=== PATIENT | male | born 1960 | race Caucasian/White ===

== ENCOUNTER 2019-11-11 10:57 | Emergency (ER) | payer SELFPAY ==
--- NOTE | 2019-11-11 10:59 | ED_ITS ---
Entered by Horacio James, acting as scribe for Tess Chavez MD HPI - General Adult General: Chief complaint: General Medical Stated complaint: High BP Time Seen by Provider: 11/11/19 11:05 History of Present Illness: HPI narrative: 58 yo male presents with hypertension. Pt states that he has ringing in his ears. Pt states that he hasn't had issues with his blood pressure before. Pt states that he went in for a physical on Tuesday, noticed his blood pressure was elevated. Pt states that he has felt sluggish for a few days. MD complaint: hypertension Associated symptoms: Reports chest pain (pressure more than pain); Deny dyspnea, headache(s), nausea, rash or vomiting Review of Systems Const: Denies: fever, chills, body aches or change in appetite Eyes: Denies: blurry vision or eye discomfort ENMT: Denies: throat pain or dental pain Card: Reports: chest pain (pressure more than pain) Resp: Denies: shortness of breath GI: Denies: abdominal pain, nausea, vomiting or diarrhea : Denies: painful urination Musc: Denies: neck pain or back pain Skin/Breast: Denies: rash Neuro: Denies: headache Psych: Denies: depression Sean/Lymph: Denies: easy bruising All/Imm: Denies: hives PFSH ED PFSH: Social History Smoking and tobacco status: current every day smoker Current gender identity: Male Physical Exam Const: COMMON NORMALS: no apparent distress, oriented x3 and healthy appearing HENMT: COMMON NORMALS: normocephalic and head/scalp atraumatic HEAD & SCALP: normocephalic and atraumatic GENERAL EAR: other (ringing in his ears) Eye: COMMON NORMALS: PERRL and EOMs intact bilaterally PUPIL: Yes PERRL Neck/C-Spine: COMMON NORMALS: full ROM and supple Chest: COMMONS NORMALS: inspection of chest normal and palpation of chest normal Resp: COMMON NORMALS: normal respiratory effort, no retractions, no use of accessory muscles and clear to auscultation bilaterally AUSCULTATION: clear to auscultation bilaterally Cardio: COMMON NORMALS: regular rate, regular rhythm and no murmurs RATE: regular rate RHYTHM: regular rhythm GI: COMMON NORMALS: normal to inspection, nondistended, normoactive bowel sounds, soft to palpation, non-tender and no masses PALPATION: Yes soft Extremity: COMMON NORMALS: normal to inspection and full ROM Neuro: COMMON NORMALS: oriented x3, moves all extremities and no focal motor deficits Psych: COMMON NORMALS: mental status grossly normal, thought process normal and cooperative THOUGHT PROCESS: normal thought process Skin: COMMON NORMALS: no rashes or lesions noted and no wounds GENERAL SKIN EXAM: no rashes or lesions noted Course Vital Signs: Vital signs: Vital Signs Temperature 97.9 F 11/11/19 11:00 Pulse Rate 86 11/11/19 12:25 Respiratory Rate 18 11/11/19 12:25 Blood Pressure 166/106 11/11/19 12:25 Pulse Oximetry 98 11/11/19 12:25 MDM - General Adult MDM Narrative: Medical decision making narrative: Patient presents here with hypertension is likely been chronic in nature. His lab work is all normal blood pressures improved here. We will start him on HCTZ. Patient also has neutropenia and he states he has ProFe area. Informed him he needs to get a PCP and will set him up with 1 here to follow his white cell count and his blood pressure. Patient's had no fever or signs of any illness. He is to return if worsening. Lab Data: Labs: Lab Results 11/11/19 11/11/19 11/11/19 Range/Units 11:11 11:11 11:11 WBC 2.6 L (4.0-10.0) 10^3/ uL RBC 4.33 (4.1-5.3) 10^6/u L Hgb 14.6 (11.7-16.6) g/dL Hct 42.3 (42.0-52.0) % MCV 97.7 H (80-94) fL MCH 33.7 (28.0-34.0) pg MCHC 34.5 (30.0-36.0) g/dL RDW 13.3 (12.1-15.1) % Plt Count 118 L (130-400) 10^3/c mm MPV 9.8 (7.4-10.4) fL Neut % (Auto) 28.8 % Lymph % (Auto) 55.8 % [place] % (Auto) 10.0 % Eos % (Auto) 4.6 % Baso % (Auto) 0.8 % Neut # (Auto) 0.8 L* (1.8-7.7) 10^3/u L Lymph # (Auto) 1.5 (0.8-4.8) 10^3/u L [place] # (Auto) 0.3 (0.2-0.9) 10^3/u L Eos # (Auto) 0.1 (0.0-0.8) 10^3/u L Baso # (Auto) 0.0 (0.0-0.1) 10^3/u L Nucleated RBC % (a uto) 0 % Nucleated RBCs # 0.0 /100WBC Sodium 139 (136-145) mmol/L Potassium 3.7 (3.5-5.1) mmol/L Chloride 101 (98-107) mmol/L Carbon Dioxide 28 (22-29) mmol/L Anion Gap 13.7 (5-19) BUN 8 (8-23) mg/dL Creatinine 1.0 (0.7-1.2) mg/dL GFR Calculation 76.2 L (90-130) mL/min Glucose 153 H (65-115) mg/dL Calcium 9.7 (8.5-10.5) mg/dL Total Bilirubin 0.5 (0.15-1.2) mg/dL AST 48 H (0-40) U/L ALT 57 H (0-41) U/L Alkaline Phosphata se 87 (40-130) IU/L Troponin T Baselin e 15 (0-15) ng/mL Total Protein 7.0 (6.6-8.7) g/dL Albumin 3.9 (3.5-5.2) g/dL Globulin 3.1 (1.3-4.6) g/dL EKG Data^: EKG 1: Attestation: I personally reviewed and interpreted this EKG as follows: EKG interpretation date: 11/11/19 EKG interpretation time: 11:11 Computer generated interpretation: Normal sinus rhythm heart rate [address] or T wave abnormalities QRS 98 QTC 405 Discharge Plan Discharge Patient Disposition: Home, Self-Care Clinical Impression: Neutropenia Hypertension Qualifiers: Hypertension type: essential hypertension Qualified Code(s): I10 - Essential (primary) hypertension Condition: Stable Prescriptions: New hydrochlorothiazide 25 mg tablet 25 mg PO DAILY Qty: 30 RF: 0 Discharge Orders: Discharge Order (Routine); Ordered 11/11/19 Ordered By: Tess Chavez Discharge Diet: Advance as tolerated Discharge Activity: Resume usual activity Patient Instructions: Hypertension (ED) Discharge Date/Time: 11/11/19 12:28 Coding Level of Care Code ED Agricultural Lender for Chg Fwd Exam Comprehensive The documentation recorded by the Jacob shine Kialy, accurately reflects the service I personally performed and the decisions made by Kathy nowak Korby, MD
[2019-11-11 11:00] VITALS: BP 204/137; PULSE 89; RESP 18; TEMP 36.6; O2SAT 98; BMI 22.8
--- NOTE | 2019-11-11 11:09 | ECG_ITS ---
Measurements Intervals [place] Rate: 86 P: 65 CA: 177 QRS: 6 QRSD: 98 T: 48 QT: 362 QTc: 433 SINUS RHYTHM No previous ECG available for comparison Electronically Signed On 11-11-2019 20:00:07 COMPUTED TOMOGRAPHY TECHNICIAN by Allan Munguia M.D. [email or web address]
[2019-11-11] MEDS: labetalol 5 mg/mL SDV 20mL 20 MG IVP (11:22)
[2019-11-11 11:41] LABS: Basophils % 0.8 %; Eosinophils # 0.1 10^3/uL (0.0-0.8); Eosinophils % 4.6 %; Hematocrit 42.3 % (42.0-52.0); Hemoglobin 14.6 g/dL (11.7-16.6); Lymphocytes # 1.5 10^3/uL (0.8-4.8); Lymphocytes % 55.8 %; Mean Corpuscular HGB Conc 34.5 g/dL (30.0-36.0); Mean Corpuscular Hemoglobin 33.7 pg (28.0-34.0); Mean Corpuscular Volume 97.7 fL (80-94); Mean Platelet Volume 9.8 fL (7.4-10.4); Monocytes # 0.3 10^3/uL (0.2-0.9); Neutrophils % 28.8 %; Nucleated Red Blood Cells % 0 %; Platelet Count 118 10^3/cmm (130-400); Red Blood Count 4.33 10^6/uL (4.1-5.3); Red Cell Distribution Width 13.3 % (12.1-15.1); White Blood Count 2.6 10^3/uL (4.0-10.0)
[2019-11-11 11:42] LABS: Alanine Aminotransferase 57 U/L (0-41); Albumin Level 3.9 g/dL (3.5-5.2); Alkaline Phosphatase 87 IU/L (40-130); Anion Gap 13.7 (5-19); Aspartate Amino Transferase 48 U/L (0-40); Blood Urea Nitrogen 8 mg/dL (8-23); Calcium 9.7 mg/dL (8.5-10.5); Carbon Dioxide 28 mmol/L (22-29); Chloride 101 mmol/L (98-107); Globulin 3.1 g/dL (1.3-4.6); Glomerular Filtration Rate 76.2 mL/min (90-130); Glucose 153 mg/dL (65-115); Neutrophils # 0.8 10^3/uL (1.8-7.7); Potassium 3.7 mmol/L (3.5-5.1); Sodium 139 mmol/L (136-145); Total Bilirubin 0.5 mg/dL (0.15-1.2)
[2019-11-11 11:44] LABS: Troponin(5th) Baseline 15 ng/mL (0-15)
--- NOTE | 2019-11-11 11:46 | XRR_ITS ---
PROCEDURE INFORMATION: Exam: XR Chest, 1 View Exam date and time: 11/11/2019 11:47 AM Age: 58 years old Clinical indication: Pain; Chest pressure; Additional info: HTN TECHNIQUE: Imaging protocol: XR of the chest Views: 1 view. COMPARISON: No relevant prior studies available. FINDINGS: Lungs: Unremarkable. No consolidation. Pleural space: Unremarkable. No pleural effusion. No pneumothorax. Heart/Mediastinum: Unremarkable. No cardiomegaly. Bones/joints: Unremarkable. XR/XR chest 1V portable [id number] IMPRESSION: No acute findings.
[2019-11-11 11:59] VITALS: BP 150/92; PULSE 89; RESP 18; O2SAT 98
[2019-11-11 12:25] VITALS: BP 166/106; PULSE 86; RESP 18; O2SAT 98
--- NOTE | 2019-11-12 14:28 | DCPLANNER ---
regional business manager had message to speak with patient about getting established with a primary care physician. regional business manager called patient, unable to speak with patient or leave a voicemail for patient. A recording stated that patients phone is no longer in service.
== END 2019-11-11 12:28 | disposition home or self-care (01) ==
PROVIDERS: Emergency Provider Emergency Medicine
DX: D70.9 Neutropenia, unspecified (principal); I10 Essential (primary) hypertension; F17.200 Nicotine dependence, unspecified, uncomplicated
CPT/HCPCS: 36415; 71045; 80053; 84484; 85025; 93005; 96374; 99281; 99283; J3490

== ENCOUNTER → 2020-05-15 16:12 | Outpatient (BNVA) | payer OTHER, SELFPAY | PROVIDERS: Visit Provider Internal Medicine | DX: B18.2 Chronic viral hepatitis C (principal); Z12.11 Encounter for screening for malignant neoplasm of colon | CPT/HCPCS: 80053; 82105; 84443; 85025 ==

== ENCOUNTER 2020-05-19 07:32 | Inpatient (IN) | payer SELFPAY ==
[2020-05-19] VITALS (15 sets, daily range): BP systolic 100–155; BP diastolic 71–104; PULSE 57–113; RESP 13–221; TEMP 36.3–37.5; O2SAT 95–100; BMI 23.6
--- NOTE | 2020-05-19 07:48 | XRR_ITS ---
PROCEDURE INFORMATION: Exam: XR Chest, 1 View Exam date and time: 05/19/2020 7:53 AM Age: 59 years old Clinical indication: Patient HX: Hematemesis starting last night; Additional info: Syncope TECHNIQUE: Imaging protocol: XR of the chest Views: Frontal portable upright view of the chest. COMPARISON: CR XR chest 1V portable [id number] 11/11/2019 11:58 AM FINDINGS: Lungs: The lungs are clear bilaterally. The pulmonary vasculature is normal. Pleural space: No pleural effusion. No pneumothorax. Heart/Mediastinum: The heart is normal in size and contour. Mediastinum: Stable. Bones/joints: Stable. XR/XR chest 1V portable [id number] IMPRESSION: No acute cardiopulmonary abnormality identified.
--- NOTE | 2020-05-19 07:51 | CTR_ITS ---
PROCEDURE INFORMATION: Exam: CT Abdomen And Pelvis With Contrast Exam date and time: 05/19/2020 7:53 AM Age: 59 years old Clinical indication: Nausea and vomiting; Abdominal pain; Patient HX: Epigastric pain with nausea and coffee ground emesis; Additional info: Gib TECHNIQUE: Imaging protocol: Computed tomography of the abdomen and pelvis with intravenous contrast. Radiation optimization: All CT scans at this facility use at least one of these dose optimization techniques: automated exposure control; mA and/or kV adjustment per patient size (includes targeted exams where dose is matched to clinical indication); or iterative reconstruction. Contrast material: OMNI 300; Contrast volume: 95 ml; Contrast route: INTRAVENOUS (IV); COMPARISON: No relevant prior studies available. RADIATION DOSE METRICS: Total DLP (mGy-cm): 449.79 FINDINGS: Mediastinal space: A small sliding hiatal hernia is present above the level of the diaphragm. Small enhancing paraesophageal varices. Liver: Normal. No mass. Gallbladder and bile ducts: Normal. No calcified stones. No ductal dilation. Pancreas: Normal. No ductal dilation. Spleen: ToThe spleen demonstrates a few small granulomatous calcifications. Adrenals: 10.6 mm and 10.1 mm left adrenal nodules. Kidneys and ureters: Normal. No hydronephrosis. Stomach and bowel: Upper gastric body mucosal hypertrophy. Sigmoid and descending colonic diverticula are present without evidence of diverticulitis. No active gastrointestinal bleeding site identified. Appendix: The vermiform appendix is normal. Intraperitoneal space: Unremarkable. No free air. No significant fluid collection. Vasculature: Mild aortic atherosclerotic calcification without aneurysm. The iliac arteries show mild bilateral atherosclerotic calcifications without evidence of aneurysm. Lymph nodes: No enlarged lymph nodes. Bladder: Unremarkable as visualized. Reproductive: The prostate gland demonstrates nonspecific parenchymal calcifications. Bones/joints: Small L4 vertebral body hemangioma. L2-L3 degenerative disc disease with mild retrolisthesis and spondylosis. Diffuse osteopenia. Soft tissues: Right pelvic phlebolith. CT/CT abdomen pelvis w con* [id number] IMPRESSION: 1. Nonspecific gastritis. 2. Small left adrenal nodules. Comparison with prior studies recommended, if available. Otherwise followup may be helpful. 3. Diverticulosis. 4. Small hiatal hernia. 5. Small enhancing paraesophageal varices. 6. Chronic calcific prostatitis. Radiation Dose CTDIVOL = (mGy): DLP = 449.79 (mGy-cm)
[2020-05-19 07:56] LABS: Basophils % 0.2 %; Eosinophils # 0.1 10^3/uL (0.0-0.8); Eosinophils % 1.6 %; Hematocrit 35.6 % (42.0-52.0); Hemoglobin 12.6 g/dL (11.7-16.6); Lymphocytes # 3.1 10^3/uL (0.8-4.8); Lymphocytes % 34.2 %; Mean Corpuscular HGB Conc 35.4 g/dL (30.0-36.0); Mean Corpuscular Hemoglobin 34.1 pg (28.0-34.0); Mean Corpuscular Volume 96.2 fL (80-94); Mean Platelet Volume 10.2 fL (7.4-10.4); Monocytes % 11.1 %; Neutrophils # 4.69 10^3/uL (1.8-7.7); Neutrophils % 52.6 %; Nucleated Red Blood Cells % 0 %; Platelet Count 193 10^3/cmm (130-400); Red Cell Distribution Width 13.1 % (12.1-15.1); White Blood Count 8.9 10^3/uL (4.0-10.0)
[2020-05-19] MEDS: sodium chloride 0.9% 500 ML 999 ML IV (08:00)
--- NOTE | 2020-05-19 08:00 | PC.NURSE ---
Patient was educated at this time urine sample is needed.
[2020-05-19] MEDS: ondansetron 2 mg/ML SDV 2 mL 4 MG IVP ×3 (08:02→16:43)
[2020-05-19] MEDS: pantoprazole 40 mg SDV 80 MG IVP (08:02)
--- NOTE | 2020-05-19 08:02 | ED_ITS ---
HPI - Abdominal Pain General: Chief Complaint: Abdominal Pain Stated Complaint: abd pain Time Seen by Provider: 05/19/20 07:40 History of Present Illness: HPI narrative: 59-year-old male comes in complaining of coffee-ground emesis and wilver hematemesis that began last night he states he has had multiple episodes of vomiting unable to keep anything down. He is a regular drinker usually drinks hard liquor multiple times a day recently has been trying to stop he has had previous EGDs but is been multiple years since he has had's had them is been long this 50 years ago. He also has a history of hepatitis C he was recently started on some blood pressure m edications. Patient has a basin at the bedside with frankly bloody emesis and some slight coffee-ground emesis. MD elicited complaint: abdominal pain Pertinent past history: gastrointestinal bleeding Onset (ago): hour(s) Pain Consistency: constant Location: Epigastric Severity: mild Quality: cramping Radiation: none Migration to: no migration Exacerbating factors: eating and vomiting Relieving factors: nothing Associated Symptoms: Reports anorexia, bloating, coffee ground emesis, GI cramping, dyspepsia, heartburn, hematemesis, nausea, poor appetite and vomiting; Denies diarrhea, dysuria, fever(s), hematochezia, hematuria, fecal incontinence, loose stools, melena and syncope Review of Systems Const: Denies: fever(s) ENMT: Denies: throat pain, ear or mastoid pain, nasal discharge or nasal congestion Card: Denies: syncope Resp: Denies: dyspnea, productive cough or non-productive cough GI: Reports: nausea, vomiting, hematemesis, coffee ground emesis, heartburn, bloating and GI cramping; Denies: diarrhea, fecal incontinence, hematochezia or melena : Denies: dysuria or hematuria Skin/Breast: Denies: rash or pruritus [facility] ED PFSH: Medical History (Updated 05/19/20 @ 10:19 by Ronny Gay DO) Alcohol use disorder, moderate, dependence Cannabis use disorder, severe, dependence Generalized anxiety disorder Hep C w/o coma, chronic Hypertension Social History Smoking and tobacco status: current every day smoker cigarettes Packs smoked per day: 0.5 Years cigarettes smoked: 45 Quit status (tobacco): has tried quititng Number of times tried to quit tobacco: 10 Second hand smoke exposure: No Smoking risk assessment/counseling performed?: No Current gender identity: Male Physical Exam Const: COMMON NORMALS: no acute distress GENERAL APPEARANCE: cooperative and comfortable ORIENTATION/CONSCIOUSNESS: Yes awake, Yes oriented to person, Yes oriented to place and Yes oriented to time HENMT: COMMON NORMALS: normocephalic, atraumatic, hearing grossly normal bilaterally, external ears normal, EAC's normal, TM's normal bilaterally, Normal nasal mucous membranes and turbinates present, moist oral mucous membranes and oropharynx normal HEAD & SCALP: normocephalic and atraumatic NOSE: Normal nasal mucous membranes and turbinates present EXTERNAL EAR: Yes external ears normal EXTERNAL AUDITORY CANAL: EAC's normal TYMPANIC MEMBRANE: TM's normal bilaterally Eye: COMMON NORMALS: Equal, round and reactive pupils present, EOMs intact bilaterally, conjunctivae normal and no scleral icterus CONJUNCTIVA: Yes conjunctivae normal PUPIL: Yes Equal, round and reactive pupils present Neck/C-Spine: COMMON NORMALS: full ROM, no lymphadenopathy, supple and no JVD Lymph: LYMPHATIC: no lymphadenopathy noted and no lymphedema noted Resp: COMMON NORMALS: normal respiratory effort, No retractions, No use of accessory muscles and clear to auscultation bilaterally AUSCULTATION: clear to auscultation bilaterally Cardio: COMMON NORMALS: no JVD, regular rate, regular rhythm and No murmurs present (Cardio) RATE: regular rate RHYTHM: regular rhythm GI: COMMON NORMALS: Soft to palpation and No hepatosplenomegaly present AUSCULTATION: Yes normoactive bowel sounds PALPATION: Yes Soft to palpation, Yes Tenderness to palpation present (GI) (Epigastric), No Guarding due to palpation present (GI) and Yes No hepatosplenomegaly present Extremity: COMMON NORMALS: normal to inspection, capillary refill normal, no clubbing, cyanosis or edema, no calf tenderness and no pedal edema Neuro: SENSORIUM/ORIENTATION: Yes oriented to person, Yes oriented to place and Yes oriented to time Skin: COMMON NORMALS: no rashes or lesions noted GENERAL SKIN EXAM: no rashes or lesions noted Course Vital Signs: Vital signs: Vital Signs Temperature 97.3 F L 05/19/20 07:34 Pulse Rate 103 H 05/19/20 10:04 Respiratory Rate 13 05/19/20 10:04 Blood Pressure 143/85 05/19/20 10:04 Pulse Oximetry 100 05/19/20 10:04 MDM - Abdominal Pain MDM Narrative: Medical decision making narrative: Patient has acute hypokalemia secondary to repeated vomiting. Also has evidence of upper GI bleed with elevated BUN creatinine is slightly elevated as well I believe that is partially due to dehydration. We will go ahead and admit she is already started on a IV's potassium supplement. Keep the patient n.p.o. we have given him fluids his hemoglobin is stable at this point recheck hemoglobin in the morning discussed Dr. Jerome he will be attending Lab Data: Labs: Lab Results 05/19/20 05/19/20 05/19/20 Range/Units 07:42 07:42 07:42 WBC 8.9 (4.0-10.0) 10^3/ uL RBC 3.70 L (4.1-5.3) 10^6/u L Hgb 12.6 (11.7-16.6) g/dL Hct 35.6 L (42.0-52.0) % MCV 96.2 H (80-94) fL MCH 34.1 H (28.0-34.0) pg MCHC 35.4 (30.0-36.0) g/dL RDW 13.1 (12.1-15.1) % Plt Count 193 (130-400) 10^3/c mm MPV 10.2 (7.4-10.4) fL Neut % (Auto) 52.6 % Lymph % (Auto) 34.2 % [place] % (Auto) 11.1 % Eos % (Auto) 1.6 % Baso % (Auto) 0.2 % Neut # (Auto) 4.69 (1.8-7.7) 10^3/u L Lymph # (Auto) 3.1 (0.8-4.8) 10^3/u L [place] # (Auto) 1.0 H (0.2-0.9) 10^3/u L Eos # (Auto) 0.1 (0.0-0.8) 10^3/u L Baso # (Auto) 0.0 (0.0-0.1) 10^3/u L Nucleated RBC % (a uto) 0 % Nucleated RBCs # 0.0 /100WBC PT 12.90 (12.1-14.9) SECO NDS INR 0.94 (0.8-1.2) APTT 27.7 (23.9-36.7) SECO NDS Sodium (136-145) mmol/L Potassium (3.5-5.1) mmol/L Chloride (98-107) mmol/L Carbon Dioxide (22-29) mmol/L Anion Gap (5-19) BUN (8-23) mg/dL Creatinine (0.7-1.2) mg/dL GFR Calculation (90-130) mL/min Glucose (65-115) mg/dL Calculated Osmolal ity (285-295) mOsm/k g Lactate (0.5-2.2) mmol/L Calcium (8.5-10.5) mg/dL Total Bilirubin (0.15-1.2) mg/dL AST (0-40) U/L ALT (0-41) U/L Alkaline Phosphata se (40-130) IU/L Total Protein (6.6-8.7) g/dL Albumin (3.5-5.2) g/dL Globulin (1.3-4.6) g/dL Lipase (13-60) U/L Urine Color (Yellow) Urine Appearance (CLEAR) Urine pH (5-7) Ur Specific Gravit y (1.005-1.030) Urine Protein (Negative) Urine Glucose (UA) (Normal) Urine Ketones (Negative) Urine Blood (Negative) Urine Nitrate (Negative) Urine Bilirubin (NEGATIVE) Urine Urobilinogen (Negative) mg/dL Ur Leukocyte Felisha ase (Negative) Blood Type A Positive Rho(D) Type Positive 05/19/20 05/19/20 05/19/20 Range/Units 07:42 07:42 08:34 WBC (4.0-10.0) 10^3/ uL RBC (4.1-5.3) 10^6/u L Hgb (11.7-16.6) g/dL Hct (42.0-52.0) % MCV (80-94) fL MCH (28.0-34.0) pg MCHC (30.0-36.0) g/dL RDW (12.1-15.1) % Plt Count (130-400) 10^3/c mm MPV (7.4-10.4) fL Neut % (Auto) % Lymph % (Auto) % [place] % (Auto) % Eos % (Auto) % Baso % (Auto) % Neut # (Auto) (1.8-7.7) 10^3/u L Lymph # (Auto) (0.8-4.8) 10^3/u L [place] # (Auto) (0.2-0.9) 10^3/u L Eos # (Auto) (0.0-0.8) 10^3/u L Baso # (Auto) (0.0-0.1) 10^3/u L Nucleated RBC % (a uto) % Nucleated RBCs # /100WBC PT (12.1-14.9) SECO NDS INR (0.8-1.2) APTT (23.9-36.7) SECO NDS Sodium 133 L (136-145) mmol/L Potassium 2.9 L (3.5-5.1) mmol/L Chloride 95 L (98-107) mmol/L Carbon Dioxide 23 (22-29) mmol/L Anion Gap 17.9 (5-19) BUN 69 H (8-23) mg/dL Creatinine 1.7 H (0.7-1.2) mg/dL GFR Calculation 41.2 L (90-130) mL/min Glucose 190 H (65-115) mg/dL Calculated Osmolal ity 280 L (285-295) mOsm/k g Lactate 2.2 (0.5-2.2) mmol/L Calcium 9.5 (8.5-10.5) mg/dL Total Bilirubin 0.9 (0.15-1.2) mg/dL AST 41 H (0-40) U/L ALT 72 H (0-41) U/L Alkaline Phosphata se 51 (40-130) IU/L Total Protein 8.1 (6.6-8.7) g/dL Albumin 4.4 (3.5-5.2) g/dL Globulin 3.7 (1.3-4.6) g/dL Lipase 28 (13-60) U/L Urine Color Yellow (Yellow) Urine Appearance Clear (CLEAR) Urine pH 5 (5-7) Ur Specific Gravit y 1.020 (1.005-1.030) Urine Protein Neg (Negative) Urine Glucose (UA) Norm (Normal) Urine Ketones Negative (Negative) Urine Blood Neg (Negative) Urine Nitrate Negative (Negative) Urine Bilirubin Neg (NEGATIVE) Urine Urobilinogen Norm (Negative) mg/dL Ur Leukocyte Felisha ase Negative (Negative) Blood Type Rho(D) Type Discharge Plan Discharge Patient Disposition: Admitted As Inpatient Admit Provider: Israel Jerome Clinical Impression: Acute upper GI bleed, Hypokalemia, Alcohol abuse Condition: Stable Coding Level of Care Code ED [employer] Shop Supervisor for Skylar Fwd Exam Comprehensive
--- NOTE | 2020-05-19 08:05 | PC.NURSE ---
Patient to CT at this time. Urine sample will be obtained and patient will be placed on automatic serging machine operator upon patients arrival back to the room.
[2020-05-19 08:13] LABS: INR 0.94 (0.8-1.2)
[2020-05-19 08:14] LABS: Partial Thromboplastin Time 27.7 SECONDS (23.9-36.7)
[2020-05-19] MEDS: iohexol 300 mg/mL 100 mL Btl IV (08:15)
[2020-05-19 08:17] LABS: Alanine Aminotransferase 72 U/L (0-41); Albumin Level 4.4 g/dL (3.5-5.2); Alkaline Phosphatase 51 IU/L (40-130); Anion Gap 17.9 (5-19); Aspartate Amino Transferase 41 U/L (0-40); Blood Urea Nitrogen 69 mg/dL (8-23); Calcium 9.5 mg/dL (8.5-10.5); Carbon Dioxide 23 mmol/L (22-29); Chloride 95 mmol/L (98-107); Globulin 3.7 g/dL (1.3-4.6); Glomerular Filtration Rate 41.2 mL/min (90-130); Glucose 190 mg/dL (65-115); Lipase 28 U/L (13-60); Osmolality Calculated 280 mOsm/kg (285-295); Sodium 133 mmol/L (136-145); Total Bilirubin 0.9 mg/dL (0.15-1.2); Total Protein 8.1 g/dL (6.6-8.7)
[2020-05-19 08:18] LABS: Lactate (Lactic Acid level) 2.2 mmol/L (0.5-2.2)
--- NOTE | 2020-05-19 08:21 | PC.NURSE ---
Patient returned to room from CT. This RN asked patient if he was able to void. Patient states you're not gonna get that right now. Educated patient that we need urine sample as soon as possible. Call light given to patient to use if patient is able to void or needs something.
[2020-05-19 08:22] LABS: Potassium 2.9 mmol/L (3.5-5.1)
--- NOTE | 2020-05-19 08:34 | PC.NURSE ---
Patients urine sample collected and sent to lab at this time.
[2020-05-19 08:46] LABS: Add Urine Microscopic? NO
[2020-05-19] MEDS: potassium chloride premix 40 MEQ/100 ML PREMIX 25 MEQ IV (08:46)
--- NOTE | 2020-05-19 08:47 | PC.NURSE ---
At patients bedside to administer potassium. Patients sister reports that he is still vomiting and sick to his stomach. Educated patient and family that I would let the physician know. Patient also reported that he would like some ice chips. Educated the patient I would ask the physician. Will continue to monitor patient.
[2020-05-19 08:55] LABS: Bilirubin Urine Neg (NEGATIVE); Blood Urine Neg (Negative); Glucose Urine UA Norm (Normal); Ketones Urine Negative (Negative); Leukocyte Esterase Urine Negative (Negative); Nitrate Urine Negative (Negative); Protein Urine Neg (Negative); Urine Appearance Clear (CLEAR); Urine Color Yellow (Yellow); Urobilinogen Urine Norm (Negative); pH Urine 5 (5-7)
[2020-05-19] MEDS: metoclopramide 5 mg/mL SDV 2 mL 10 MG IVP (08:57)
[2020-05-19] MEDS: sodium chloride 0.9% 1,000 ML 999 ML IV (08:57)
--- NOTE | 2020-05-19 09:31 | PC.NURSE ---
ROunded on patient. Patient resting in bed no distress noted at this time. Patient reports that he is able to relax now. Patient has no needs will continue to monitor patient.
--- NOTE | 2020-05-19 11:02 | P.HP_ITS ---
Providers/Chief Complaint Admitting Physician: Israel Jerome MD Chief Complaint: abd pain History of Present Illness 59-year-old male with PMH of ,hep c, HTN, alcohol abuse disorder came in with c/o coffee-ground emesis and wilver hematemesis that began last night he states he has had multiple episodes of vomiting unable to keep anything down. Apart from vomiting he deny any cough, sob, chest pain,fever, dark stool,hematuria, constipation, diarrhea. He is a regular drinker usually drinks hard liquor multiple times a day. EGD and colonscopy was done 15 years back.He is not aware of findings.His H/H and Vitals are stable. Review of Systems General: Reports: 10 or more systems reviewed and unremarkable except in HPI and below Narrative: 66-year-old currently not in acute distress being admitted for chest pain evaluation Const: Denies: fever(s), chills, body aches, change in appetite or diaphoresis Card: Denies: palpitations, edema, swelling of feet/ankles, dyspnea on exertion, orthopnea or leg pain with exertion Resp: Denies: dyspnea, productive cough, wheezing or pain on inspiration : Denies: flank pain or difficulty urinating Musc: Denies: back pain, extremity pain or extremity swelling Neuro: Denies: headache(s), difficulty walking or confusion Medications/Allergies Home Medications Medication Instructions Recorded Confirmed Last Taken Type hydrochlorothiazide 25 mg tablet 25 mg PO DAILY #30 tab 02/07/20 05/19/20 05/17/20 Rx lansoprazole 30 mg capsule,delayed 30 mg PO DAILY 02/07/20 05/19/20 05/17/20 History release amlodipine 5 mg tablet 5 mg PO DAILY 05/15/20 05/19/20 05/17/20 History irbesartan 300 mg tablet 300 mg PO DAILY 05/15/20 05/19/20 05/17/20 History sofosbuvir 400 mg-velpatasvir 100 1 tab PO DAILY 84 Days #28 tab 05/15/20 05/19/20 Unknown Rx mg tablet Goody's Extra Strength 1 packet PO PRN 05/19/20 05/19/20 Unknown History ibuprofen 400 mg PO PRN 05/19/20 05/19/20 Unknown History Allergies Allergy/AdvReac Type Severity Reaction Status Date / Time No Known Allergies Allergy Verified 09/07/20 08:51 PFSH Acute PFSH: Medical History (Updated 05/19/20 @ 18:47 by Israel Jerome MD) Alcohol use disorder, moderate, dependence Cannabis use disorder, severe, dependence Generalized anxiety disorder Hep C w/o coma, chronic Hypertension Social History Smoking and tobacco status: current every day smoker cigarettes Packs smoked per day: 0.5 Years cigarettes smoked: 45 Quit status (tobacco): has tried quititng Number of times tried to quit tobacco : 10 Second hand smoke exposure: No Smoking risk assessment/counseling performed?: No Current gender identity: Male Vitals/I&O/Wt Last Vital Signs Temp 97.3 F L 05/19/20 07:34 Pulse 95 05/19/20 10:50 Resp 20 H 05/19/20 10:50 BP 132/80 05/19/20 10:50 Pulse Ox 100 05/19/20 10:50 05/18/20 05/19/20 05/19/20 22:59 06:59 14:59 Intake Total 500 / 500 Balance 500 / 500 Weight last 48 hrs Weight 72.575 kg Physical Exam Const: COMMON NORMALS: patient oriented x3 HENMT: COMMON NORMALS: normocephalic, atraumatic, hearing grossly normal bilaterally and external ears normal HEAD & SCALP: normocephalic and atraumatic EXTERNAL EAR: Yes external ears normal Eye: COMMON NORMALS: no scleral icterus GENERAL EYE: appearance normal, both eyes and all related structures Chest: COMMONS NORMALS: normal inspection of the chest and normal palpation of entire chest wall CHEST: Yes Symmetrical chest wall rise Resp: COMMON NORMALS: normal respiratory effort, No retractions, No use of accessory muscles and clear to auscultation bilaterally EFFORT & INSPECTION: Yes symmetric chest movement AUSCULTATION: clear to auscultation bilaterally Cardio: COMMON NORMALS: regular rate, regular rhythm, S1 normal heart sound present, S2 normal heart sound present, No gallops present (Cardio), No murmurs present (Cardio), No rub (Cardio) and Peripheral pulses 2+ throughout RATE: regular rate RHYTHM: regular rhythm HEART SOUNDS: S1 normal heart sound present and S2 normal heart sound present PERIPHERAL PULSES: Peripheral pulses 2+ throughout GI: COMMON NORMALS: Normal to inspection, nondistended, normoactive bowel sounds present, Soft to palpation, non-tender, No hepatosplenomegaly present and no masses AUSCULTATION: Yes normoactive bowel sounds PALPATION: Yes Soft to palpation and Yes No hepatosplenomegaly present RECTAL EXAM: Yes deferred : COMMON NORMALS: Yes no CVA tenderness BLADDER/KIDNEY EXAM: Yes no CVA tenderness Back/Pelvis: COMMON NORMALS: no CVA tenderness Extremity: COMMON NORMALS: no clubbing, cyanosis or edema and no pedal edema Neuro: COMMON NORMALS: patient oriented x3 Data : 05/19/20 07:42 05/19/20 07:42 CT Abd/Pel: I personally reviewed and interpreted this imaging study as follows: Radiologist's impression: 1. Nonspecific gastritis. 2. Small left adrenal nodules. Comparison with prior studies recommended, if available. Otherwise followup may be helpful. 3. Diverticulosis. 4. Small hiatal hernia. 5. Small enhancing paraesophageal varices. 6. Chronic calcific prostatitis. Xray Chest: The lungs are clear bilaterally. The pulmonary vasculature is normal. Pleural space: No pleural effusion. No pneumothorax. Heart/Mediastinum: The heart is normal in size and contour. Mediastinum: Stable. Bones/joints: Stable EKG 1: I personally reviewed and interpreted this EKG as follows: Military Lawyer Interpretation: SINUS TACHYCARDIA A&P Assessment and plan (1) Acute upper GI bleed: 49-year-old male with past medical history of alcohol abuse disorder he came in with chief complaint of having coffee-ground emesis. In the ER he received Protonix 80 IV x1 he was kept n.p.o. he has been started on Zofran for nausea and vomitting. He is hemodynamically stable. H&H is stable. We will continue to keep him n.p.o and continue to monitor his H&H. Amylase and lipase are normal CT scan of abdomen and pelvis without contrast is consistent with nonspecific gastritis likely alcoholic gastritis. We will continue to monitor his CIWA score. If hemodynamically stable and H&H remains stable. We will plan to discharge him and he will follow Dr. Yap as an output for further work-up for his. Status: Acute (2) Hypokalemia: Came in with serum potassium of 2.8. Hypokalemia is likely secondary to vomiting. He has received potassium replacement . We will continue to monitor serum potassium. Status: Acute (3) Alcohol abuse: Patient has been drinking for quite some time. Earlier he was drinking multiple beers a day right now he drinks hard liquor multiple times a day. We will continue to monitor CIWA score. We have counseled him regarding quitting alcohol. Status: Acute (4) Hypertension: We will resume his home medication. Status: Acute (5) Generalized anxiety disorder: He is on as needed Ativan. Status: Acute (6) Cannabis use disorder, severe, dependence: No acute intervention will continue to monitor. Status: Acute (7) Hep C w/o coma, chronic: Patient will follow Dr. Yap as an outpatient. Status: Acute (8) GIGI (acute kidney injury): Patient comes in with serum creatinine of 1.7. Baseline creatinine is 1.0-1 point. GIGI is likely secondary to severe dehydration. Will order urine electrolytes. We will continue with IV hydration. We will avoid nephrotoxic medications. Status: Acute (9) Hyponatremia: On admission serum sodium is 133. hyponatremia is likely secondary to severe dehydration due to nausea and vomiting and poor oral intake. We will continue with i.v resuscittation. him Status: Acute Attestations Medical Necessity Statement*: Patient came in with acute upper G.I Bleed. Need 3 nights of hospital of hospital stay for further work-up and monitoring. Other Attestations: DVT PPX: SCD Code status: Full code Coding Level of Care Code Acute Upward Bound Director for [facility] Fwd Exam Comprehensive Diagnoses Acute upper GI bleed K92.2 Hypokalemia E87.6 Alcohol abuse F10.10 Hypertension I10 Generalized anxiety disorder F41.1 Cannabis use disorder, severe, dependence F12.20 Hep C w/o coma, chronic B18.2 GIGI (acute kidney injury) N17.9 Hyponatremia E87.1
--- NOTE | 2020-05-19 11:14 | ECG_ITS ---
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 Measurements Intervals [place] Rate: 100 P: 66 RI: 144 QRS: 48 QRSD: 97 T: 46 QT: 347 QTc: 448 Interpretive Statements SINUS TACHYCARDIA ABNORMAL RHYTHM ECG Compared to ECG 11/11/2019 11:11:38 Sinus rhythm no longer present Electronically Signed On 05-20-2020 17:39:43 CDT by Clare Loza M.D. [email or web address]
[2020-05-19] MEDS: sodium chloride 0.9% 1,000 ML 125 ML IV ×2 (12:00→21:13)
[2020-05-19] MEDS: pantoprazole 40 mg SDV IVP (12:01)
--- NOTE | 2020-05-19 12:05 | PC.NURSE ---
Pt admitted to the floor. Transferred via ambulation from the [facility] to the bed with no difficulties. Bilateral AC 18G IV's. Given his scheduled medications and something for nausea. Patient is currently in bed with call light in reach dry heaving into a basin. Potassium Chloride has approximately 20 minutes left of infusion. Blood pressure elevated to 148/99, pulse sinus tach at 104. All other vitals stable. Will continue to monitor.
--- NOTE | 2020-05-19 18:01 | PC.NURSE ---
Patient was blowing drying his self and touching his self in front of me because he said it made himself feel better
--- NOTE | 2020-05-19 18:10 | P.PN_ITS ---
Vitals/I&O/Wt Last Vital Signs Temp 99.5 F 05/19/20 15:16 Pulse 101 H 05/19/20 15:16 Resp 20 H 05/19/20 15:16 BP 155/92 05/19/20 15:16 Pulse Ox 96 05/19/20 15:16 05/19/20 05/19/20 05/19/20 06:59 14:59 22:59 Intake Total 500 / 500 Output Total 600 / 600 300 / 900 Balance -100 / -100 -300 / -400 Weight last 48 hrs Weight 72.575 kg Data : 05/19/20 07:42 05/19/20 07:42 Coding Level of Care Code Acute Chemical Engineering Professor for Wilfredog Rafa
--- NOTE | 2020-05-19 18:11 | PC.NURSE ---
During admission patient was visualized touching his groin area then he stated, I am sorry here I am fondling myself, but it makes me calmer and feel better. Patient stopped touching himself and put his hands above the covers and the admission was finished. Patient complained of nausea and asked if he could have his sister deliver a chairman ceo because when he blows it on his stomach it makes him feel better. A blow dryer that was checked off by H5 was given to the patient. Walked into patients room to find him holding the blow dryer too close to his abdomen which appeared to be reddened from the heat. Patient was instructed not to hold it to close and turn it down to low heat. Patient so far has followed instructions. Will continue to monitor patient for safety violations.
--- NOTE | 2020-05-19 18:24 | PC.NURSE ---
Patient was found asleep with blow dryer still on. Removed blow dryer from patients possession due to the fire safety risk and the burn risk he may have sustained due to holding the blow-dryer too close to his skin. Patient was upset but complied.
[2020-05-19] MEDS: amlodipine 5 mg Tablet 10 MG PO (19:27)
[2020-05-19] MEDS: morphine 4 mg/mL SDV 1 mL 2 MG IVP (20:35)
[2020-05-19] MEDS: LORazepam 2 mg Tablet PO (20:36)
[2020-05-20] VITALS (7 sets, daily range): BP systolic 107–120; BP diastolic 64–71; PULSE 77–88; RESP 16–19; TEMP 36.6–37; O2SAT 97–100
[2020-05-20] MEDS: sodium chloride 0.9% 1,000 ML 125 ML IV (04:33)
[2020-05-20 05:07] LABS: Basophils % 0.2 %; Hematocrit 29.1 % (42.0-52.0); Hemoglobin 10.1 g/dL (11.7-16.6); Lymphocytes # 2.2 10^3/uL (0.8-4.8); Lymphocytes % 45.8 %; Mean Corpuscular HGB Conc 34.7 g/dL (30.0-36.0); Mean Corpuscular Hemoglobin 33.9 pg (28.0-34.0); Mean Corpuscular Volume 97.7 fL (80-94); Mean Platelet Volume 10.3 fL (7.4-10.4); Monocytes # 0.5 10^3/uL (0.2-0.9); Monocytes % 10.3 %; Neutrophils # 2.06 10^3/uL (1.8-7.7); Neutrophils % 43.3 %; Nucleated Red Blood Cells % 0 %; Platelet Count 131 10^3/cmm (130-400); Red Blood Count 2.98 10^6/uL (4.1-5.3); Red Cell Distribution Width 13.3 % (12.1-15.1); White Blood Count 4.8 10^3/uL (4.0-10.0)
[2020-05-20 05:32] LABS: Alanine Aminotransferase 50 U/L (0-41); Albumin Level 3.4 g/dL (3.5-5.2); Alkaline Phosphatase 39 IU/L (40-130); Anion Gap 10.9 (5-19); Aspartate Amino Transferase 40 U/L (0-40); Blood Urea Nitrogen 30 mg/dL (8-23); Calcium 8.2 mg/dL (8.5-10.5); Carbon Dioxide 24 mmol/L (22-29); Chloride 108 mmol/L (98-107); Globulin 2.8 g/dL (1.3-4.6); Glomerular Filtration Rate 68.1 mL/min (90-130); Glucose 105 mg/dL (65-115); Osmolality Calculated 287 mOsm/kg (285-295); Sodium 140 mmol/L (136-145); Total Bilirubin 0.7 mg/dL (0.15-1.2); Total Protein 6.2 g/dL (6.6-8.7)
[2020-05-20 05:54] LABS: Potassium 2.9 mmol/L (3.5-5.1)
[2020-05-20] MEDS: lidocaine 1% INJ 20 mL 5 ML IV (06:21)
[2020-05-20] MEDS: potassium chloride premix 40 MEQ/100 ML PREMIX 25 MEQ IV ×2 (06:21→10:40)
[2020-05-20] MEDS: folic acid 1 mg Tablet PO (08:15)
[2020-05-20] MEDS: hydroCHLOROthiazide 25 mg Tablet PO (08:15)
[2020-05-20] MEDS: thiamine 100 mg Tablet PO (08:15)
[2020-05-20] MEDS: multivitamin therapeutic Tablet 1 TAB PO (08:15)
[2020-05-20] MEDS: amlodipine 5 mg Tablet 10 MG PO (08:15)
[2020-05-20] MEDS: pantoprazole 40 mg SDV IVP (08:16)
--- NOTE | 2020-05-20 11:06 | P.PN_ITS ---
Vitals/I&O/Wt Last Vital Signs Temp 98.6 F 05/20/20 07:51 Pulse 88 05/20/20 07:51 Resp 18 05/20/20 07:51 BP 111/71 05/20/20 07:51 Pulse Ox 99 05/20/20 07:51 05/19/20 05/20/20 05/20/20 22:59 06:59 14:59 Intake Total 1400 / 3000 916.667 / 3916.667 340 / 340 Output Total 300 / 900 200 / 1100 Balance 1100 / 2100 716.667 / 2816.667 340 / 340 Weight last 48 hrs Weight 77.111 kg Weight 72.575 kg Data : 05/20/20 04:34 05/20/20 04:34 Coding Level of Care Code Acute Display Fabrication Supervisor for Skylar Craig
--- NOTE | 2020-05-20 15:44 | P.DS_ITS ---
Discharge Providers Date of Admission: 05/19/20 10:15 Date of Discharge: May 20, 2020 Attending Provider at Admission: Israel Jerome MD Attending Provider at Discharge: Israel Jerome MD Diagnoses at Discharge Discharge Diagnosis (1) Acute upper GI bleed: (2) Hypokalemia: Status: Resolved (3) Alcohol abuse: Status: Acute (4) Hypertension: (5) Generalized anxiety disorder: (6) Cannabis use disorder, severe, dependence: (7) Hep C w/o coma, chronic: (8) GIGI (acute kidney injury): Status: Resolved (9) Hyponatremia: Status: Resolved Reason for Visit Reason for Visit: abd pain Hospital Course Discharge Summary: 59-year-old male with a past medical history of hypertension hep C generalized anxiety disorder, chronic alcohol abuse, came in with chief complaint of nausea, vomiting, minimal hematemesis. During his current hospital stay he was managed for upper GI bleed as well as for alcoholic gastritis. He was kept n.p.o. initially and was given IV Protonix. He did not experience any episodes of upper GI bleed when in hospital. His H&H remained stable. IV hydration was done. Next day he was transitioned to clear liquid diets which he tolerated well. He requested for being discharged as he was feeling perfectly well. He wanted to keep him for 1 more day and make sure that he is able to tolerate full diet, but the patient wanted to be discharged. At the time of discharge his vitals and labs were stable. He was discharged with advice to follow Dr. Yap as an outpatient.He was also counseled to quit alcohol. Physical Exam Const: COMMON NORMALS: patient oriented x3 HENMT: COMMON NORMALS: normocephalic, atraumatic, hearing grossly normal bilaterally and external ears normal HEAD & SCALP: normocephalic and atraumatic EXTERNAL EAR: Yes external ears normal Eye: COMMON NORMALS: no scleral icterus GENERAL EYE: appearance normal, both eyes and all related structures Chest: COMMONS NORMALS: normal inspection of the chest and normal palpation of entire chest wall CHEST: Yes Symmetrical chest wall rise Resp: COMMON NORMALS: normal respiratory effort, No retractions, No use of accessory muscles and clear to auscultation bilaterally EFFORT & INSPECTION: Yes symmetric chest movement AUSCULTATION: clear to auscultation bilaterally Cardio: COMMON NORMALS: regular rate, regular rhythm, S1 normal heart sound present, S2 normal heart sound present, No gallops present (Cardio), No murmurs present (Cardio), No rub (Cardio) and Peripheral pulses 2+ throughout RATE: regular rate RHYTHM: regular rhythm HEART SOUNDS: S1 normal heart sound present and S2 normal heart sound present PERIPHERAL PULSES: Peripheral pulses 2+ throughout GI: COMMON NORMALS: Normal to inspection, nondistended, normoactive bowel sounds present, Soft to palpation, non-tender, No hepatosplenomegaly present and no masses AUSCULTATION: Yes normoactive bowel sounds PALPATION: Yes Soft to palpation and Yes No hepatosplenomegaly present RECTAL EXAM: Yes deferred : COMMON NORMALS: Yes no CVA tenderness BLADDER/KIDNEY EXAM: Yes no CVA tenderness Back/Pelvis: COMMON NORMALS: no CVA tenderness Extremity: COMMON NORMALS: no clubbing, cyanosis or edema and no pedal edema Neuro: COMMON NORMALS: patient oriented x3 Discharge Data Data Completed and Pending: Completed Studies During Hospitalization Category Date Time Status CT abdomen pelvis w con* [id number] Urge nt Cat Scan 05/19/20 07:51 Completed XR chest 1V laly ble [id number] Stat Exams 05/19/20 07:48 Completed Pending at discharge Category Date Time Status Basic Metabolic P mali AM LABS Lab 05/21/20 04:00 Ordered Basic Metabolic P mlai AM LABS Lab 05/22/20 04:00 Ordered Labs from last 24 hours 05/20/20 05/20/20 04:34 04:34 WBC 4.8 RBC 2.98 L Hgb 10.1 L Hct 29.1 L MCV 97.7 H MCH 33.9 MCHC 34.7 RDW 13.3 Plt Count 131 MPV 10.3 Neut % (Auto) 43.3 Lymph % (Auto) 45.8 [place] % (Auto) 10.3 Eos % (Auto) 0.0 Baso % (Auto) 0.2 Neut # (Auto) 2.06 Lymph # (Auto) 2.2 [place] # (Auto) 0.5 Eos # (Auto) 0.0 Baso # (Auto) 0.0 Nucleated RBC % (a uto) 0 Nucleated RBCs # 0.0 Sodium 140 Potassium 2.9 L Chloride 108 H Carbon Dioxide 24 Anion Gap 10.9 BUN 30 H Creatinine 1.1 GFR Calculation 68.1 L Glucose 105 Calculated Osmolal ity 287 Calcium 8.2 L Total Bilirubin 0.7 AST 40 ALT 50 H Alkaline Phosphata se 39 L Total Protein 6.2 L D Albumin 3.4 L Globulin 2.8 Vitals: Last Vital Signs Temp 98.6 F 05/20/20 11:39 Pulse 77 05/20/20 11:39 Resp 16 05/20/20 11:39 BP 109/66 05/20/20 11:39 Pulse Ox 97 05/20/20 11:39 Discharge Plan Discharge Patient Disposition: Home Condition: Stable Prescriptions: Continued lansoprazole [Prevacid] 30 mg capsule,delayed release(DR/EC) 30 mg PO DAILY RF: 0 hydrochlorothiazide 25 mg tablet 25 mg PO DAILY Qty: 30 RF: 2 amlodipine 5 mg tablet 5 mg PO DAILY RF: 0 irbesartan 300 mg tablet 300 mg PO DAILY RF: 0 sofosbuvir-velpatasvir [Epclusa] 400-100 mg tablet 1 tab PO DAILY 84 Days Qty: 28 RF: 2 ibuprofen 200 mg Tablet 400 mg PO PRN RF: 0 Goody's Extra Strength 1 packet PO PRN RF: 0 Discharge Orders: Discharge Order (Routine); Ordered 05/20/20 Ordered By: Israel Jerome Referrals: Lonnie Yap MD [Physician] - 05/28/20 11:30 am (Tuesday, May, @ 1130 AM) Discharge Diet: Usual diet and Low Salt Discharge Activity: Resume usual activity Patient Instructions: Gastrointestinal Bleeding (DC), Seasoning Without Salt (DC), Esophageal Varices (DC) Discharge Date/Time: 05/20/20 16:26 Discharge Attestations Time Spent in Discharge Care*: greater than 30 min Specific Discharge Activities: Specific discharge activities: educating patient, discussing with case assistant/social workers/dc planners, documenting/other paperwork and evaluating patient/reviewing data Status at Discharge: Cognitive status at discharge: cognitively intact , Behavioral status at discharge: cooperative , Functional status at discharge: independent ambulation Quality Metrics Clinical Quality Measures During this hospital stay, did patient experience: None Coding Level of Care Code Acute Practice Administrator for Skylar Fwdennis Diagnoses Acute upper GI bleed K92.2 Hypokalemia E87.6 Alcohol abuse F10.10 Hypertension I10 Generalized anxiety disorder F41.1 Cannabis use disorder, severe, dependence F12.20 Hep C w/o coma, chronic B18.2 GIGI (acute kidney injury) N17.9 Hyponatremia E87.1
--- NOTE | 2020-05-22 13:16 | PC.RESP ---
Smoking Cessation information and a schedule of classes sent to patient.
== END 2020-05-20 16:26 | disposition home or self-care (01) | DRG 378 ==
LOC: ER 08:02 → MEDSURG 10:17
PROVIDERS: Family Medicine; Nurse Practitioner Family; Admitting Provider Internal Medicine; Visit Provider Internal Medicine
DX: K92.2 Gastrointestinal hemorrhage, unspecified (principal); N17.9 Acute kidney failure, unspecified; E87.1 Hypo-osmolality and hyponatremia; B18.2 Chronic viral hepatitis C; I10 Essential (primary) hypertension; F10.20 Alcohol dependence, uncomplicated; F12.20 Cannabis dependence, uncomplicated; F41.1 Generalized anxiety disorder; F17.210 Nicotine dependence, cigarettes, uncomplicated; E87.6 Hypokalemia
CPT/HCPCS: 12345; 36415; 71045; 74177; 80053; 81003; 83605; 83690; 85025; 85610; 85730; 86900; 93005; 96372; 96375; 99284; C9113; J2270; J2405; J2765; J3411; J3480; J7030; J7040; Q9967

== ENCOUNTER → 2020-05-23 08:54 | Outpatient (BNVA) | payer SELFPAY | PROVIDERS: Visit Provider Internal Medicine | DX: Z11.59 Encounter for screening for other viral diseases (principal) | CPT/HCPCS: 87635 ==

== ENCOUNTER 2020-05-26 08:48 | Day surgery (SDC) | payer OTHER, SELFPAY ==
[2020-05-23 17:46] VITALS: BMI 23.6
[2020-05-26] MEDS: sodium chloride 0.9% 1,000 ML 30 ML IV (09:00)
[2020-05-26 09:06] VITALS: BP 124/72; PULSE 83; RESP 18; TEMP 36.4; O2SAT 100
--- NOTE | 2020-05-26 09:13 | ANES.PREANE2 ---
Pre-Anesthetic Assessment Pre-Anesthetic Assessment: Height/Weight: Height 1.75 m Weight 72.575 kg Temp Pulse Resp BP Pulse Ox 97.6 F 83 18 124/72 100 05/26/20 09:06 05/26/20 09:06 05/26/20 09:06 05/26/20 09:06 05/26/20 09:06 Preop Diagnosis: abdominal pain Proposed Procedure: Operation Date: 05/26/20 09:30 Proposed Procedures p Colonoscopy 12798 Z12.11(Not Applicable) - Lonnie Yap MD Familial anesthetic complications: None Was Beta Vinod taken within 24 hours: N/A Last intake: Intake Last Liquid Date 05/25/20 Last Liquid Time 23:00 Last Solid Date 05/24/20 Last Solid Time 23:55 Social: Social History: Alcohol and Tobacco Exam: Pre-Anes Outpt Exam: alert, oriented x 3, clear to auscultation bilaterally and regular rate & rhythm Airway: Cervical ROM: WNL MP: 4 Dentition: Other (poor dentition) CV/HEM: CV/HEM: HTN (started antihypertensives in november - started a new set 2 months ago) Comments: ? porphyria - states he produces too many blood cells : Comments: Recen GIGI Hepatic: Hepatic: Hepatitis (C) Musc/skel: Musc/skel: Lower Back Pain Anesthetic Plan: ASA status: 3 Anesthesia: MAC Risk of > 500 ml blood loss (7ml/kg in children): No PFSH Anesthesia PFSH: Medical History (Updated 05/21/20 @ 00:01 by ) Acute upper GI bleed Alcohol use disorder, moderate, dependence Cannabis use disorder, severe, dependence Generalized anxiety disorder Hep C w/o coma, chronic Hypertension Social History Smoking and tobacco status: current every day smoker cigarettes Packs smoked per day: 0.5 Years cigarettes smoked: 45 Quit status (tobacco): has tried quititng Number of times tried to quit tobacco: 10 Second hand smoke exposure: No Smoking risk assessment/counseling performed?: No Current gender identity: Male Data Anesthesia Cardiac Studies: No Data to Display
[2020-05-26 10:28] LABS: Potassium 3.4 mmol/L (3.5-5.1)
[2020-05-26 11:50] VITALS: BP 111/73; PULSE 98; RESP 16; TEMP 36.6; O2SAT 95
--- NOTE | 2020-05-26 11:51 | ANE.PACU2 ---
Inpatient post-anesthesia follow up: Airway intact: Yes Vital signs: Temperature 97.9 F Pulse Rate 98 Respiratory Rate 16 Blood Pressure 111/73 Pulse Oximetry 95 Oxygen Delivery Me thod Room Air Oxygen Flow Rate Fraction of Inspir ed Oxygen Hydration adequate: Yes Nausea and vomiting: No Pain level: 1 Mental status: Baseline
[2020-05-26 12:00] VITALS: BP 135/81; PULSE 88; RESP 18; O2SAT 96
--- NOTE | 2020-06-12 12:41 | W.PM.OPSUD ---
Surgery/Procedure H&P Update DATE OF PROCEDURE: June 12, 2020 DATE H&P PERFORMED: 05/15/20 PREOP DIAGNOSIS: c PLANNED PROCEDURE: Operation Date: 05/26/20 09:30 Proposed Procedures p Colonoscopy 84069 Z12.11(Not Applicable) - Lonnie Yap MD
== END 2020-05-26 12:06 | disposition home or self-care (01) ==
PROVIDERS: Anesthesiology; Visit Provider Internal Medicine
PROC: 0DJD8ZZ Inspection of Lower Intestinal Tract, Via Natural or Artificial Opening Endoscopic (ICD-10-PCS; CPT 45378; principal; 2020-05-26 09:30)
DX: Z12.11 Encounter for screening for malignant neoplasm of colon (principal); I10 Essential (primary) hypertension; B18.2 Chronic viral hepatitis C; F17.210 Nicotine dependence, cigarettes, uncomplicated
CPT/HCPCS: 12345; 45378; 84132; J2704; J7030

== ENCOUNTER → 2020-06-09 14:09 | Outpatient (BNVA) | payer OTHER, SELFPAY | PROVIDERS: Visit Provider Internal Medicine | DX: B18.2 Chronic viral hepatitis C (principal) | CPT/HCPCS: 87522; 87902 ==

== ENCOUNTER 2021-01-05 10:42 | Emergency (ER) | payer OTHER, SELFPAY ==
[2021-01-05 10:48] VITALS: BP 127/90; PULSE 129; RESP 15; TEMP 36.7; O2SAT 100; BMI 24.3
--- NOTE | 2021-01-05 11:34 | CT_ITS ---
WS: [id number] CT ANGIOGRAPHY abdomen and pelvis HISTORY: bright red blood per rectum TECHNIQUE: CT angiogram is performed during IV injection. Reformation images reviewed. All CT scans a [facility] use at least one of these dose optimization techniques: automated exposure co ntrol; mA and/or kV adjustment per patient size (includes targeted exams where dose is matched to cli nical indication); or iterative reconstruction. CONTRAST: Omnipaque 350; 95 mL IV. DLP: 748.3 mGy.cm COMPARISON: 05/19/2020 Hyperexpanded lung bases from severe chronic emphysema. Heart size is normal. Small hiatal hernia. Liver is top normal size. No mass or bile duct dilatation. Gallbladder is slightly contracted. Spleen is normal size with calcifications. Normal pancreas and RIGHT adrenal gland. Stable nodules LEFT adr enal gland. Normal enhancement of each kidney. No mass or obstruction. No ascites or free air. No kishore nopathy. Abdominal aorta: Normal size aorta with mild atherosclerotic plaque. Origin of the celiac axis and SM A and QUANG are normal. There are no filling defects or significant stenoses. Renal arteries are normal caliber. No GI tract obstruction. Numerous diverticula in the descending and sigmoid colon. Mild inflammatory changes in a short segment of the proximal sigmoid colon with adjacent diverticula. Probably mild acu te diverticulitis. There are no blush-like areas of enhancement to suggest a focal bleeding site. No free fluid in the pelvis. Urinary bladder well distended. Advanced degenerative changes at L2-3. CT/CT angio abdomen pelvis [id number] IMPRESSION: 1. No focal site of bleeding or angiodysplasia identified. 2. Diverticulosis and a focal area of suspected minimal acute diverticulitis i n the proximal sigmoid colon. 3. Mild atherosclerosis abdominal aorta.
[2021-01-05 11:39] VITALS: BP 139/95; PULSE 116; RESP 15; O2SAT 100
[2021-01-05 12:01] LABS: Basophils % 0.5 %; Eosinophils # 0.1 10^3/uL (0.0-0.8); Hematocrit 31.1 % (42.0-52.0); Hemoglobin 10.4 g/dL (11.7-16.6); Lymphocytes % 53.3 %; Mean Corpuscular HGB Conc 33.4 g/dL (30.0-36.0); Mean Corpuscular Hemoglobin 32.5 pg (28.0-34.0); Mean Corpuscular Volume 97.2 fL (80-94); Mean Platelet Volume 9.7 fL (7.4-10.4); Monocytes # 0.4 10^3/uL (0.2-0.9); Monocytes % 6.6 %; Neutrophils # 2.08 10^3/uL (1.8-7.7); Neutrophils % 37.4 %; Nucleated Red Blood Cells % 0 %; Platelet Count 160 10^3/cmm (130-400); White Blood Count 5.6 10^3/uL (4.0-10.0)
[2021-01-05 12:08] LABS: INR 0.97 (0.8-1.2)
[2021-01-05 12:09] LABS: Partial Thromboplastin Time 26.5 SECONDS (23.9-36.7)
[2021-01-05 12:14] LABS: Lactic Sepsis W/Reflex 1.1 mmol/L (0.5-2.2)
[2021-01-05 12:16] LABS: Alanine Aminotransferase 11 U/L (0-41); Albumin Level 3.7 g/dL (3.5-5.2); Alkaline Phosphatase 47 IU/L (40-130); Anion Gap 11.7 (5-19); Aspartate Amino Transferase 16 U/L (0-40); Blood Urea Nitrogen 13 mg/dL (8-23); Calcium 8.1 mg/dL (8.5-10.5); Carbon Dioxide 24 mmol/L (22-29); Chloride 107 mmol/L (98-107); Globulin 2.6 g/dL (1.3-4.6); Glomerular Filtration Rate 67.8 mL/min (90-130); Glucose 135 mg/dL (65-115); Osmolality Calculated 290 mOsm/kg (285-295); Potassium 3.7 mmol/L (3.5-5.1); Sodium 139 mmol/L (136-145); Total Bilirubin 0.4 mg/dL (0.15-1.2); Total Protein 6.3 g/dL (6.6-8.7)
[2021-01-05] MEDS: iohexol 350 mg/mL 100 mL Btl IV (12:28)
--- NOTE | 2021-01-05 13:40 | ED_ITS ---
HPI - GI Bleed General: Chief complaint: GI Bleed Stated complaint: Dizzy, Bloody Stool Time Seen by Provider: 01/05/21 11:17 Source: patient Mode of arrival: ambulatory Limitations: no limitations History of Present Illness: HPI Narrative: 60-year-old male presents to the emergency department with complaints of bloody stools. Symptoms started yesterday and he started after he had a regular bowel movement. After that he had stools that were bloody, small in quantity but he says comes out with a lot of force. Today he has some associated dizziness but no syncopal events. He denies any chest pain or abdominal pain. No nausea or vomiting. Because the blood in the stool persisted till today he presents to the emergency department to be evaluated. complaint: gross hematochezia Onset (ago): day(s) (1) Pain Consistency: intermittent Severity: mild Relieving factors: none Exacerbating factors: bowel movement Context: liver disease Associated symptoms: Denies abdominal pain, chills, easy bruising, epistaxis, fever(s), headache(s), malaise, nausea, other bleeding, poor appetite, rash, syncope, vomiting or weakness Treatments Prior to Arrival: none Review of Systems General: Reports: 10 or more systems reviewed and unremarkable except in HPI and below Const: Denies: fever(s), chills or malaise ENMT: Denies: epistaxis Card: Denies: syncope GI: Denies: abdominal pain, nausea or vomiting Skin/Breast: Denies: rash Neuro: Denies: headache(s) Sean/Lymph: Denies: easy bruising PFS ED PFSH: Medical History Acute upper GI bleed Alcohol use disorder, moderate, dependence Cannabis use disorder, severe, dependence Generalized anxiety disorder Hep C w/o coma, chronic Hypertension Social History Smoking and tobacco status: current every day smoker cigarettes Packs smoked per day: 0.75 Years cigarettes smoked: 45 Quit status (tobacco): has tried quititng Number of times tried to quit tobacco: 10 Second hand smoke exposure: No Smoking risk assessment/counseling performed?: No History of recent travel: No Current gender identity: Male Physical Exam Const: COMMON NORMALS: no acute distress, average body habitus, patient oriented x3, no limitations, healthy appearing, alert and well nourished HENMT: COMMON NORMALS: normocephalic, atraumatic and moist oral mucous membranes HEAD & SCALP: normocephalic and atraumatic Neck/C-Spine: COMMON NORMALS: no meningeal signs and no JVD Resp: COMMON NORMALS: normal respiratory effort, No retractions, No use of accessory muscles, clear to auscultation bilaterally and percussion normal AUSCULTATION: clear to auscultation bilaterally PERCUSSION: percussion normal Cardio: COMMON NORMALS: no JVD, regular rate, regular rhythm, S1 normal heart sound present, S2 normal heart sound present, No gallops present (Cardio), No clicks present (Cardio), No murmurs present (Cardio), No rub (Cardio) and Peripheral pulses 2+ throughout RATE: regular rate RHYTHM: regular rhythm HEART SOUNDS: S1 normal heart sound present and S2 normal heart sound present PERIPHERAL PULSES: Peripheral pulses 2+ throughout GI: COMMON NORMALS: Normal to inspection, nondistended, normoactive bowel sounds present, Soft to palpation, non-tender, No hepatosplenomegaly present, no masses and no bruits PALPATION: Yes Soft to palpation and Yes No hepatosplenomegaly present RECTAL EXAM: Yes visual inspection normal, Yes normal sphincter tone, Yes prostate normal and Yes Abnormal stool present Abnormal stool details: blood-tinged stool Extremity: COMMON NORMALS: normal to inspection, full ROM, capillary refill normal, no calf tenderness and no pedal edema Neuro: COMMON NORMALS: patient oriented x3 SENSORIUM/ORIENTATION: Yes alert MENINGEAL SIGNS: Yes no meningeal signs Skin: COMMON NORMALS: no rashes or lesions noted, no wounds, turgor normal, no jaundice, no petechiae and no mottling GENERAL SKIN EXAM: no rashes or lesions noted and turgor normal Course Reevaluation(s): Reevaluation #1: Discussed his lab and imaging findings with him. Explained that he has mild early acute diverticulitis and we will treat him with IV antibiotic in the ER and discharge him home with a prescription for oral antibiotic. He is advised to return if his symptoms get worse. He voiced understanding and is in agreement with the plan. Time: 13:40 Vital Signs: Vital signs: Vital Signs Temperature 98.1 F 01/05/21 10:48 Pulse Rate 92 01/05/21 14:26 Respiratory Rate 15 01/05/21 14:26 Blood Pressure 130/90 01/05/21 14:26 Pulse Oximetry 100 01/05/21 14:26 MDM - GI Bleed MDM Narrative: Medical decision making narrative: 60-year-old male who presented to the emergency department with rectal bleeding. Evaluation in the emergency department is consistent with acute diverticulitis and he is discharged home with a prescription for ciprofloxacin and metronidazole. He was given a dose of intravenous Zosyn. He is to follow-up with his primary care provider or return for any concerns. Medical Records: Attestation: I reviewed the patient's medical records. Lab Data: Attestation: I reviewed the patient's lab results. Labs: Lab Results 01/05/21 01/05/21 01/05/21 Range/Units 11:36 11:36 11:36 WBC 5.6 (4.0-10.0) 10^3/ uL RBC 3.20 L (4.1-5.3) 10^6/u L Hgb 10.4 L (11.7-16.6) g/dL Hct 31.1 L (42.0-52.0) % MCV 97.2 H (80-94) fL MCH 32.5 (28.0-34.0) pg MCHC 33.4 (30.0-36.0) g/dL RDW 18.0 H (12.1-15.1) % Plt Count 160 (130-400) 10^3/c mm MPV 9.7 (7.4-10.4) fL Neut % (Auto) 37.4 % Lymph % (Auto) 53.3 % [place] % (Auto) 6.6 % Eos % (Auto) 2.0 % Baso % (Auto) 0.5 % Neut # (Auto) 2.08 (1.8-7.7) 10^3/u L Lymph # (Auto) 3.0 (0.8-4.8) 10^3/u L [place] # (Auto) 0.4 (0.2-0.9) 10^3/u L Eos # (Auto) 0.1 (0.0-0.8) 10^3/u L Baso # (Auto) 0.0 (0.0-0.1) 10^3/u L Nucleated RBC % (a uto) 0 % Nucleated RBCs # 0.0 /100WBC PT 13.20 (12.1-14.9) SECO NDS INR 0.97 (0.8-1.2) APTT 26.5 (23.9-36.7) SECO NDS Sodium 139 (136-145) mmol/L Potassium 3.7 (3.5-5.1) mmol/L Chloride 107 (98-107) mmol/L Carbon Dioxide 24 (22-29) mmol/L Anion Gap 11.7 (5-19) BUN 13 (8-23) mg/dL Creatinine 1.1 (0.7-1.2) mg/dL GFR Calculation 67.8 L (90-130) mL/min Glucose 135 H (65-115) mg/dL Calculated Osmolal ity 290 (285-295) mOsm/k g Lactic Acid (0.5-2.2) mmol/L Calcium 8.1 L (8.5-10.5) mg/dL Total Bilirubin 0.4 (0.15-1.2) mg/dL AST 16 (0-40) U/L ALT 11 (0-41) U/L Alkaline Phosphata se 47 (40-130) IU/L Total Protein 6.3 L (6.6-8.7) g/dL Albumin 3.7 (3.5-5.2) g/dL Globulin 2.6 (1.3-4.6) g/dL Blood Type Rho(D) Type Antibody Screen 01/05/21 01/05/21 Range/Units 11:36 11:36 WBC (4.0-10.0) 10^3/ uL RBC (4.1-5.3) 10^6/u L Hgb (11.7-16.6) g/dL Hct (42.0-52.0) % MCV (80-94) fL MCH (28.0-34.0) pg MCHC (30.0-36.0) g/dL RDW (12.1-15.1) % Plt Count (130-400) 10^3/c mm MPV (7.4-10.4) fL Neut % (Auto) % Lymph % (Auto) % [place] % (Auto) % Eos % (Auto) % Baso % (Auto) % Neut # (Auto) (1.8-7.7) 10^3/u L Lymph # (Auto) (0.8-4.8) 10^3/u L [place] # (Auto) (0.2-0.9) 10^3/u L Eos # (Auto) (0.0-0.8) 10^3/u L Baso # (Auto) (0.0-0.1) 10^3/u L Nucleated RBC % (a uto) % Nucleated RBCs # /100WBC PT (12.1-14.9) SECO NDS INR (0.8-1.2) APTT (23.9-36.7) SECO NDS Sodium (136-145) mmol/L Potassium (3.5-5.1) mmol/L Chloride (98-107) mmol/L Carbon Dioxide (22-29) mmol/L Anion Gap (5-19) BUN (8-23) mg/dL Creatinine (0.7-1.2) mg/dL GFR Calculation (90-130) mL/min Glucose (65-115) mg/dL Calculated Osmolal ity (285-295) mOsm/k g Lactic Acid 1.1 (0.5-2.2) mmol/L Calcium (8.5-10.5) mg/dL Total Bilirubin (0.15-1.2) mg/dL AST (0-40) U/L ALT (0-41) U/L Alkaline Phosphata se (40-130) IU/L Total Protein (6.6-8.7) g/dL Albumin (3.5-5.2) g/dL Globulin (1.3-4.6) g/dL Blood Type A Positive Rho(D) Type Positive / 4+ Antibody Screen Negative Imaging Data^: CT Abd/Pel: Attestation: I personally reviewed and interpreted this imaging study as follows: Radiologist's impression: [address] [id number] Scan ReportSigned Patient: Jack Dhaliwal AUnit #: [id number]: 9Acct#:[id number]/Sex: 60 / MADM Date: 01/05/21Loc: ERRoom/Bed:Attending Dr: Ordering Provider/Ordering MD: Jeanette Ruth MD, [facility] [place] Date of Service: 01/05/21 Procedure(s): CT angio abdomen pelvis 01833 Accession Number(s): [id number] Report Number: [id number] WS: [id number] CT ANGIOGRAPHY abdomen and pelvis HISTORY: bright red blood per rectum TECHNIQUE: CT angiogram is performed during IV injection. Reformation images reviewed. All CT scans at [facility] use at least one of these dose optimization techniques: automated exposure control; mA and/or kV adjustment per patient size (includes targeted exams where dose is matched to clinical indication); or iterative reconstruction. CONTRAST: Omnipaque 350; 95 mL IV. DLP: 748.3 mGy.cm COMPARISON: 05/19/2020 Hyperexpanded lung bases from severe chronic emphysema. Heart size is normal. Small hiatal hernia. Liver is top normal size. No mass or bile duct dilatation. Gallbladder is slightly contracted. Spleen is normal size with calcifications. Normal pancreas and RIGHT adrenal gland. Stable nodules LEFT adrenal gland. Normal enhancement of each kidney. No mass or obstruction. No ascites or free air. No adenopathy. Abdominal aorta: Normal size aorta with mild atherosclerotic plaque. Origin of the celiac axis and SMA and QUANG are normal. There are no filling defects or significant stenoses. Renal arteries are normal caliber. No GI tract obstruction. Numerous diverticula in the descending and sigmoid colon. Mild inflammatory changes in a short segment of the proximal sigmoid colon with adjacent diverticula. Probably mild acute diverticulitis. There are no blush-like areas of enhancement to suggest a focal bleeding site. No free fluid in the pelvis. Urinary bladder well distended. Advanced degenerative changes at L2-3. CT/CT angio abdomen pelvis 95190 IMPRESSION: 1. No focal site of bleeding or angiodysplasia identified. 2. Diverticulosis and a focal area of suspected minimal acute diverticulitis in the proximal sigmoid colon. 3. Mild atherosclerosis abdominal aorta. Dictated By:Gabriela Pete DOSigned By:Juan R,Gabriela A DOSigned Date/Time:01/05/21 1307DD/ 1255 Discharge Plan Discharge Patient Disposition: Home Clinical Impression: Acute diverticulitis, Acute lower gastrointestinal bleeding Condition: Stable Prescriptions: New metronidazole 500 mg tablet 500 mg PO Q8H 7 Days Qty: 21 RF: 0 ciprofloxacin HCl 500 mg tablet 500 mg PO BID Qty: 14 RF: 0 Continued Prevacid 1 tab PO DAILY PRN (Reason: unknown) RF: 0 Discontinued Goody's Extra Strength 1 packet PO PRN PRN (Reason: Pain) RF: 0 No Action ibuprofen 200 mg Tablet 400 mg PO PRN PRN (Reason: Pain) RF: 0 Discharge Orders: Discharge ED (Routine); Ordered 01/05/21 Ordered By: Jeanette Ruth Discharge Diet: As Directed Discharge Activity: Increase activity as tolerated Patient Instructions: Diverticulitis (ED), Diverticulitis Diet (ED) Activity Restrictions/Additional Instructions: Return for any new or worsening symptoms. Follow-up with your primary care provider within 3 days. Take the medications as prescribed. Coding Level of Care Code ED Hydrotechnical Specialist for Chg Fwd Exam Comprehensive
[2021-01-05] MEDS: piperacillin-tazobactam 3.375 GM in sodium chloride 0.9% (plus) 50 ML IV (13:52)
[2021-01-05 13:56] VITALS: BP 155/100; PULSE 100; RESP 15; O2SAT 99
[2021-01-05 14:26] VITALS: BP 130/90; PULSE 92; RESP 15; O2SAT 100
== END 2021-01-05 14:27 | disposition home or self-care (01) ==
PROVIDERS: Physician Assistant; Emergency Provider Family Medicine
DX: K57.92 Diverticulitis of intestine, part unspecified, without perforation or abscess without bleeding (principal); K92.2 Gastrointestinal hemorrhage, unspecified; Z86.19 Personal history of other infectious and parasitic diseases; I10 Essential (primary) hypertension; F17.210 Nicotine dependence, cigarettes, uncomplicated
CPT/HCPCS: 36415; 74174; 80053; 83605; 85025; 85610; 85730; 86850; 86900; 96365; 99283; J2543; Q9967

== ENCOUNTER → 2022-11-18 14:04 | Outpatient (BNVA) | payer OTHER, SELFPAY | PROVIDERS: Visit Provider Family Medicine | DX: K92.2 Gastrointestinal hemorrhage, unspecified (principal); K92.1 Melena; K21.9 Gastro-esophageal reflux disease without esophagitis; I10 Essential (primary) hypertension; K58.9 Irritable bowel syndrome, unspecified; F41.9 Anxiety disorder, unspecified; B18.2 Chronic viral hepatitis C; E80.20 Unspecified porphyria; F10.20 Alcohol dependence, uncomplicated; M54.50 Low back pain, unspecified; G89.29 Other chronic pain; F17.200 Nicotine dependence, unspecified, uncomplicated; Z71.6 Tobacco abuse counseling; Z71.41 Alcohol abuse counseling and surveillance of alcoholic | CPT/HCPCS: 80053; 80061; 82977; 85025; 87902 ==

== ENCOUNTER 2022-12-24 06:39 | Day surgery (SDC) | payer OTHER, SELFPAY ==
[2022-12-22 09:43] VITALS: BMI 20.5
[2022-12-24 07:06] VITALS: BP 140/88; PULSE 78; RESP 18; TEMP 36.1; O2SAT 100
[2022-12-24] MEDS: sodium chloride 0.9% 1,000 ML 30 ML IV (07:10)
--- NOTE | 2022-12-24 07:33 | ANES.PREANE2 ---
Pre-Anesthetic Assessment Height/Weight: Height 1.75 m Weight 63.049 kg Temp Pulse Resp BP Pulse Ox O2 Del Method 97 F L 78 18 140/88 100 Room Air 12/24/22 07:06 12/24/22 07:06 12/24/22 07:06 12/24/22 07:06 12/24/22 07:06 12/24/22 07:06 Preop Diagnosis: c Operation Date: 12/24/22 08:15 Proposed Procedures p 15206 EGD R10.9,K92.1(Not Applicable) - Juvenal Romero DO Familial anesthetic complications: none Was Beta Vinod taken within 24 hours: N/A Was Clonidine taken within 24 hours: N/A Last intake: Intake Last Liquid Date 12/23/22 Last Liquid Time 23:30 Last Solid Date 12/23/22 Last Solid Time 20:00 Social Alcohol and Tobacco Exam alert and oriented x 3 Airway Submandibular: within normal limits Cervical ROM: within normal limits Dentition: false Pulmonary None reported CV/HEM Hypertension None reported Hepatic Hepatitis (Hep C treated) GI Gastroesophageal Reflux Disease Metabolic None reported Musc/skel None reported Neuropsych None reported Anesthetic Plan ASA status: 3 Anesthesia: Anesthesia Evaluation and MAC Risk of > 500 ml blood loss (7ml/kg in children): No Medications/Allergies Home Medications Medication Instructions Recorded Confirmed Last Taken Type losartan 50 mg tablet 50 mg PO DAILY #30 tabs 11/18/22 12/22/22 12/22/22 Rx pantoprazole 40 mg tablet,delayed 40 mg PO BID 6 weeks #84 tabs 11/18/22 12/22/22 12/23/22 Rx release (Protonix) venlafaxine 37.5 mg 37.5 mg PO DAILY #30 caps 11/18/22 12/22/22 12/10/22 Rx capsule,extended release 24 hr (Effexor XR) amoxicillin 875 mg-potassium 1 tab PO BID 10 days #20 tabs 12/21/22 12/22/22 12/23/22 Rx clavulanate 125 mg tablet aspirin 520 mg-acetaminophen 260 1 packet PO QID PRN Pain 12/24/22 12/24/22 12/23/22 History mg-caffeine 32.5 mg oral powder pack (Goody's Extra Strength) Allergies Allergy/AdvReac Type Severity Reaction Status Date / Time No Known Allergies Allergy Verified 12/22/22 09:40 Current Medications Generic Name Dose Route Start Last Admin Trade Name Tejasq PRN Reason Stop Dose Admin Sodium Chloride 1,000 mls @ 30 mls/hr 12/24/22 06:45 12/24/22 07:10 Sodium Chloride 0.9% IV 12/25/22 06:44 30 mls/hr .Q24H ANG Administration PFSH Anesthesia Medical History Acute upper GI bleed Alcohol use disorder, moderate, dependence Cannabis use disorder, severe, dependence Generalized anxiety disorder Hep C w/o coma, chronic Hypertension Surgical History History of esophagogastroduodenoscopy (EGD) 2014 [place] History of tonsillectomy and adenoidectomy Hx of colonoscopy with polypectomy 2 yrs ago Family History Mother Cancer brain tumor Other Diabetes Hypertension Lung disease Psychiatric illness Denies family history of CAD (coronary artery disease) Clotting disorder Dementia Hyperlipidemia Chronic kidney disease (CKD) Anesthesia complication Bleeding disorder Stroke Social History Smoking and tobacco status: current every day smoker cigarettes Packs smoked per day: 0.75 Years cigarettes smoked: 45 [ Other cigarette details: 3/4 PPD, 40PY] Quit status (tobacco): has tried quititng Number of times tried to quit tobacco: 10 Second hand smoke exposure: No Smoking risk assessment/counseling performed?: No Alcohol intake: current Alcohol intake frequency: holidays/special occasions only Caregiver/support person: No Lives independently: Yes Marital status: Single Number of children: 0 service: Yes status: Medically Discharged/Retired Current occupational status: retired Current gender identity: Male Special vidya needs: No Agree to transfusion: Yes Data Anesthesia Cardiac Studies: No Data to Display
--- NOTE | 2022-12-24 07:57 | W.PM.OPSUD ---
Surgery/Procedure H&P Update DATE OF PROCEDURE: December 24, 2022 DATE H&P PERFORMED: 12/21/22 H&P UPDATE INFORMATION: I have reviewed H&P completed within last 30 days, I have examined patient prior to procedure and No changes to prior documentation PREOP DIAGNOSIS: c PLANNED PROCEDURE: Operation Date: 12/24/22 08:15 Proposed Procedures p 86309 EGD R10.9,K92.1(Not Applicable) - Juvenal Romero DO
[2022-12-24 08:37] VITALS: BP 120/75; PULSE 81; RESP 18; TEMP 36.4; O2SAT 99
--- NOTE | 2022-12-24 08:51 | ANE.PACU2 ---
Inpatient post-anesthesia follow up: Airway intact: Yes Vital signs: Temperature 97.6 F Pulse Rate 81 Respiratory Rate 18 Blood Pressure 120/75 Pulse Oximetry 99 Oxygen Delivery Me thod Room Air Oxygen Flow Rate Fraction of Inspir ed Oxygen Hydration adequate: Yes Nausea and vomiting: No Pain level: 1 Mental status: Baseline
[2022-12-24 08:52] VITALS: BP 136/81; PULSE 85; RESP 18; O2SAT 100
== END 2022-12-24 09:25 | disposition home or self-care (01) ==
PROVIDERS: PCP Family Medicine; Visit Provider Surgery
PROC: 0DJ08ZZ Inspection of Upper Intestinal Tract, Via Natural or Artificial Opening Endoscopic (ICD-10-PCS; CPT 43235; principal; 2022-12-24 08:15)
DX: K92.1 Melena (principal); R10.9 Unspecified abdominal pain; I85.00 Esophageal varices without bleeding; I10 Essential (primary) hypertension; K21.9 Gastro-esophageal reflux disease without esophagitis; Z86.19 Personal history of other infectious and parasitic diseases; Z79.82 Long term (current) use of aspirin
CPT/HCPCS: 43239; 45385; 88305; J2704; J7030

== ENCOUNTER → 2022-12-29 10:15 | Outpatient (BNVA) | payer OTHER, SELFPAY | PROVIDERS: PCP Family Medicine; Visit Provider Family Medicine | DX: D50.9 Iron deficiency anemia, unspecified (principal); Z72.51 High risk heterosexual behavior; D72.819 Decreased white blood cell count, unspecified | CPT/HCPCS: 82746; 83540; 83550; 85025; 87806 ==

== ENCOUNTER 2023-01-10 06:40 | Outpatient (CLI) | payer OTHER, SELFPAY ==
--- NOTE | 2023-01-10 06:30 | US_ITS ---
WS: [id number] RIGHT UPPER QUADRANT ULTRASOUND HISTORY: abd pain COMPARISON: None available. Liver: 14.5 cm in length. Normal size liver and echogenicity. No bile duct dilatation or mass. Portal Vein: Normal hepatopetal flow with monophasic waveform. Gallbladder: Normally distended gallbladder with no stones or wall thickening. CBD: 0.4 cm Pancreas: Limited visualization of the pancreas. No abnormality identified. Right kidney: 10.1 cm in length. Normal size and echogenicity. No hydronephrosis or mass. Aorta and IVC: Mild atherosclerosis aorta with no aneurysm. No ascites. US/US gall bladder 82915 IMPRESSION: 1. Normal gallbladder. 2. No biliary duct dilatation. 3. Mild atherosclerosis aorta.
== END 2023-01-10 06:41 | disposition home or self-care (01) ==
LOC: RAD 06:42
PROVIDERS: PCP Family Medicine; Visit Provider Surgery
DX: R10.9 Unspecified abdominal pain (principal)
CPT/HCPCS: 76705

== ENCOUNTER 2023-02-15 15:00 | Oncology outpatient (recurring) (ONCR) | payer OTHER, SELFPAY | END 2023-03-11 23:59 | disposition home or self-care (01) | LOC: ONCMED 15:01 | PROVIDERS: PCP Family Medicine; Visit Provider Internal Medicine Medical Oncology | DX: Z53.9 Procedure and treatment not carried out, unspecified reason (principal) ==

== ENCOUNTER 2023-02-18 13:05 | Emergency (ER) | payer OTHER, MEDICAID, SELFPAY ==
[2023-02-18 13:36] VITALS: BP 204/101; PULSE 82; RESP 16; TEMP 36.9; O2SAT 100; BMI 19.3
--- NOTE | 2023-02-18 13:48 | ED.C_ITS ---
HPI - Psych General: Chief Complaint: Psychiatric Symptoms Stated Complaint: anxiety Time Seen by Provider: 02/18/23 13:44 History of Present Illness: Patient is a 62-year-old male comes to the ED with anxiety. Patient has a history of anxiety and says he was recently taken off his Xanax prescription little over 2 weeks ago. He went and saw his PCP Dr. Nettles 2 days ago on February 16, 2023 and his PCP did not want to prescribe him Xanax for anxiety. Patient does have an appointment with [facility] [place] in 2 months for further evaluation of anxiety. Today he is having increased anxiety but denies any panic attack symptoms or any chest pain. Denies any HI, SI, auditory visual hallucinations. Associated symptoms: Deny auditory hallucinations, visual hallucinations, homicidal ideation or suicidal ideation Review of Systems Const: Denies: fever(s), chills or fatigue Eyes: Denies: change in vision or eye discomfort ENMT: Denies: throat pain, odynophagia, nasal discharge or nasal congestion Card: Denies: chest pain, palpitations, edema, swelling of feet/ankles, dyspnea on exertion or orthopnea Resp: Denies: dyspnea, productive cough or non-productive cough GI: Denies: abdominal pain, nausea, vomiting, diarrhea, constipation or hematochezia : Denies: flank pain, difficulty urinating, dysuria or hematuria Musc: Denies: neck pain, back pain or extremity swelling Skin/Breast: Denies: rash or new lesions Neuro: Denies: headache(s), numbness in extremities or weakness in extremities Psych: Reports: anxiety; Denies: visual hallucinations, auditory hallucinations, suicidal ideation or homicidal ideation [facility] ED PFSH: Medical History Acute upper GI bleed Alcohol use disorder, moderate, dependence Cannabis use disorder, severe, dependence Generalized anxiety disorder Hep C w/o coma, chronic Hypertension Surgical History History of esophagogastroduodenoscopy (EGD) 2014 [place] History of tonsillectomy and adenoidectomy Hx of colonoscopy with polypectomy 2 yrs ago Family History Mother Cancer brain tumor Other Diabetes Hypertension Lung disease Psychiatric illness Denies family history of CAD (coronary artery disease) Clotting disorder Dementia Hyperlipidemia Chronic kidney disease (CKD) Anesthesia complication Bleeding disorder Stroke Social History Smoking and tobacco status: current every day smoker cigarettes Packs smoked per day: 0.75 Years cigarettes smoked: 45 [ Other cigarette details: 3/4 PPD, 40PY] Quit status (tobacco): has tried quititng Number of times tried to quit tobacco: 10 Second hand smoke exposure: No Smoking risk assessment/counseling performed?: No Alcohol intake: former Substance/Drug Use: current Substance/Drug use frequency: daily Other substance/drug use details: Medical card Caregiver/support person: No Lives independently: Yes Marital status: Single Number of children: 0 service: Yes status: Medically Discharged/Retired Current occupational status: retired Current gender identity: Male Special vidya needs: No Agree to transfusion: Yes Physical Exam Const: COMMON NORMALS: patient oriented x3 HENMT: COMMON NORMALS: normocephalic HEAD & SCALP: normocephalic MOUTH: Normal oral and palatal mucosa present THROAT: posterior oropharynx normal and uvula midline Neck/C-Spine: COMMON NORMALS: supple GENERAL: Yes normal visual inspection Resp: COMMON NORMALS: normal respiratory effort, No retractions, No use of accessory muscles and clear to auscultation bilaterally AUSCULTATION: clear to auscultation bilaterally Cardio: COMMON NORMALS: regular rate, regular rhythm, S1 normal heart sound present, S2 normal heart sound present, No gallops present (Cardio), No clicks present (Cardio), No murmurs present (Cardio) and Peripheral pulses 2+ throughout RATE: regular rate RHYTHM: regular rhythm HEART SOUNDS: S1 normal heart sound present and S2 normal heart sound present PERIPHERAL PULSES: Peripheral pulses 2+ throughout GI: COMMON NORMALS: Normal to inspection, nondistended, normoactive bowel sounds present, Soft to palpation, non-tender and no masses PALPATION: Yes Soft to palpation : COMMON NORMALS: Yes no CVA tenderness BLADDER/KIDNEY EXAM: Yes no CVA tenderness Back/Pelvis: COMMON NORMALS: no CVA tenderness Extremity: COMMON NORMALS: normal to inspection Neuro: COMMON NORMALS: patient oriented x3 GAIT: Yes Normal gait present Skin: GENERAL SKIN EXAM: dry skin Course Vital Signs: Vital signs: Vital Signs Temperature 98.5 F 02/18/23 13:36 Pulse Rate 82 02/18/23 13:36 Respiratory Rate 16 02/18/23 13:36 Blood Pressure 204/101 02/18/23 13:36 Pulse Oximetry 100 02/18/23 13:36 Oxygen Delivery Me thod Room Air 02/18/23 13:36 [facility] - Psych Medical Decision Making Patient is a 62-year-old male comes to the ED with anxiety. Patient has a history of anxiety and says he was recently taken off his Xanax prescription little over 2 weeks ago. He went and saw his PCP Dr. Nettles 2 days ago on February 16, 2023 and his PCP did not want to prescribe him Xanax for anxiety. Patient does have an appointment with [facility] [place] in 2 months for further evaluation of anxiety. Today he is having increased anxiety but denies any panic attack symptoms or any chest pain. Denies any HI, SI, auditory visual hallucinations. Vitals are stable. Patient appears nontoxic in no acute distress or pain. He was diagnosed with anxiety and was discharged home with a prescription for Vistaril. Told to follow-up with his PCP and [facility] [place] at his next scheduled appointment. Return to ED precautions given. Patient understood agree with plan. Discharge Plan Discharge Patient Disposition: Home Clinical Impression: Anxiety Condition: Stable Prescriptions: New hydroxyzine pamoate 50 mg capsule 50 mg PO Q8H PRN (Reason: acute anxiety) Qty: 30 0RF No Action losartan 50 mg tablet 50 mg PO DAILY Qty: 90 0RF lansoprazole [Prevacid 24Hr] 15 mg capsule,delayed release(DR/EC) 15 mg PO DAILY PRN ibuprofen 200 mg capsule 200 mg PO Q6H PRN Goody's Extra Strength 520-260-32.5 mg Powder In Packet 1 packet PO QID PRN (Reason: Pain) Discharge Orders: Discharge ED (Routine); Ordered 02/18/23 Ordered By: Hema Dawson Referrals: Lc Nettles MD [Primary Care Provider] - Discharge Diet: Regular Discharge Activity: Increase activity as tolerated Patient Instructions: Anxiety (ED) Activity Restrictions/Additional Instructions: Follow-up with medical provider as directed in the next 5 to 7 days for reevaluation. Take medications as prescribed. Return to the ER or your medical provider if condition worsens. Please read and understand discharge instructions. Thank you for choosing [facility] for your healthcare needs today. Please realize this is an emergency room and that we are providing you with a medical screening exam and this may not be complete and all inclusive of all the testing and or work up that you may need to determine your ailment or severity of your illness. It is very important that you follow up as instructed or that you return to the Emergency Department should you have concerns or if your condition changes or worsens in any way. Coding Level of Care Code ED Seed Laboratory Technician for Skylar Craig
== END 2023-02-18 14:25 | disposition home or self-care (01) ==
PROVIDERS: Emergency Provider Physician Assistant; PCP Family Medicine
DX: F41.9 Anxiety disorder, unspecified (principal)
CPT/HCPCS: 99283

== ENCOUNTER 2023-02-20 11:46 | Emergency (ER) | payer OTHER, MEDICAID, SELFPAY ==
[2023-02-20 11:56] VITALS: BP 203/113; PULSE 83; RESP 18; TEMP 37.1; O2SAT 100; BMI 19.8
--- NOTE | 2023-02-20 12:00 | ECG_ITS ---
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 Measurements Intervals [place] Rate: 78 P: 70 SD: 169 QRS: 7 QRSD: 90 T: 36 QT: 353 QTc: 403 Interpretive Statements SINUS RHYTHM WITH SINUS ARRHYTHMIA LOW QRS VOLTAGE IN EXTREMITY LEADS [QRS DEFLECTION < 0.5 mV IN LIMB LEADS] Compared to ECG 05/19/2020 13:26:51 Low QRS voltage now present Sinus tachycardia no longer present Electronically Signed On 02-21-2023 11:09:24 CDT by Clare Loza M.D. [id number]
--- NOTE | 2023-02-20 12:04 | ED_ITS ---
HPI - Anxiety General: Chief Complaint: Anxiety Stated Complaint: High Blood Pressure, Head Pain Time Seen by Provider: 02/20/23 11:56 History of Present Illness: Patient presents to the ER with complaints of elevated blood pressure headache and anxiety. Patient says his blood pressure normally runs about 150 and currently today it is 200. Patient states his headache is more of a tension headache that goes up his neck wraps around the back of his head. Patient also has severe anxiety. Patient has not taking his losartan today. MD complaint: anxiety History of similar episodes: Yes Provoking factors: none known Relieving factors: nothing Exacerbating factors: nothing Review of Systems General: Reports: 10 or more systems reviewed and unremarkable except in HPI and below PFSH ED PFSH: Medical History Acute upper GI bleed Alcohol use disorder, moderate, dependence Cannabis use disorder, severe, dependence Generalized anxiety disorder Hep C w/o coma, chronic Hypertension Surgical History History of esophagogastroduodenoscopy (EGD) 2014 [place] History of tonsillectomy and adenoidectomy Hx of colonoscopy with polypectomy 2 yrs ago Family History Mother Cancer brain tumor Other Diabetes Hypertension Lung disease Psychiatric illness Denies family history of CAD (coronary artery disease) Clotting disorder Dementia Hyperlipidemia Chronic kidney disease (CKD) Anesthesia complication Bleeding disorder Stroke Social History Smoking and tobacco status: current every day smoker cigarettes Packs smoked per day: 0.75 Years cigarettes smoked: 45 [ Other cigarette details: 3/4 PPD, 40PY] Quit status (tobacco): has tried quititng Number of times tried to quit tobacco: 10 Second hand smoke exposure: No Smoking risk assessment/counseling performed?: No Alcohol intake: former Substance/Drug Use: current Substance/Drug use frequency: daily Other substance/drug use details: Medical card Caregiver/support person: No Lives independently: Yes Marital status: Single Number of children: 0 service: Yes status: Medically Discharged/Retired Current occupational status: retired Current gender identity: Male Special vidya needs: No Agree to transfusion: Yes Physical Exam Const: COMMON NORMALS: no acute distress, average body habitus, patient oriented x3, no limitations, healthy appearing, alert and well nourished HENMT: COMMON NORMALS: normocephalic, atraumatic, hearing grossly normal bilaterally, external ears normal, Normal external nose present and moist oral mucous membranes HEAD & SCALP: normocephalic and atraumatic NOSE: Normal external nose present EXTERNAL EAR: Yes external ears normal Eye: COMMON NORMALS: Equal, round and reactive pupils present, EOMs intact bilaterally, conjunctivae normal and no scleral icterus CONJUNCTIVA: Yes conjunctivae normal PUPIL: Yes Equal, round and reactive pupils present Neck/C-Spine: COMMON NORMALS: full ROM, no lymphadenopathy, supple, no men ingeal signs, no JVD and Thyroid normal THYROID: Thyroid normal Chest: COMMONS NORMALS: normal inspection of the chest and normal palpation of entire chest wall Resp: COMMON NORMALS: normal respiratory effort, No retractions, No use of accessory muscles and clear to auscultation bilaterally AUSCULTATION: clear to auscultation bilaterally Cardio: COMMON NORMALS: no JVD, regular rate, regular rhythm, S1 normal heart sound present, S2 normal heart sound present, No gallops present (Cardio), No clicks present (Cardio) and No murmurs present (Cardio) RATE: regular rate RHYTHM: regular rhythm HEART SOUNDS: S1 normal heart sound present and S2 normal heart sound present GI: COMMON NORMALS: Normal to inspection, nondistended, normoactive bowel benitez nds present, Soft to palpation, non-tender, No hepatosplenomegaly present and no masses PALPATION: Yes Soft to palpation and Yes No hepatosplenomegaly present : COMMON NORMALS: Yes no CVA tenderness BLADDER/KIDNEY EXAM: Yes no CVA tenderness Back/Pelvis: COMMON NORMALS: no CVA tenderness Neuro: COMMON NORMALS: patient oriented x3 SENSORIUM/ORIENTATION: Yes alert MENINGEAL SIGNS: Yes no meningeal signs Course Vital Signs: Vital signs: Vital Signs Temperature 98.7 F 02/20/23 11:56 Pulse Rate 75 02/20/23 12:34 Respiratory Rate 18 02/20/23 11:56 Blood Pressure 176/111 02/20/23 12:34 Pulse Oximetry 100 02/20/23 12:34 Oxygen Delivery Me thod Room Air 02/20/23 12:34 MDM - Anxiety Medical Decision Making Patient presents the ER with complaints of elevated blood pressure headache and anxiety issues. Patient was given 0.2 mg clonidine after he refused hydralazine and blood pressure improved to 135/100. Patient will be discharged home instructed to take his medicine as directed. And to follow-up with his PCP in approximately 1 week for further evaluation and treatment Differential Diagnosis Likely acute anxiety; Unlikely hyperventilation or panic disorder Medical Records I reviewed the patient's medical records. Lab Data I reviewed the patient's lab results. 02/20/23 12:05 02/20/23 12:05 Laboratory Results WBC 3.7 10^3/uL (4.0-10.0) L 02/20/23 12:05 RBC 4.27 10^6/uL (4.1-5.3) 02/20/23 12:05 Hgb 11.1 g/dL (11.7-16.6) L 02/20/23 12:05 Hct 35.7 % (42.0-52.0) L 02/20/23 12:05 MCV 83.6 fl (80-94) 02/20/23 12:05 MCH 26.0 pg (28.0-34.0) L 02/20/23 12:05 MCHC 31.1 g/dL (30.0-36.0) 02/20/23 12:05 RDW 21.8 % (12.1-15.1) H 02/20/23 12:05 Plt Count 190 10^3/cmm (130-400) 02/20/23 12:05 MPV 9.4 fL (7.4-10.4) 02/20/23 12:05 Neut % (Auto) 35.5 % 02/20/23 12:05 Lymph % (Auto) 49.0 % 02/20/23 12:05 [place] % (Auto) 8.4 % 02/20/23 12:05 Eos % (Auto) 6.0 % 02/20/23 12:05 Baso % (Auto) 1.1 % 02/20/23 12:05 Neut # (Auto) 1.30 10^3/uL (1.8-7.7) L 02/20/23 12:05 Lymph # (Auto) 1.8 10^3/uL (0.8-4.8) 02/20/23 12:05 [place] # (Auto) 0.3 10^3/uL (0.2-0.9) 02/20/23 12:05 Eos # (Auto) 0.2 10^3/uL (0.0-0.8) 02/20/23 12:05 Baso # (Auto) 0.0 10^3/uL (0.0-0.1) 02/20/23 12:05 Nucleated RBC % (auto) 0 % 02/20/23 12:05 Nucleated RBCs # 0.0 /100WBC 02/20/23 12:05 Sodium 141 mmol/L (136-145) 02/20/23 12:05 Potassium 3.5 mmol/L (3.5-5.1) 02/20/23 12:05 Chloride 108 mmol/L (98-107) H 02/20/23 12:05 Carbon Dioxide 23 mmol/L (22-29) 02/20/23 12:05 Anion Gap 13.5 (5-19) 02/20/23 12:05 BUN 8 mg/dL (8-23) 02/20/23 12:05 Creatinine 1.0 mg/dL (0.7-1.2) 02/20/23 12:05 GFR Calculation 75.2 mL/min (90-130) L 02/20/23 12:05 Glucose 112 mg/dL (65-115) 02/20/23 12:05 Calculated Osmolality 291 mOsm/kg (285-295) 02/20/23 12:05 Calcium 9.0 mg/dL (8.5-10.5) 02/20/23 12:05 Total Bilirubin 0.4 mg/dL (0.15-1.2) 02/20/23 12:05 AST 37 U/L (0-40) 02/20/23 12:05 ALT 23 U/L (0-41) 02/20/23 12:05 Alkaline Phosphatase 92 U/L (40-130) 02/20/23 12:05 Total Protein 6.9 g/dL (6.6-8.7) 02/20/23 12:05 Albumin 3.8 g/dL (3.5-5.2) 02/20/23 12:05 Globulin 3.1 g/dL (1.3-4.6) 02/20/23 12:05 EKG Data EKG 1: I personally reviewed and interpreted this EKG as follows: EKG interpretation date: 02/20/23 EKG interpretation time: 12:00 Prior EKG tracings: not available for review Interpretation: EKG showed ventricular rate 70 beats a minute, MD interval 169, QRS duration 90, QTc of 386, sinus rhythm with sinus arrhythmia, no ST-T wave changes Discharge Plan Discharge Patient Disposition: Home Clinical Impression: Anxiety Hypertension Qualifiers: Hypertension type: primary hypertension Qualified Code(s): I10 - Essential (primary) hypertension Condition: Stable Prescriptions: No Action lansoprazole [Prevacid 24Hr] 15 mg capsule,delayed release(DR/EC) 15 mg PO BEDTIME Goody's Extra Strength 520-260-32.5 mg Powder In Packet 1 packet PO DAILY PRN (Reason: Pain) hydroxyzine pamoate 50 mg capsule 50 mg PO Q8H PRN (Reason: acute anxiety) Qty: 30 0RF pantoprazole 40 mg tablet,delayed release (DR/EC) 40 mg PO QAM ibuprofen 200 mg Tablet 600 mg PO Q6H PRN (Reason: Pain) losartan 50 mg tablet 50 mg PO QPM Discharge Orders: Discharge ED (Routine); Ordered 02/20/23 Ordered By: Ruperto Obando Referrals: Lc Nettles MD [Primary Care Provider] - 1 week Patient Instructions: Hypertension, Anxiety (ED) Activity Restrictions/Additional Instructions: Please take your medicine as directed. Please follow-up with primary care in approximately 7 to 10 days for further evaluation and treatment as needed. Please keep a blood pressure log and take it to your primary care appointment. Coding Level of Care Code ED Community Representative for Chg Rafa
[2023-02-20 12:15] LABS: Basophils % 1.1 %; Eosinophils # 0.2 10^3/uL (0.0-0.8); Hematocrit 35.7 % (42.0-52.0); Hemoglobin 11.1 g/dL (11.7-16.6); Lymphocytes # 1.8 10^3/uL (0.8-4.8); Mean Corpuscular HGB Conc 31.1 g/dL (30.0-36.0); Mean Corpuscular Volume 83.6 fl (80-94); Mean Platelet Volume 9.4 fL (7.4-10.4); Monocytes # 0.3 10^3/uL (0.2-0.9); Monocytes % 8.4 %; Neutrophils % 35.5 %; Nucleated Red Blood Cells % 0 %; Platelet Count 190 10^3/cmm (130-400); Red Blood Count 4.27 10^6/uL (4.1-5.3); Red Cell Distribution Width 21.8 % (12.1-15.1); White Blood Count 3.7 10^3/uL (4.0-10.0)
[2023-02-20 12:30] VITALS: BP 203/113
[2023-02-20] MEDS: cloNIDine 0.1 mg Tablet 0.2 MG PO (12:30)
[2023-02-20 12:31] LABS: Alanine Aminotransferase 23 U/L (0-41); Albumin Level 3.8 g/dL (3.5-5.2); Alkaline Phosphatase 92 U/L (40-130); Anion Gap 13.5 (5-19); Aspartate Amino Transferase 37 U/L (0-40); Blood Urea Nitrogen 8 mg/dL (8-23); Carbon Dioxide 23 mmol/L (22-29); Chloride 108 mmol/L (98-107); Globulin 3.1 g/dL (1.3-4.6); Glomerular Filtration Rate 75.2 mL/min (90-130); Glucose 112 mg/dL (65-115); Osmolality Calculated 291 mOsm/kg (285-295); Potassium 3.5 mmol/L (3.5-5.1); Sodium 141 mmol/L (136-145); Total Bilirubin 0.4 mg/dL (0.15-1.2); Total Protein 6.9 g/dL (6.6-8.7)
[2023-02-20 12:34] VITALS: BP 176/111; PULSE 75; O2SAT 100
--- NOTE | 2023-02-20 13:43 | PC.PHAR ---
pt states he is not taking iron 325mg every other day rx filled 01/03/23 30d/s-ot states he is out of xanax 0.5mg bid prn ax filled 01/21/23 15d/s-pt states he is not taking hydroxyzine pamoate 50mg q8h prn pt states he doesnt like the way it made him feel
[2023-02-20 13:47] VITALS: BP 158/98; PULSE 74; RESP 18; O2SAT 100
== END 2023-02-20 13:48 | disposition home or self-care (01) ==
PROVIDERS: Emergency Provider Emergency Medicine; PCP Family Medicine
DX: F41.9 Anxiety disorder, unspecified (principal); I10 Essential (primary) hypertension; F17.210 Nicotine dependence, cigarettes, uncomplicated
CPT/HCPCS: 80053; 85025; 93005; 99284

== ENCOUNTER → 2023-05-11 11:03 | Outpatient (BNVA) | payer OTHER, SELFPAY | PROVIDERS: PCP Family Medicine; Visit Provider Anesthesiology Pain Medicine | DX: M47.896 Other spondylosis, lumbar region (principal); M54.16 Radiculopathy, lumbar region; M47.892 Other spondylosis, cervical region | CPT/HCPCS: 72050; 72110 ==

== ENCOUNTER → 2023-06-24 13:18 | Outpatient (BNVA) | payer OTHER, SELFPAY | PROVIDERS: PCP Family Medicine; Visit Provider Family Medicine | DX: D50.9 Iron deficiency anemia, unspecified (principal); E80.20 Unspecified porphyria; I10 Essential (primary) hypertension; F41.9 Anxiety disorder, unspecified; G62.9 Polyneuropathy, unspecified; D64.9 Anemia, unspecified | CPT/HCPCS: 80053; 82607; 82728; 83540; 83880; 84443; 85025 ==

== ENCOUNTER 2023-08-15 08:17 | Observation (INO) | payer OTHER, MEDICAID, SELFPAY ==
[2023-08-15] VITALS (12 sets, daily range): BP systolic 130–195; BP diastolic 77–110; PULSE 77–111; RESP 16–27; TEMP 36.9; O2SAT 96–100; BMI 22.1; BMI 21.4
--- NOTE | 2023-08-15 08:54 | ED_ITS ---
HPI - Anxiety 2 General: Chief Complaint: ER Hold Stated Complaint: anxiety Time Seen by Provider: 08/15/23 08:24 Source: patient Mode of arrival: ambulatory History of Present Illness: 62-year-old male presents emergency comp laining of generalized body aches abdominal pain. He states he has had these issues for 35 years worse the last 3 days. He states that he has irritable bowel syndrome and porphyria. He states no one knows how to treat it he has seen several doctors in the past. He describes the periphery as too many red blood cells. When I differentiated polycythemia versus porphyria patient corrected me. He has no specific complaint at this time other than stating is dehydrated and generally aching all over he is hyperventilating. He complains of abdominal pain back pain extremity pain and chest pain. Reviewing his past medical history he has a history of hepatitis C alcohol abuse and cannabis abuse. He has had upper GI bleeds in the past. Periphery is listed in his past medical history but there is no mention of it and notes that I could see MD complaint: anxiety Associated symptoms: Deny chest pain, chills or fever(s) Review of Systems 2 Const: Denies: fever(s) or chills Card: Denies: chest pain Resp: Denies: dyspnea GI: Denies: abdominal pain : Denies: dysuria, urinary frequency or urinary urgency Musc: Denies: neck pain or back pain Skin/Breast: Denies: rash PFSH ED 2 PFSH: Medical History (Updated 08/21/23 @ 17:53 by Ronny Gay DO) Chronic kidney disease Alcohol use disorder in remission as of 12/2022 History of GI bleed 11/2022, upper Neuropathy Lumbar disc disease with radiculopathy Chronic neck and back pain Cannabis use disorder Generalized anxiety disorder Psychiatric care Esophageal varices Tobacco use disorder, moderate, dependence Chronic lower back pain Porphyria details of diagnosis unknown IBS (irritable bowel syndrome) Hypertension Hep C w/o coma, chronic history of treatment Surgical History (Updated 08/15/23 @ 12:39 by Sho Zelaya MD) Hx of colonoscopy with polypectomy 2020, 12/2022 at [facility] no abnormalities seen History of esophagogastroduodenoscopy (EGD) 2014, 12/2022 at [facility] upper esophageal varices without active bleeding seen History of tonsillectomy and adenoidectomy Family History Mother Cancer brain tumor Diabetes Sister Diabetes Other Hypertension Lung disease Psychiatric illness Denies family history of CAD (coronary artery disease) Clotting disorder Dementia Hyperlipidemia Chronic kidney disease (CKD) Anesthesia complication Bleeding disorder Stroke Social History Smoking and tobacco/nicotine status: current every day tobacco/nicotine user cigarettes Packs smoked per day: 0.75 Years cigarettes smoked: 45 [ Other cigarette details: / PPD, 40PY] Quit status (tobacco/nicotine): has tried quititng Number of times tried to quit tobacco: 10 Second hand smoke exposure: No Alcohol intake: former Former alcohol use details: December 2022 Substance/Drug Use: current Substance/Drug use frequency: daily Other substance/drug use details: Medical card Caregiver/support person: No Lives independently: Yes Household members: none Marital status: Single Number of children: 0 service: Yes status: Medically Discharged/Retired Current occupational status: retired Current gender identity: Male Special vidya needs: No Agree to transfusion: Yes Physical Exam 2 Const: COMMON NORMALS: no acute distress GENERAL APPEARANCE: cooperative and comfortable ORIENTATION/CONSCIOUSNESS: Yes awake, Yes oriented to person, Yes oriented to place and Yes oriented to time HENMT: COMMON NORMALS: normocephalic, atraumatic and hearing grossly normal bilaterally HEAD & SCALP: normocephalic and atraumatic Resp: COMMON NORMALS: normal respiratory effort, No retractions, No use of accessory muscles and clear to auscultation bilaterally AUSCULTATION: clear to auscultation bilaterally Cardio: COMMON NORMALS: regular rate, regular rhythm and No murmurs present (Cardio) RATE: regular rate RHYTHM: regular rhythm GI: COMMON NORMALS: Soft to palpation and No hepatosplenomegaly present A USCULTATION: Yes normoactive bowel sounds PALPATION: Yes Soft to palpation, No Tenderness to palpation present (GI), No Guarding due to palpation present (GI) and Yes No hepatosplenomegaly present Extremity: COMMON NORMALS: normal to inspection, capillary refill normal, no clubbing, cyanosis or edema, no calf tenderness and no pedal edema Neuro: SENSORIUM/ORIENTATION: Yes oriented to person, Yes oriented to place and Yes oriented to time Skin: COMMON NORMALS: no rashes or lesions noted GENERAL SKIN EXAM: no rashes or lesions noted Course 2 Vital Signs: Vital signs: Vital Signs Temperature 97.6 F 08/17/23 09:50 Pulse Rate 71 08/17/23 09:50 Respiratory Rate 18 08/17/23 09:50 Blood Pressure 165/92 08/17/23 09:50 Pulse Oximetry 98 08/17/23 09:50 Oxygen Delivery Me thod Room Air 08/17/23 07:43 MDM - Anxiety Medical Decision Making Acute hyperventilation. He is feeling much better labs and imaging reviewed. He is severely hypokalemic. He has chronic kidney disease and his blood pressure is poorly controlled has not taken his medications today. Patient was given oral supplement by liquid potassium and on recheck it had actually gone down instead of improving. Given this decided to place patient on observation discussed with hospitalist orders written Medical Records I reviewed the patient's medical records. Lab Data I reviewed the patient's lab results. 08/17/23 06:02 08/17/23 06:02 Radiology Impressions Chest X-Ray 08/15/23 17:57 IMPRESSION: No acute findings. Laboratory Results WBC 13.25 10^3/uL (3.29-11.43) H 08/15/23 08:51 RBC 4.36 10^6/uL (3.85-5.65) 08/15/23 08:51 Hgb 10.20 g/dL (11.27-16.99) L 08/15/23 08:51 Hct 31.8 % (37-53) L 08/15/23 08:51 MCV 72.9 fl (82-101) L 08/15/23 08:51 MCH 23.4 pg (27-33) L 08/15/23 08:51 MCHC 32.1 g/dL (30-55) 08/15/23 08:51 RDW 18.6 % (12.1-15.1) H 08/15/23 08:51 Plt Count 260 10^3/cmm (157-399) 08/15/23 08:51 MPV 9.6 fL (7.4-10.4) 08/15/23 08:51 Neut % (Auto) 77.7 % 08/15/23 08:51 Lymph % (Auto) 10.7 % 08/15/23 08:51 [place] % (Auto) 10.0 % 08/15/23 08:51 Eos % (Auto) 0.0 % 08/15/23 08:51 Baso % (Auto) 0.2 % 08/15/23 08:51 Neut # (Auto) 10.31 10^3/uL (1.8-7.7) H 08/15/23 08:51 Lymph # (Auto) 1.4 10^3/uL (0.8-4.8) 08/15/23 08:51 [place] # (Auto) 1.3 10^3/uL (0.2-0.9) H 08/15/23 08:51 Eos # (Auto) 0.0 10^3/uL (0.0-0.8) 08/15/23 08:51 Baso # (Auto) 0.0 10^3/uL (0.0-0.1) 08/15/23 08:51 Nucleated RBC % (auto) 0 % 08/15/23 08:51 Nucleated RBCs # 0.0 /100WBC 08/15/23 08:51 PT 13.20 SECONDS (12.1-14.9) 08/15/23 08:51 INR 0.97 (0.8-1.2) 08/15/23 08:51 APTT 28.2 SECONDS (23.9-36.7) 08/15/23 08:51 Specimen Type Arterial 08/15/23 08:48 Sample Site Brachial, left 08/15/23 08:48 ABG pH 7.62 (7.35-7.45) H* 08/15/23 08:48 ABG pCO2 19.7 mmHg (35-45) L* 08/15/23 08:48 ABG pO2 83.0 mmHg (80.0-100.0) 08/15/23 08:48 ABG PO2/FiO2 Ratio 0 08/15/23 08:48 ABG HCO3 20.2 mmol/L (22-26) L 08/15/23 08:48 ABG O2 Saturation 98.0 08/15/23 08:48 ABG Base Excess 0.3 mmol/L (-2.0-2.0) 08/15/23 08:48 Hernandez Test N/a 08/15/23 08:48 A-a O2 Gradient 5.2 mmHg (5-10) 08/15/23 08:48 Hematocrit 32.2 % (42-52) L 08/15/23 08:48 Hgb O2 Saturation 96.3 % (95-100) 08/15/23 08:48 Carboxyhemoglobin 1.2 %THgb (0.4-20.1) 08/15/23 08:48 Methemoglobin 0.5 % (0.4-1.5) 08/15/23 08:48 Total Hemoglobin 10.5 g/dL (14-18) L 08/15/23 08:48 Sodium 141.0 mmol/L (131-143) 08/15/23 08:48 Potassium 2.6 mmol/L (3.5-5.0) L 08/15/23 08:48 Glucose 147.0 mg/dL (70-115) H 08/15/23 08:48 Ionized Calcium 1.2 mmol/L (1.1-1.4) 08/15/23 08:48 O2 Delivery Device Room air 08/15/23 08:48 FiO2 21.0 % 08/15/23 08:48 Business Partner ID Amh 08/15/23 08:48 Sodium 136 mmol/L (136-145) 08/15/23 08:51 Potassium 2.5 mmol/L (3.5-5.1) L* 08/15/23 10:28 Chloride 99 mmol/L (98-107) 08/15/23 08:51 Carbon Dioxide 19 mmol/L (22-29) L 08/15/23 08:51 Anion Gap 20.9 (5-19) H 08/15/23 08:51 BUN 14 mg/dL (8-23) 08/15/23 08:51 Creatinine 1.1 mg/dL (0.7-1.2) 08/15/23 08:51 GFR Calculation 67.4 mL/min (90-130) L 08/15/23 08:51 Glucose 143 mg/dL (65-115) H 08/15/23 08:51 Calculated Osmolality 285 mOsm/kg (285-295) 08/15/23 08:51 Calcium 10.4 mg/dL (8.5-10.5) 08/15/23 08:51 Magnesium 1.9 mg/dL (1.7-2.3) 08/15/23 08:51 Total Bilirubin 0.7 mg/dL (0.15-1.2) 08/15/23 08:51 AST 23 U/L (0-40) 08/15/23 08:51 ALT 9 U/L (0-41) 08/15/23 08:51 Alkaline Phosphatase 80 U/L (40-130) 08/15/23 08:51 Total Protein 8.2 g/dL (6.6-8.7) 08/15/23 08:51 Albumin 4.5 g/dL (3.5-5.2) 08/15/23 08:51 Globulin 3.7 g/dL (1.3-4.6) 08/15/23 08:51 Lipase 23 U/L (13-60) 08/15/23 08:51 Salicylates 0.6 mg/dL (3-10) L 08/15/23 08:51 Acetaminophen < 5.0 ug/mL (10-30) L 08/15/23 08:51 Ethyl Alcohol < 10 mg/dL (0-10) 08/15/23 08:51 All radiology interpretation(s) finalized by discharge Discharge Plan Discharge Patient Disposition: Placed in Observation Admit Provider: Sho Zelaya Clinical Impression: Acute hypokalemia, Hyperventilation, Acute anxiety, Chronic lower back pain Condition: Stable Discharge Orders: Discharge Order (Routine); Ordered 08/17/23 Ordered By: Lavelle Benton Discharge Diet: Usual diet Discharge Activity: Increase activity as tolerated Coding Level of Care Code ED Public Health Doctor for Skylar Craig
[2023-08-15 08:59] LABS: Alveolar-Arterial Oxygen Gradi 5.2 mmHg (5-10); Arterial Blood Gas Hematocrit 32.2 % (42-52); Base Excess ABG 0.3 mmol/L (-2.0-2.0); Blood Gas Operator Identificat AMH; Blood Gas Sample Site Brachial, left; Blood Gas Sample Type Arterial; Carboxyhemoglobin 1.2 %THgb (0.4-20.1); HCO3 ABG 20.2 mmol/L (22-26); HGB O2 Sat 96.3 % (95-100); Ionized Calcium Level - ABG 1.2 mmol/L (1.1-1.4); Methemoglobin 0.5 % (0.4-1.5); Oxygen Device ROOM AIR; PO2 FiO2 Ratio Arterial Blood 0; Potassium Level - ABG 2.6 mmol/L (3.5-5.0); Total Hemoglobin 10.5 g/dL (14-18)
[2023-08-15 09:00] LABS: ABG PCO2 19.7 mmHg (35-45); ABG PH Result 7.62 (7.35-7.45)
[2023-08-15 09:02] LABS: Basophils % 0.2 %; Hematocrit 31.8 % (37-53); Lymphocytes # 1.4 10^3/uL (0.8-4.8); Lymphocytes % 10.7 %; Mean Corpuscular HGB Conc 32.1 g/dL (30-55); Mean Corpuscular Hemoglobin 23.4 pg (27-33); Mean Corpuscular Volume 72.9 fl (82-101); Mean Platelet Volume 9.6 fL (7.4-10.4); Monocytes # 1.3 10^3/uL (0.2-0.9); Neutrophils # 10.31 10^3/uL (1.8-7.7); Neutrophils % 77.7 %; Nucleated Red Blood Cells % 0 %; Platelet Count 260 10^3/cmm (157-399); Red Blood Count 4.36 10^6/uL (3.85-5.65); Red Cell Distribution Width 18.6 % (12.1-15.1); White Blood Count 13.25 10^3/uL (3.29-11.43)
[2023-08-15] MEDS: sodium chloride 0.9% 1,000 ML 999 ML IV ×2 (09:02→10:25)
[2023-08-15] MEDS: LORazepam 2 mg/mL INJ 1 mL IVP (09:03)
--- NOTE | 2023-08-15 09:06 | PC.PHAR ---
pt states he takes care of his own medications-pt states he has been taking gabapentin 300mg hs rx filled 07/11/23 30d/s 300mg tid-pt states dr rodríguez losartan 50mg daily ext shows last filled 12/29/22 90d/s-
[2023-08-15 09:19] LABS: INR 0.97 (0.8-1.2)
[2023-08-15 09:20] LABS: Partial Thromboplastin Time 28.2 SECONDS (23.9-36.7)
[2023-08-15 09:24] LABS: Alanine Aminotransferase 9 U/L (0-41); Albumin Level 4.5 g/dL (3.5-5.2); Alkaline Phosphatase 80 U/L (40-130); Anion Gap 20.9 (5-19); Aspartate Amino Transferase 23 U/L (0-40); Blood Urea Nitrogen 14 mg/dL (8-23); Calcium 10.4 mg/dL (8.5-10.5); Carbon Dioxide 19 mmol/L (22-29); Chloride 99 mmol/L (98-107); Globulin 3.7 g/dL (1.3-4.6); Glomerular Filtration Rate 67.4 mL/min (90-130); Glucose 143 mg/dL (65-115); Lipase 23 U/L (13-60); Osmolality Calculated 285 mOsm/kg (285-295); Salicylate 0.6 mg/dL (3-10); Sodium 136 mmol/L (136-145); Total Bilirubin 0.7 mg/dL (0.15-1.2); Total Protein 8.2 g/dL (6.6-8.7)
[2023-08-15 09:31] LABS: Acetaminophen < 5.0 ug/mL (10-30); Alcohol Level < 10 mg/dL (0-10); Potassium 2.9 mmol/L (3.5-5.1)
[2023-08-15] MEDS: potassium chloride oral liq 20 mEq/15 mL UDC 40 MEQ PO (10:21)
[2023-08-15 11:22] LABS: Potassium 2.5 mmol/L (3.5-5.1)
[2023-08-15] MEDS: potassium chloride oral liq 20 mEq/15 mL UDC 60 MEQ PO (11:46)
--- NOTE | 2023-08-15 12:39 | PM.HP ---
Providers/Chief Complaint Admitting Physician: Sho Zelaya MD Primary Care Provider: Chey Rae MD Chief Complaint: anxiety History of Present Illness Jack Dhaliwal is a 62 year old male who presented to the emergency room with chief complaint of falling apart and being worn down . He has a history of irritable bowel syndrome with what sounds like predominantly diarrhea. He has been having increased abdominal pain lately worse than usual. It is generalized but most prominent in left-sided quadrants upper more than lower. He describes it as severe, rating it a 9 out of 10. It is crampy in nature. In addition he has had increase in nausea with intermittent vomiting and increased frequency of belching. No hematemesis or coffee-ground emesis. He is unsure if he has had chest pain but points to his left upper abdomen is an area that is achy. He has had back pain along with this. The only thing that seems to have really helped him has been a hot shower providing only temporary relief while he is under the hot water. He has goodies and ibuprofen on his home medication list but says he does not take them very often because they tear up my stomach . Denies daily use. The only morning medicine he took today was his Prevacid but it really did nothing to help him. He has liquid stools that he describes as black tar in color. He has had this previously and underwent EGD and colonoscopy in December of this year. EGD showed upper esophageal varices without active bleeding. He has known iron deficiency anemia secondary to chronic GI losses from available information. He denies any urinary frequency or dysuria. No report of any fever. He has had some weight loss but unclear how much. Looking at available records weight has fluctuated from generally 61 to 71 kg this year. He continues to smoke some cigarettes every day. He reports occasional marijuana use. He quit drinking in December of this year and has maintained that abstinence. He is quite anxious because of all of the symptoms that he is experiencing. When asked if current presentation is similar to prior issues with porphyria, he indicates that bleeding in the skin is the primary problem that he has with that. Denies GI or other intermittent symptoms associated with that diagnosis. He has felt short of breath and at times hyperventilating as a means of controlling his symptoms of nausea and discomfort. The back pain he describes is not new. He is followed at pain clinic and last received steroid trigger point injections in early July in 4 muscle groups. Work-up in the emergency room today revealed hypokalemia with potassium of 2.9. He received some IV fluids and oral potassium replacement, along with some lorazepam and hydroxyzine. Initial plan was for discharge home but recheck potassium level was down to 2.5. Request was made for observation admission for continued potassium replacement and work-up as indicated. Patient was hypertensive in the emergency room which he attributes to anxiety and not taking his medications. Lipase was checked and was normal. Liver enzymes were normal. Hemoglobin was within a similar range to prior values this year. White count was elevated by automated differential. An ABG was done showing 7.62/19.7/83/20.2. Blood glucose was slightly elevated. No history of diabetes. Alcohol and salicylate levels were not elevated. At the time of my evaluation, patient is wanting something to knock him out so that he will feel better. He is cooperative and history is obtained from him. Review of Systems General: Reports: Other (ROS as per HPI or as otherwise noted here) ENMT: Denies: throat pain or nasal congestion Card: Reports: palpitations; Denies: edema Resp: Denies: productive cough or non-productive cough GI: Reports: heartburn; Denies: change in stool character Neuro: Reports: weakness in extremities (General rather than focal); Denies: headache(s), frequent falls or involuntary movements Psych: Reports: sleeping less (Due to discomfort); Denies: suicidal ideation Medications/Allergies Home Medications Medication Instructions Recorded Confirmed Last Taken Type aspirin 520 mg-acetaminophen 260 1 packet PO DAILY PRN Pain 12/24/22 08/15/23 12/23/22 History mg-caffeine 32.5 mg oral powder pack (Goody's Extra Strength) lansoprazole 15 mg capsule,delayed 15 mg PO QAM 02/16/23 08/15/23 02/19/23 History release (Prevacid 24Hr) ibuprofen 200 mg tablet 600 mg PO Q6H PRN Pain 02/20/23 08/15/23 Unknown History propranolol 40 mg tablet 20 mg (1/2 x 40 mg) PO BID #60 tabs 06/24/23 08/15/23 Unknown Rx amlodipine 5 mg tablet 5 mg PO QAM 08/15/23 08/15/23 2 Days Ago History ~08/13/23 citalopram 10 mg tablet 10 mg PO DAILY 08/15/23 08/15/23 Unknown History gabapentin 300 mg capsule 300 mg PO BEDTIME pain 08/15/23 08/15/23 4 Days Ago History ~08/11/23 Allergies Allergy/AdvReac Type Severity Reaction Status Date / Time No Known Allergies Allergy Verified 08/15/23 09:03 PFSH Acute PFSH: Medical History (Updated 08/15/23 @ 14:26 by Sho Zelaya MD) Chronic kidney disease Tobacco use disorder, moderate, dependence Alcohol use disorder in remission as of 12/2022 Porphyria details of diagnosis unknown Neuropathy Lumbar disc disease with radiculopathy Chronic neck and back pain Chronic lower back pain IBS (irritable bowel syndrome) Esophageal varices History of GI bleed 11/2022, upper Cannabis use disorder Generalized anxiety disorder Psychiatric care Hypertension Hep C w/o coma, chronic history of treatment Surgical History (Updated 08/15/23 @ 12:39 by Sho Zelaya MD) Hx of colonoscopy with polypectomy 2020, 12/2022 at [facility] no abnormalities seen History of esophagogastroduodenoscopy (EGD) 2014 [place], 12/2022 at [facility] upper esophageal varices without active bleeding seen History of tonsillectomy and adenoidectomy Family History Mother Cancer brain tumor Diabetes Sister Diabetes Other Hypertension Lung disease Psychiatric illness Denies family history of CAD (coronary artery disease) Clotting disorder Dementia Hyperlipidemia Chronic kidney disease (CKD) Anesthesia complication Bleeding disorder Stroke Social History Smoking and tobacco/nicotine status: current every day tobacco/nicotine user cigarettes Packs smoked per day: 0.75 Years cigarettes smoked: 45 [ Other cigarette details: 3/4 PPD, 40PY] Quit status (tobacco/nicotine): has tried quititng Number of times tried to quit tobacco: 10 Second hand smoke exposure: No Alcohol intake: former Former alcohol use details: December 2022 Substance/Drug Use: current Substance/Drug use frequency: daily Other substance/drug use details: Medical card Caregiver/support person: No Lives independently: Yes Household members: none Marital status: Single Number of children: 0 service: Yes status: Medically Discharged/Retired Current occupational status: retired Current gender identity: Male Special vidya needs: No Agree to transfusion: Yes Vitals/I&O/Wt Last Vital Signs Temp 98.5 F 08/15/23 08:24 Pulse 111 H 08/15/23 11:57 Resp 27 H 08/15/23 09:07 BP 188/90 08/15/23 11:57 Pulse Ox 97 08/15/23 11:57 O2 Del Method Room Air 08/15/23 11:57 08/14/23 08/15/23 08/15/23 22:59 06:59 14:59 Intake Total 1999 Balance 1999 Weight last 48 hrs Weight 68.039 kg Physical Exam Narrative: Patient is awake and alert. Able to provide history. Thin build. Quite restless during evaluation rubbing his legs and his abdomen, gets up to walk to trash can in case he has to vomit, then sits back in bed. Cooperative with questioning and follows commands. Normocephalic. Extraocular movements are intact. Dry mucous membranes. Lungs are clear to auscultation bilaterally without any rales or wheezes noted. He is tachypneic. Tachycardic but regular rhythm. No JVD appreciated. Pulses are 2+. No mottling is noted. Abdomen is soft tender to palpation throughout without any rebound or guarding. No palpable masses or pulsations. Left upper quadrant most tender followed by left lower quadrant, right upper quadrant, right lower quadrant. No pitting edema or calf tenderness. Speech is soft but clear. Face is symmetric. Moves all extremities. No abnormal movements noted beyond restlessness. Data 08/15/23 08:51 08/15/23 10:28 Other Labs: Prior Laboratory Tests 06/24/23 13:18 WBC 3.35 Iron 20 L Ferritin 12 L Vitamin B12 258 TSH 1.11 Laboratory Tests 11/18/22 12/29/22 14:04 10:15 % Saturation 4.6 L Unsat Iron Binding 387 H Triglycerides 64 Cholesterol 129 LDL Cholesterol, Calc 41 L HDL Cholesterol 75 LDL/HDL Ratio 0.55 Cholesterol/HDL Ratio 1.72 This Visit Laboratory Results 08/15/23 08:51 Potassium 2.9 L WBC 13.25 10^3/uL (3.29-11.43) H 08/15/23 08:51 RBC 4.36 10^6/uL (3.85-5.65) 08/15/23 08:51 Hgb 10.20 g/dL (11.27-16.99) L 08/15/23 08:51 Hct 31.8 % (37-53) L 08/15/23 08:51 MCV 72.9 fl (82-101) L 08/15/23 08:51 MCH 23.4 pg (27-33) L 08/15/23 08:51 MCHC 32.1 g/dL (30-55) 08/15/23 08:51 RDW 18.6 % (12.1-15.1) H 08/15/23 08:51 Plt Count 260 10^3/cmm (157-399) 08/15/23 08:51 MPV 9.6 fL (7.4-10.4) 08/15/23 08:51 Neut % (Auto) 77.7 % 08/15/23 08:51 Lymph % (Auto) 10.7 % 08/15/23 08:51 [place] % (Auto) 10.0 % 08/15/23 08:51 Eos % (Auto) 0.0 % 08/15/23 08:51 Baso % (Auto) 0.2 % 08/15/23 08:51 Neut # (Auto) 10.31 10^3/uL (1.8-7.7) H 08/15/23 08:51 Lymph # (Auto) 1.4 10^3/uL (0.8-4.8) 08/15/23 08:51 [place] # (Auto) 1.3 10^3/uL (0.2-0.9) H 08/15/23 08:51 Eos # (Auto) 0.0 10^3/uL (0.0-0.8) 08/15/23 08:51 Baso # (Auto) 0.0 10^3/uL (0.0-0.1) 08/15/23 08:51 Nucleated RBC % (auto) 0 % 08/15/23 08:51 Nucleated RBCs # 0.0 /100WBC 08/15/23 08:51 PT 13.20 SECONDS (12.1-14.9) 08/15/23 08:51 INR 0.97 (0.8-1.2) 08/15/23 08:51 APTT 28.2 SECONDS (23.9-36.7) 08/15/23 08:51 Specimen Type Arterial 08/15/23 08:48 Sample Site Brachial, left 08/15/23 08:48 ABG pH 7.62 (7.35-7.45) H* 08/15/23 08:48 ABG pCO2 19.7 mmHg (35-45) L* 08/15/23 08:48 ABG pO2 83.0 mmHg (80.0-100.0) 08/15/23 08:48 ABG PO2/FiO2 Ratio 0 08/15/23 08:48 ABG HCO3 20.2 mmol/L (22-26) L 08/15/23 08:48 ABG O2 Saturation 98.0 08/15/23 08:48 ABG Base Excess 0.3 mmol/L (-2.0-2.0) 08/15/23 08:48 Hernandez Test N/a 08/15/23 08:48 A-a O2 Gradient 5.2 mmHg (5-10) 08/15/23 08:48 Hematocrit 32.2 % (42-52) L 08/15/23 08:48 Hgb O2 Saturation 96.3 % (95-100) 08/15/23 08:48 Carboxyhemoglobin 1.2 %THgb (0.4-20.1) 08/15/23 08:48 Methemoglobin 0.5 % (0.4-1.5) 08/15/23 08:48 Total Hemoglobin 10.5 g/dL (14-18) L 08/15/23 08:48 Sodium 141.0 mmol/L (131-143) 08/15/23 08:48 Potassium 2.6 mmol/L (3.5-5.0) L 08/15/23 08:48 Glucose 147.0 mg/dL (70-115) H 08/15/23 08:48 Ionized Calcium 1.2 mmol/L (1.1-1.4) 08/15/23 08:48 O2 Delivery Device Room air 08/15/23 08:48 FiO2 21.0 % 08/15/23 08:48 [employer] Manager ID Amh 08/15/23 08:48 Sodium 136 mmol/L (136-145) 08/15/23 08:51 Potassium 2.5 mmol/L (3.5-5.1) L* 08/15/23 10:28 Chloride 99 mmol/L (98-107) 08/15/23 08:51 Carbon Dioxide 19 mmol/L (22-29) L 08/15/23 08:51 Anion Gap 20.9 (5-19) H 08/15/23 08:51 BUN 14 mg/dL (8-23) 08/15/23 08:51 Creatinine 1.1 mg/dL (0.7-1.2) 08/15/23 08:51 GFR Calculation 67.4 mL/min (90-130) L 08/15/23 08:51 Glucose 143 mg/dL (65-115) H 08/15/23 08:51 Calculated Osmolality 285 mOsm/kg (285-295) 08/15/23 08:51 Calcium 10.4 mg/dL (8.5-10.5) 08/15/23 08:51 Magnesium 1.9 mg/dL (1.7-2.3) 08/15/23 08:51 Total Bilirubin 0.7 mg/dL (0.15-1.2) 08/15/23 08:51 AST 23 U/L (0-40) 08/15/23 08:51 ALT 9 U/L (0-41) 08/15/23 08:51 Alkaline Phosphatase 80 U/L (40-130) 08/15/23 08:51 Total Protein 8.2 g/dL (6.6-8.7) 08/15/23 08:51 Albumin 4.5 g/dL (3.5-5.2) 08/15/23 08:51 Globulin 3.7 g/dL (1.3-4.6) 08/15/23 08:51 Lipase 23 U/L (13-60) 08/15/23 08:51 Salicylates 0.6 mg/dL (3-10) L 08/15/23 08:51 Acetaminophen < 5.0 ug/mL (10-30) L 08/15/23 08:51 Ethyl Alcohol < 10 mg/dL (0-10) 08/15/23 08:51 A&P Assessment and plan (1) Hypokalemia: Clinically appears to be due to GI losses from diarrhea and vomiting based on history provided. With current hypertension adrenal axis abnormalities could be considered but I do not see that this has been a particularly persistent problem for him though he has had prior episodes of low potassium and a short time span back in 2019. Not on medications classically associate with potassium depletion. (2) Abdominal pain: Generalized but most prominent in left upper quadrant. Patient has a known history of irritable bowel syndrome with diarrhea. Pain is more severe than what he is accustomed to. EGD earlier this year showed no abnormalities beyond proximal esophageal varices. He does have ibuprofen and Goody's powder on his home medication list so gastroesophagitis is high on differential particularly with continued reports of melena. Infectious or inflammatory processes as well as vascular are within the differential. He reports a history of porphyria though I do not have details about the type. Acute intermittent porphyria will often present with abdominal pain but he denies GI component to that diagnosis. No history of GI invasive procedures beyond endoscopies. Cyclical vomiting is another consideration. Qualifiers: Abdominal location: generalized Qualified Code(s): R10.84 - Generalized abdominal pain (3) Leukocytosis: Suspect leukemoid reaction at this point in time but infectious process, bacterial and viral, also within the differential. He does have slight elevation in absolute neutrophil count and monocyte count. Previously had had leukopenia with labs earlier in the year. (4) Hyperventilation: Related to anxiety. ABG reflects this. Improved earlier after some Ativan in the emergency room. (5) Essential hypertension: Currently uncontrolled. Had not taken either amlodipine or propanolol yet today. Has associated tachycardia also likely in part related to not having propranolol. Anxiety exacerbating this as well. (6) Generalized anxiety disorder: Chronically on citalopram. Pain and other medical issues exacerbate his anxiety and vice versa. (7) EDWAR (iron deficiency anemia): From chronic GI losses. Iron level was 20 on iron replacement. Qualifiers: Iron deficiency anemia type: chronic blood loss Qualified Code(s): D50.0 - Iron deficiency anemia secondary to blood loss (chronic) (8) GERD (gastroesophageal reflux disease): Chronically on Prevacid daily with instructions to take twice a day when needed. Had EGD in December of this year. (9) Chronic kidney disease: Stage II with GFR in the 60s to 70s this year, secondary to suboptimally controlled hypertension Qualifiers: Chronic kidney disease stage: stage 2 (mild) Qualified Code(s): N18.2 - Chronic kidney disease, stage 2 (mild) (10) Hep C w/o coma, chronic: At chronic diagnosis status post prior treatment. Normal INR and liver function studies. Has upper esophageal varices identified on endoscopy. (11) Cannabis use disorder: (12) Tobacco use disorder, moderate, dependence: (13) Alcohol use disorder in remission: Plan Hyperglycemia without a history of Diabetes Observation admission IV fluids with potassium We will recheck potassium level in a few hours as he has already received significant oral potassium replacement Magnesium level was lower end of normal range Check phosphorus Check EKG and troponin level Check ESR, CRP and lactic acid Check urinalysis IV PPI AR Phenergan We will give another dose of lorazepam Consider IV beta-blockade if unable to take usual oral propranolol later today Plan to resume home amlodipine and propanolol when able to take medications by mouth Telemetry monitoring secondary to tachycardia Hold any NSAIDs, discussed with patient that both ibuprofen and Goody's were not good for his stomach in the setting of known varices and with the discomfort that he has been experiencing Given history of hepatitis C maximum Tylenol dosing per day 2 g Trying to avoid narcotics for pain control if we can given history of polysubstance dependence; monitoring response to management as ordered After acute GI symptoms improve can consider initiation of iron replacement Check hemocult stool Check stool studies for possible infection Recheck CBC in am Monitor for development of new signs and symptoms, results from pending studies suggesting need for additional work-up or management Check A1c in am VTE prophylaxis: Low risk for VTE currently secondary to observation status GI Prophylaxis: PPI, chronically on oral, with current symptoms IV PPI ordered twice daily Telemetry: Currently ordered secondary to tachycardia in a patient chronically on beta-blockade with hypokalemia Wolf: not currently indicated Line(s): peripheral IVs Disposition plan: Home with outpatient follow up to primary care provider which appears to be Dr. Rae. Would benefit from iron replacement, follow-up electrolytes and hemoglobin in a week along with recheck of blood pressure and anxiety levels Code Status: Full Code Supportive care otherwise Findings, concerns and plans were discussed with patient and he was given an opportunity to ask questions Attestations Medical Necessity Statement*: Currently anticipate a stay less than two midnights in this gentleman presenting with abdominal pain found to have hypokalemia likely from GI losses. In addition he has uncontrolled hypertension from not taking his medications today, sinus tachycardia after missing propranolol and an elevated white count currently with unclear etiology. His anxiety is exacerbated by his acute symptoms and findings. He is receiving IV fluids, repeat laboratory studies, IV anxiolytics, IV PPI and monitoring as described. and Moderate Time for a total of 70 minutes, includes reviewing past or interval history, examining/interviewing patient, placing orders, discussing plan of care with staff and documenting encounter Diagnoses Hypokalemia E87.6 Generalized abdominal pain R10.84 Abdominal location: generalized Leukocytosis D72.829 Hyperventilation R06.4 Essential hypertension I10 Generalized anxiety disorder F41.1 Iron deficiency anemia due to chronic blood loss D50.0 Iron deficiency anemia type: chronic blood loss GERD (gastroesophageal reflux disease) K21.9 Stage 2 chronic kidney disease N18.2 Chronic kidney disease stage: stage 2 (mild) Hep C w/o coma, chronic B18.2 Cannabis use disorder F12.90 Tobacco use disorder, moderate, dependence F17.200 Alcohol use disorder in remission F10.91
[2023-08-15 12:40] LABS: Magnesium 1.9 mg/dL (1.7-2.3)
--- NOTE | 2023-08-15 13:29 | ECG_ITS ---
[facility] Test Date: 2023-08-15 Pat Name: Jack Dhaliwal Department: Room: EDIP Gender: Male Clinical Nurse Specialist: : [id number] Requested By: Sho Zelaya Order Number: [id number] Emilio MD: Clare Loza M.D. Measurements Intervals [place] Rate: 100 P: 78 AL: 166 QRS: 52 QRSD: 78 T: 44 QT: 328 QTc: 423 Interpretive Statements SINUS TACHYCARDIA ABNORMAL RHYTHM ECG Compared to ECG 02/20/2023 12:00:24 Sinus rhythm no longer present Sinus arrhythmia no longer present Electronically Signed On 08-15-2023 13:50:57 COMMUNITY SERVICE ORGANIZATION DIRECTOR by Clare Loza M.D. [id number]
[2023-08-15] MEDS: promethazine 25 mg Supp PR (13:31)
[2023-08-15] MEDS: LORazepam 2 mg/mL INJ 1 mL 1 MG IVP (13:33)
[2023-08-15] MEDS: sodium chlor 0.9% + KCl 20 mEq 20 MEQ/1,000 ML BAG 100 MEQ IV (15:22)
[2023-08-15] MEDS: calcium carbonate 500 mg Chew Tablet 1000 MG PO (15:40)
[2023-08-15 15:42] LABS: Basophils % 0.1 %; Lymphocytes # 0.9 10^3/uL (0.8-4.8); Lymphocytes % 6.7 %; Mean Corpuscular HGB Conc 30.6 g/dL (30-55); Mean Corpuscular Hemoglobin 23.2 pg (27-33); Mean Corpuscular Volume 75.7 fl (82-101); Mean Platelet Volume 9.6 fL (7.4-10.4); Monocytes # 1.4 10^3/uL (0.2-0.9); Neutrophils # 11.14 10^3/uL (1.8-7.7); Neutrophils % 81.7 %; Nucleated Red Blood Cells % 0 %; Platelet Count 232 10^3/cmm (157-399); Red Blood Count 4.36 10^6/uL (3.85-5.65); Red Cell Distribution Width 18.6 % (12.1-15.1); White Blood Count 13.63 10^3/uL (3.29-11.43)
[2023-08-15] MEDS: pantoprazole 40 mg SDV IVP (15:46)
[2023-08-15 15:47] LABS: Erythrocyte Sedimentation Rate 47 mm/hr (0-10)
[2023-08-15 15:52] LABS: Troponin T (5th) Once 14 ng/L (0-15)
[2023-08-15 15:56] LABS: Anion Gap 17.8 (5-19); Blood Urea Nitrogen 13 mg/dL (8-23); C Reactive Protein 48.3 mg/L (0.0-4.9); Calcium 9.9 mg/dL (8.5-10.5); Carbon Dioxide 21 mmol/L (22-29); Chloride 105 mmol/L (98-107); Glomerular Filtration Rate 75.2 mL/min (90-130); Glucose 149 mg/dL (65-115); Osmolality Calculated 293 mOsm/kg (285-295); Potassium 3.8 mmol/L (3.5-5.1); Sodium 140 mmol/L (136-145)
[2023-08-15 16:04] LABS: Lactate (Lactic Acid level) 2.2 mmol/L (0.5-2.2)
[2023-08-15 16:32] LABS: Phosphorus 2.9 mg/dL (2.5-4.5)
--- NOTE | 2023-08-15 17:57 | XRR_ITS ---
PROCEDURE INFORMATION: Exam: XR Chest Exam date and time: 08/15/2023 7:37 PM Age: 62 years old Clinical indication: Abnormal findings; Abnormal diagnostic tests; Abnormal ekg; Additional info: Elevated wbc and abd pain TECHNIQUE: Imaging protocol: Radiologic exam of the chest. Views: 1 view. COMPARISON: CR XR chest 1V portable [id number] 05/19/2020 8:03 AM FINDINGS: Lungs: Unremarkable. No consolidation. Pleural spaces: Unremarkable. No pleural effusion. No pneumothorax. Heart/Mediastinum: Unremarkable. No cardiomegaly. Bones/joints: Unremarkable. XR/XR chest 1V portable [id number] IMPRESSION: No acute findings.
--- NOTE | 2023-08-15 19:12 | PC.NURSE ---
ROUNDING/BEDSIDE REPORT When entered room pt was found in the shower and bathroom floor was flooded with water. Had IV stretched but still intact. Was assisted back to bed but he was not very cooperative with nurses instructions. Took off walking fast with feet wet and would not listen when told floor would be slick and he could fall. Also not very cooperative with questions asked. Vague about pain. Just says hurts across all of abdomen but will not rate pain.c/o being very cold and warm blankets were added. IV redressed due to wetness. Remains intact. Bed alarm on for safety
[2023-08-15] MEDS: hyDROXYzine 25 mg Capsule PO (20:33)
[2023-08-15] MEDS: propranolol 40 mg Tablet 20 MG PO (20:35)
[2023-08-16] VITALS (7 sets, daily range): BP systolic 127–163; BP diastolic 76–95; PULSE 67–80; RESP 17–19; TEMP 36.6–37.8; O2SAT 94–98
[2023-08-16] MEDS: LORazepam 1 mg Tablet PO (01:00)
[2023-08-16] MEDS: sodium chlor 0.9% + KCl 20 mEq 20 MEQ/1,000 ML BAG 100 MEQ IV ×2 (01:01→14:48)
[2023-08-16] MEDS: pantoprazole 40 mg SDV IVP (03:16)
[2023-08-16] MEDS: ondansetron 2 mg/ML SDV 2 mL 4 MG IVP ×2 (03:16→14:51)
[2023-08-16] MEDS: amlodipine 5 mg Tablet PO (05:12)
[2023-08-16 06:29] LABS: Basophils % 0.1 %; Lymphocytes # 0.9 10^3/uL (0.8-4.8); Lymphocytes % 12.3 %; Mean Corpuscular HGB Conc 30.7 g/dL (30-55); Mean Corpuscular Hemoglobin 23.5 pg (27-33); Mean Corpuscular Volume 76.5 fl (82-101); Mean Platelet Volume 9.7 fL (7.4-10.4); Monocytes # 0.8 10^3/uL (0.2-0.9); Monocytes % 10.2 %; Neutrophils # 5.85 10^3/uL (1.8-7.7); Neutrophils % 76.9 %; Nucleated Red Blood Cells % 0 %; Platelet Count 190 10^3/cmm (157-399); Red Blood Count 3.66 10^6/uL (3.85-5.65); Red Cell Distribution Width 18.7 % (12.1-15.1); White Blood Count 7.62 10^3/uL (3.29-11.43)
[2023-08-16 06:48] LABS: Estmated Average Glucose 103; Hemoglobin A1C 5.2 % (4.0-6.0)
[2023-08-16 06:51] LABS: Troponin T (5th) Once 18 ng/L (0-15)
[2023-08-16 06:53] LABS: Anion Gap 13.9 (5-19); Blood Urea Nitrogen 14 mg/dL (8-23); Calcium 9.2 mg/dL (8.5-10.5); Carbon Dioxide 23 mmol/L (22-29); Chloride 110 mmol/L (98-107); Glucose 103 mg/dL (65-115); Magnesium 1.9 mg/dL (1.7-2.3); Osmolality Calculated 297 mOsm/kg (285-295); Phosphorus 2.9 mg/dL (2.5-4.5); Potassium 3.9 mmol/L (3.5-5.1); Sodium 143 mmol/L (136-145)
[2023-08-16 06:55] LABS: C Reactive Protein 53.5 mg/L (0.0-4.9)
--- NOTE | 2023-08-16 09:16 | CT_ITS ---
WS: [id number] CT ABDOMEN AND PELVIS NONCONTRAST HISTORY: diarrhea, hypokalemia TECHNIQUE: Imaging performed through the abdomen and pelvis. Coronal and sagittal reformats are submi tted. All CT scans at [facility] use at least one of these dose optimization techniques: auto mated exposure control; mA and/or kV adjustment per patient size (includes targeted exams where dose is matched to clinical indication); or iterative reconstruction. DLP: 436.79 mGy.cm COMPARISON: 01/05/2021 Lower thorax: New bibasilar consolidations and groundglass attenuation. No pleural effusion. Heart is normal size. Liver: Normal size liver. Low-attenuation mass in the RIGHT lobe measures 2.2 x 2.3 cm and has not be en previously visualized. No bile duct dilatation. Gallbladder: Normal gallbladder. No pericholecystic fluid or cholelithiasis. No gallbladder wall thic kening. Pancreas: Normal size and attenuation. Normal pancreatic duct. No pancreatitis or mass. Spleen: Normal size spleen with granulomata. Adrenal glands: Normal RIGHT adrenal gland. Mild nodularity of the LEFT adrenal gland. Right kidney: Mild perinephric stranding. No obstruction. Left kidney: Mild perinephric stranding with no obstruction. Aorta: Mild atherosclerosis abdominal aorta with no aneurysm. No free fluid, intraperitoneal air or significant lymphadenopathy. GI tract: Stomach is difficult to visualize without oral contrast. There is no small bowel obstructio n. No colon obstruction. The appendix is normal. Numerous diverticula in the descending and sigmoid c olon. No evidence for acute diverticulitis. Abdominal wall: Negative. No hernia. Pelvis: Well-distended urinary bladder. No intraluminal filling defect. Central prostate gland calcif ications. No adenopathy. Osseous structures: L2 retrolisthesis by 3 mm. IMPRESSION: 1. Low-attenuation mass in the RIGHT lobe of the liver measures 2.2 x 2.3 cm. This has not been prev iously identified. Differential includes metastatic disease and primary liver neoplasm. Less likely h emangioma or abscess. This needs to be further evaluated. RIGHT upper quadrant ultrasound may provide additional information. CT evaluation with IV contrast would also provide additional information. 2. No ascites or adenopathy. 3. Bilateral lower lobe opacifications. Probably areas of pneumonitis. 4. Moderate diverticulosis without acute diverticulitis. No colonic mass is identified on this unenh anced exam.
--- NOTE | 2023-08-16 09:47 | PC.CHAP ---
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 [] Patient/Family/Request visit [] Outpatient visit [] Follow-up visit [] Physician referral [] Code/Alert [x] Routine visit [] Staff referral [] Actively dying [] Patient sleeping [] Family support [] [] Out of room [] Palliative care [] [] Receiving care in room [] Pre-surgical visit [] Trauma [] Long length of stay [] ICU visit [] Other: Relational/Emotional Strength [x] Patient feels connected with others/family/visitors/staff [] Distress [] Loneliness/isolation [] Abandonment Spirituality of Patient [x] Person of Roselia [] Attends Orthodoxy of their [place] [x] Believes in Prayer [] Reads Bible or Uatsdin materials [] There are Spiritual issues to be addressed Bullard Operator Interventions [x] Prayer [] Active listening [] Non-anxious presence [x] Spiritual/emotional support [] Crisis/trauma care [] Spiritual counseling [] Bereavement support [] Provided bereavement packet [] Provided Bible/devotional materials [] Provided toy/stuffed animal, coloring book to patient or family member [] Provided Communion [] Anointing/[place] [] Salvation [x] Completed spiritual assessment [] Other: Impact on Illness or Injury [] Angry [] Fearful [] Anxious [] Often cries [] Exhaustion [] Unable to work [] Unable to attend church [] Unable to walk/stand [] Unable to read [] Unable to drive [] Unable to eat/drink [] Unable to sleep [] Unable to be with family [] Patient intubated [] Other: Summary Time spent with patient 5 min
[2023-08-16] MEDS: hyDROXYzine 25 mg Capsule PO ×3 (10:16→21:01)
[2023-08-16] MEDS: propranolol 40 mg Tablet 20 MG PO ×2 (10:16→21:00)
[2023-08-16] MEDS: citalopram 20 mg Tablet 10 MG PO (10:16)
--- NOTE | 2023-08-16 11:14 | US_ITS ---
WS: [id number] RIGHT UPPER QUADRANT ULTRASOUND HISTORY: Liver mass. COMPARISON: CT 08/16/2023 and prior ultrasound 01/10/2023. Liver: 15.3 cm in length. There is normal size. Hypoechoic mass is identified in the RIGHT lobe measu ring 3.0 x 2.5 x 2.3 cm. No significant increased vascularity. There may be an additional hypoechoic mass seen only on one image towards the diaphragmatic surface. There is no bile duct dilatation. Portal Vein: Normal hepatopetal flow with monophasic waveform. Gallbladder: Normally distended gallbladder with no stones or wall thickening. CBD: 0.4 cm Pancreas: Poorly visualized. Right kidney: 10.6 cm in length. Normal size and echogenicity. No hydronephrosis or mass. Aorta and IVC: Unremarkable abdominal aorta and IVC. No ascites. IMPRESSION: 1. Hypoechoic mass in the RIGHT lobe of the liver measures 3.0 x 2.5 x 2.3 cm. Suspicious for metasta tic or primary hepatic neoplasm until proven otherwise. Consider colonoscopy and follow-up PET/CT krista ging. Mass is new since 01/10/2023. 2. No ascites. 3. Normal gallbladder.
[2023-08-16 11:42] LABS: Tumor Marker Alpha Fetoprotein 1.9 ng/mL (0-8.3)
[2023-08-16] MEDS: calcium carbonate 500 mg Chew Tablet 1000 MG PO (14:47)
--- NOTE | 2023-08-16 16:48 | P.PN_ITS ---
Subjective 2 Subjective: Patient was seen this morning, he does report fatigue, malaise, weight loss, no lightheadedness, dizziness, does report nausea, vomiting diarrhea has improved, does report history of iron deficiency anemia, does report a history of hepatitis C was treated many years ago, does report a history of alcoholism, has quit over 6 months ago, no history of HIV, no history of liver disease he has had multiple liver biopsy he tells me but they have always come back negative, Vitals/I&O/Wt Last Vital Signs Temp 98 F 08/16/23 16:00 Pulse 71 08/16/23 16:00 Resp 18 08/16/23 16:00 BP 154/87 08/16/23 16:00 Pulse Ox 97 08/16/23 16:00 O2 Del Method Room Air 08/16/23 08:00 08/16/23 08/16/23 08/16/23 06:59 14:59 22:59 Intake Total 1165 / 3285 1070 / 1070 Balance 1165 / 3285 1070 / 1070 Weight last 48 hrs Weight 69.853 kg Weight 65.68 kg Weight 68.039 kg Physical Exam 2 Const: COMMON NORMALS: no acute distress and patient oriented x3 Resp: COMMON NORMALS: normal respiratory effort, No retractions, No use of accessory muscles and clear to auscultation bilaterally AUSCULTATION: clear to auscultation bilaterally Cardio: COMMON NORMALS: regular rate, regular rhythm, S1 normal heart sound present and S2 normal heart sound present RATE: regular rate RHYTHM: r egular rhythm HEART SOUNDS: S1 normal heart sound present and S2 normal heart sound present GI: COMMON NORMALS: Normal to inspection, nondistended, normoactive bowel sounds present and non-tender Extremity: COMMON NORMALS: no pedal edema Neuro: COMMON NORMALS: patient oriented x3 Psych: COMMON NORMALS: mental status grossly normal Data 08/16/23 05:55 08/16/23 05:55 A&P Assessment and plan (1) Hypokalemia: Potassium within normal limits, continue to monitor (2) Abdominal pain: CT scan abdomen pelvis Qualifiers: Abdominal location: generalized Qualified Code(s): R10.84 - Generalized abdominal pain (3) Leukocytosis: monitor (4) Hyperventilation: Related to anxiety. ABG reflects this. Improved earlier after some Ativan in the emergency room. (5) Essential hypertension: Currently uncontrolled. Had not taken either amlodipine or propanolol yet today. Has associated tachycardia also likely in part related to not having propranolol. Anxiety exacerbating this as well. (6) Generalized anxiety disorder: Chronically on citalopram. Pain and other medical issues exacerbate his anxiety and vice versa. (7) EDWAR (iron deficiency anemia): From chronic GI losses. Iron level was 20 on iron replacement. Qualifiers: Iron deficiency anemia type: chronic blood loss Qualified Code(s): D 50.0 - Iron deficiency anemia secondary to blood loss (chronic) (8) GERD (gastroesophageal reflux disease): Chronically on Prevacid daily with instructions to take twice a day when needed. Had EGD in December of this year. (9) Chronic kidney disease: Stage II with GFR in the 60s to 70s this year, secondary to suboptimally controlled hypertension Qualifiers: Chronic kidney disease stage: stage 2 (mild) Qualified Code(s): N18.2 - Chronic kidney disease, stage 2 (mild) (10) Hep C w/o coma, chronic: At chronic diagnosis status post prior treatment. Normal INR and liver function studies. Has upper esophageal varices identified on endoscopy. (11) Cannabis use disorder: (12) Tobacco use disorder, moderate, dependence: (13) Alcohol use disorder in remission: Plan Plan is to hydrate, today, CT scan abdomen pelvis, repeat blood work, continue to monitor, nausea more under control, continues to have diarrhea, stool studies VTE prophylaxis: Low risk for VTE, would avoid anticoagulant therapy given history of esophageal varices currently secondary to observation status GI Prophylaxis: PPI, chronically on oral, with current symptoms IV PPI ordered twice daily Telemetry: Currently ordered secondary to tachycardia in a patient chronically on beta-blockade with hypokalemia Wolf: not currently indicated Line(s): peripheral IVs Disposition plan: Home with outpatient follow up to primary care provider which appears to be Dr. Rae. Would benefit from iron replacement, follow-up electrolytes and hemoglobin in a week along with recheck of blood pressure and anxiety levels Code Status: Full Code Supportive care otherwise Findings, concerns and plans were discussed with patient and he was given an opportunity to ask questions Attestations 2 Medical Necessity Statement*: Patient requires hospitalization due to nausea, vomiting, abdominal pain, requiring IV hydration Diagnoses Hypokalemia E87.6 Generalized abdominal pain R10.84 Abdominal location: generalized Leukocytosis D72.829 Hyperventilation R06.4 Essential hypertension I10 Generalized anxiety disorder F41.1 Iron deficiency anemia due to chronic blood loss D50.0 Iron deficiency anemia type: chronic blood loss GERD (gastroesophageal reflux disease) K21.9 Stage 2 chronic kidney disease N18.2 Chronic kidney disease stage: stage 2 (mild) Hep C w/o coma, chronic B18.2 Cannabis use disorder F12.90 Tobacco use disorder, moderate, dependence F17.200 Alcohol use disorder in remission F10.91
[2023-08-16] MEDS: pantoprazole DR 40 mg Tablet PO (17:17)
[2023-08-16 17:38] LABS: Ferritin 33 ng/mL (30-400); Iron 15 ug/dL (59-158)
[2023-08-17] VITALS: BP 160/87; PULSE 84; RESP 18; TEMP 37.9; O2SAT 95
[2023-08-17] MEDS: sodium chlor 0.9% + KCl 20 mEq 20 MEQ/1,000 ML BAG 100 MEQ IV (00:57)
[2023-08-17] MEDS: LORazepam 1 mg Tablet PO (01:02)
[2023-08-17 04:00] VITALS: BP 177/83; PULSE 79; RESP 18; TEMP 37.5; O2SAT 95
[2023-08-17] MEDS: amlodipine 5 mg Tablet PO (05:52)
[2023-08-17 06:40] LABS: Basophils % 0.4 %; Eosinophils % 0.2 %; Hematocrit 27.5 % (37-53); Lymphocytes # 0.8 10^3/uL (0.8-4.8); Lymphocytes % 14.9 %; Mean Corpuscular HGB Conc 29.8 g/dL (30-55); Mean Corpuscular Hemoglobin 23.2 pg (27-33); Mean Corpuscular Volume 77.9 fl (82-101); Mean Platelet Volume 10.1 fL (7.4-10.4); Monocytes # 0.8 10^3/uL (0.2-0.9); Neutrophils % 70.1 %; Nucleated Red Blood Cells % 0 %; Platelet Count 202 10^3/cmm (157-399); Red Blood Count 3.53 10^6/uL (3.85-5.65); Red Cell Distribution Width 19.2 % (12.1-15.1); White Blood Count 5.56 10^3/uL (3.29-11.43)
[2023-08-17 07:03] LABS: Alanine Aminotransferase 10 U/L (0-41); Albumin Level 3.1 g/dL (3.5-5.2); Alkaline Phosphatase 57 U/L (40-130); Aspartate Amino Transferase 17 U/L (0-40); Chloride 109 mmol/L (98-107); Glucose 105 mg/dL (65-115); Potassium 3.7 mmol/L (3.5-5.1); Sodium 143 mmol/L (136-145)
[2023-08-17 07:16] VITALS: BP 137/72; PULSE 80; RESP 16; TEMP 37.7; O2SAT 95
[2023-08-17 07:20] LABS: Anion Gap 16.7 (5-19); Blood Urea Nitrogen 9 mg/dL (8-23); Calcium 8.9 mg/dL (8.5-10.5); Carbon Dioxide 21 mmol/L (22-29); Glomerular Filtration Rate 75.2 mL/min (90-130); Magnesium 1.8 mg/dL (1.7-2.3); Osmolality Calculated 295 mOsm/kg (285-295); Phosphorus 2.3 mg/dL (2.5-4.5); Total Bilirubin 0.5 mg/dL (0.15-1.2); Total Protein 6.1 g/dL (6.6-8.7)
[2023-08-17 07:43] VITALS: O2SAT 96
[2023-08-17] MEDS: hyDROXYzine 25 mg Capsule PO (08:13)
[2023-08-17] MEDS: citalopram 20 mg Tablet 10 MG PO (08:13)
[2023-08-17] MEDS: pantoprazole DR 40 mg Tablet PO (08:13)
[2023-08-17] MEDS: propranolol 40 mg Tablet 20 MG PO (08:13)
[2023-08-17 09:49] LABS: C Reactive Protein 33.3 mg/L (0.0-4.9)
[2023-08-17 09:50] VITALS: BP 165/92; PULSE 71; RESP 18; TEMP 36.4; O2SAT 98
[2023-08-17 09:55] LABS: Procalcitonin 0.08 ng/mL (0-0.5)
--- NOTE | 2023-08-17 10:04 | PC.NURSE ---
DISCHARGE SUMMARY Patient was upset this morning, stating that he is in severe pain. His treatment at home is typically constant hot showers and warming himself up with a blow dryer in bed. Coworkers overnight educated him on not using blow dryer in bed d/t fire risk, which aggravated him. He called his sister and asked for her to come pick him up and stated he was leaving AMA. I presented to the room and actually caught Dr. Benton as he was leaving. He states that he is going to d/c the patient, he just needs a f/u appointment made with Dr. Lau. Referral sent by CONRAD Velarde and documented on d/c education. Patient's sister is present in the room as I d/c'd IV to right forearm. Patient tolerated procedure well but was notably moving frequently and guarding in general. I reviewed all d/c education with patient as well as his sister, including: all medications including stopping ibuprofen, d/c appointment with Dr. Rae and referral made to Oncology, highlighted Med/Surg contact number as well as physician contact numbers, and reviewed all attached education, including hypokalemia, generalized anxiety disorder, leukocytosis, and abdominal pain (s/s of severe side effects, when to call the physician, and methods to alleviate common s/s). Patient's sister verbalized understanding of all instructions and she requested that Dr. Lau's office call her for the referral appointment. After ensuring patient's safe d/c in w/c with sister, CONRAD Velarde called and let Dr. Lau's office know to please call the sister, Amy Dhaliwal, at . She denied any further questions or concerns. VS obtained at d/c with BP result of 165/92, however this is chronic for patient and he has been frustrated this morning d/t inability to constantly be in the shower and use his blow dryer for warmth. I notified Dr. Benton of BP result, no changes made.
--- NOTE | 2023-08-17 10:36 | PM.DCS ---
Discharge Providers Date of Admission: 08/15/23 12:26 Date of Discharge: August 17, 2023 Attending Provider at Admission: Sho Zelaya MD Attending Provider at Discharge: Lavelle Benton MD Primary Care Provider: Chey Rae MD Diagnoses at Discharge Discharge Diagnosis (1) Hypokalemia: Status: Resolved (2) Abdominal pain: Status: Acute Qualifiers: Abdominal location: generalized Qualified Code(s): R10.84 - Generalized abdominal pain (3) Leukocytosis: Status: Acute (4) Hyperventilation: Status: Acute (5) Essential hypertension: Status: Chronic (6) Generalized anxiety disorder: Status: Chronic (7) EDWAR (iron deficiency anemia): Status: Acute Qualifiers: Iron deficiency anemia type: chronic blood loss Qualified Code(s): D50.0 - Iron deficiency anemia secondary to blood loss (chronic) (8) GERD (gastroesophageal reflux disease): Status: Chronic (9) Chronic kidney disease: Status: Chronic Qualifiers: Chronic kidney disease stage: stage 2 (mild) Qualified Code(s): N18.2 - Chronic kidney disease, stage 2 (mild) (10) Hep C w/o coma, chronic: Status: Chronic Permanent problem details: history of treatment (11) Cannabis use disorder: Status: Acute (12) Tobacco use disorder, moderate, dependence: Status: Chronic (13) Alcohol use disorder in remission: Status: Chronic Permanent problem details: as of 12/2022 Reason for Visit Reason for Visit: anxiety Hospital Course Hospital Course Jack Dhaliwal is a 62 year old male who presented to the emergency room with chief complaint of falling apart and being worn down . He has a history of irritable bowel syndrome with what sounds like predominantly diarrhea. He has been having increased abdominal pain lately worse than usual. It is generalized but most prominent in left-sided quadrants upper more than lower. He describes it as severe, rating it a 9 out of 10. It is crampy in nature. In addition he has had increase in nausea with intermittent vomiting and increased frequency of belching. No hematemesis or coffee-ground emesis. He is unsure if he has had chest pain but points to his left upper abdomen is an area that is achy. He has had back pain along with this. The only thing that seems to have really helped him has been a hot shower providing only temporary relief while he is under the hot water. He has goodies and ibuprofen on his home medication list but says he does not take them very often because they tear up my stomach . Denies daily use. The only morning medicine he took today was his Prevacid but it really did nothing to help him. He has liquid stools that he describes as black tar in color. He has had this previously and underwent EGD and colonoscopy in December of this year. EGD showed upper esophageal varices without active bleeding. He has known iron deficiency anemia secondary to chronic GI losses from available information. He denies any urinary frequency or dysuria. No report of any fever. He has had some weight loss but unclear how much. Looking at available records weight has fluctuated from generally 61 to 71 kg this year. He continues to smoke some cigarettes every day. He reports occasional marijuana use. He quit drinking in December of this year and has maintained that abstinence. He is quite anxious because of all of the symptoms that he is experiencing. When asked if current presentation is similar to prior issues with porphyria, he indicates that bleeding in the skin is the primary problem that he has with that. Denies GI or other intermittent symptoms associated with that diagnosis. He has felt short of breath and at times hyperventilating as a means of controlling his symptoms of nausea and discomfort. The back pain he describes is not new. He is followed at pain clinic and last received steroid trigger point injections in early July in 4 muscle groups. Work-up in the emergency room today revealed hypokalemia with potassium of 2.9. He received some IV fluids and oral potassium replacement, along with some lorazepam and hydroxyzine. Initial plan was for discharge home but recheck potassium level was down to 2.5. Request was made for observation admission for continued potassium replacement and work-up as indicated. Patient was hypertensive in the emergency room which he attributes to anxiety and not taking his medications. Lipase was checked and was normal. Liver enzymes were normal. Hemoglobin was within a similar range to prior values this year. White count was elevated by automated differential. An ABG was done showing 7.62/19.7/83/20.2. Blood glucose was slightly elevated. No history of diabetes. Alcohol and salicylate levels were not elevated. At the time of my evaluation, patient is wanting something to knock him out so that he will feel better. He is cooperative and history is obtained from him. Patient was admitted to [facility] due to fatigue, malaise, with dehydration, received IV fluids, received potassium replacement overall clinically improved, he is Hemoccult stool was positive for blood, we discussed him following up with general surgery as outpatient for consideration of repeat EGD and colonoscopy. Also has evidence of iron deficiency anemia, follow-up with general surgery as outpatient for consideration of EGD and colonoscopy. Patient was advised if he has any blood or black stools to go to the emergency room Patient was also found to have 1. Hypoechoic mass in the RIGHT lobe of the liver measures 3.0 x 2.5 x 2.3 cm. Suspicious for metastatic or primary hepatic neoplasm until proven otherwise. Consider colonoscopy and follow-up PET/CT imaging. Mass is new since 01/10/2023. -I had a detailed discussion with patient about these ultrasound findings, ? He has a history of hepatitis C, reports being treated many years ago ? She does report history of alcoholism, but has not had a drink in over 6 months, ? I have advised him to follow-up with oncology as outpatient for consideration of biopsy and PET scanning, he voiced understanding, all questions answered, Patient's blood pressures were elevated during his hospitalization, on the morning of 08/17/2023, I had recommended for him to stay as inpatient to monitor his blood pressure and titration of his p.o. blood pressure medications but he was adamant about going home, his IV had been removed, as he was adamant about going home, he had threatened to leave AGAINST MEDICAL ADVICE, I discussed the morbidity and mortality associate with hypertension, risk of including but not limited to CVA, CAD, however he is adamant about going home, I advised him to continue his blood pressure medications for now, see primary care provider in the next 24 to 48 hours to titrate his blood pressure medications. If any chest pain, palpitations strokelike symptoms to go to the emergency room. Follow-up with primary care provider 20 for 48 hours for blood pressure monitoring Patient did have a low-grade fever during the night, I have ordered blood cultures, urinalysis, inflammatory markers Pro-Tyler 0.08 CRP 33.3, I have recommended for patient to stay as inpatient so I can work-up his fevers, discussed morbidity mortality associated with infections, fevers, septic shock, he voiced understanding, all Qs answered however he is adamant about going home, he did not want to stay in the hospital anymore, and threatened to leave AGAINST MEDICAL ADVICE, so I discharged him home, I advised him to monitor for fevers if any symptomatology to come back to emergency room I discussed with him his anemia hemoglobin 8.2, evidence of iron deficient anemia, have his primary care provider recheck his hemoglobin 2448 hrs., if he has any bloody or black stools lightheadedness or dizziness to go to emergency room Physical Exam Const: COMMON NORMALS: no acute distress and patient oriented x3 Resp: COMMON NORMALS: normal respiratory effort, No retractions, No use of accessory muscles and clear to auscultation bilaterally AUSCULTATION: clear to auscultation bilaterally Cardio: COMMON NORMALS: regular rate, regular rhythm, S1 normal heart sound present and S2 normal heart sound present RATE: regular rate RHYTHM: regular rhythm HEART SOUNDS: S1 normal heart sound present and S2 normal heart sound present GI: COMMON NORMALS: Normal to inspection, nondistended, normoactive bowel sounds present and non-tender Extremity: COMMON NORMALS: no pedal edema Neuro: COMMON NORMALS: patient oriented x3 Psych: COMMON NORMALS: mental status grossly normal Discharge Data Studies Completed and Pending Completed Studies During Hospitalization Category Date Time Status CT abdomen pelvis wo con [id number] Stat Cat Scan 08/16/23 09:16 Completed CXRP [XR chest 1V portable [id number]] Routine Exams 08/15/23 17:57 Completed US liver [id number] Stat Ultrasound 08/16/23 11:14 Completed Pending at discharge Category Date Time Status Clostridium Difficile PCR Routine Lab 08/15/23 15:00 Ordered Clostridium Difficile PCR Routine Lab 08/17/23 08:52 Ordered Immunochemical Fecal OCB Routine Lab 08/15/23 15:00 Ordered Immunochemical Fecal OCB Routine Lab 08/17/23 08:52 Ordered Lactoferrin Routine Lab 08/15/23 15:00 Ordered Lactoferrin Routine Lab 08/17/23 08:52 Ordered OVA and Parasites, Conc and PE Routine Lab 08/15/23 15:00 Ordered OVA and Parasites, Conc and PE Routine Lab 08/17/23 08:52 Ordered Salmonella / Shigella / Campy Routine Lab 08/15/23 15:00 Ordered Salmonella / Shigella / Campy Routine Lab 08/17/23 08:52 Ordered Urinalysis Routine Lab 08/15/23 14:45 Ordered Radiology Impressions Chest X-Ray 08/15/23 17:57 IMPRESSION: No acute findings. Laboratory Results WBC 5.56 10^3/uL (3.29-11.43) 08/17/23 06:02 RBC 3.53 10^6/uL (3.85-5.65) L 08/17/23 06:02 Hgb 8.20 g/dL (11.27-16.99) L 08/17/23 06:02 Hct 27.5 % (37-53) L 08/17/23 06:02 MCV 77.9 fl (82-101) L 08/17/23 06:02 MCH 23.2 pg (27-33) L 08/17/23 06:02 MCHC 29.8 g/dL (30-55) L 08/17/23 06:02 RDW 19.2 % (12.1-15.1) H 08/17/23 06:02 Plt Count 202 10^3/cmm (157-399) 08/17/23 06:02 MPV 10.1 fL (7.4-10.4) 08/17/23 06:02 Neut % (Auto) 70.1 % 08/17/23 06:02 Lymph % (Auto) 14.9 % 08/17/23 06:02 [place] % (Auto) 14.0 % 08/17/23 06:02 Eos % (Auto) 0.2 % 08/17/23 06:02 Baso % (Auto) 0.4 % 08/17/23 06:02 Neut # (Auto) 3.90 10^3/uL (1.8-7.7) 08/17/23 06:02 Lymph # (Auto) 0.8 10^3/uL (0.8-4.8) 08/17/23 06:02 [place] # (Auto) 0.8 10^3/uL (0.2-0.9) 08/17/23 06:02 Eos # (Auto) 0.0 10^3/uL (0.0-0.8) 08/17/23 06:02 Baso # (Auto) 0.0 10^3/uL (0.0-0.1) 08/17/23 06:02 Nucleated RBC % (auto) 0 % 08/17/23 06:02 Nucleated RBCs # 0.0 /100WBC 08/17/23 06:02 ESR 47 mm/hr (0-10) H 08/15/23 15:18 PT 13.20 SECONDS (12.1-14.9) 08/15/23 08:51 INR 0.97 (0.8-1.2) 08/15/23 08:51 APTT 28.2 SECONDS (23.9-36.7) 08/15/23 08:51 Specimen Type Arterial 08/15/23 08:48 Sample Site Brachial, left 08/15/23 08:48 ABG pH 7.62 (7.35-7.45) H* 08/15/23 08:48 ABG pCO2 19.7 mmHg (35-45) L* 08/15/23 08:48 ABG pO2 83.0 mmHg (80.0-100.0) 08/15/23 08:48 ABG PO2/FiO2 Ratio 0 08/15/23 08:48 ABG HCO3 20.2 mmol/L (22-26) L 08/15/23 08:48 ABG O2 Saturation 98.0 08/15/23 08:48 ABG Base Excess 0.3 mmol/L (-2.0-2.0) 08/15/23 08:48 Hernandez Test N/a 08/15/23 08:48 A-a O2 Gradient 5.2 mmHg (5-10) 08/15/23 08:48 Hematocrit 32.2 % (42-52) L 08/15/23 08:48 Hgb O2 Saturation 96.3 % (95-100) 08/15/23 08:48 Carboxyhemoglobin 1.2 %THgb (0.4-20.1) 08/15/23 08:48 Methemoglobin 0.5 % (0.4-1.5) 08/15/23 08:48 Total Hemoglobin 10.5 g/dL (14-18) L 08/15/23 08:48 Sodium 141.0 mmol/L (131-143) 08/15/23 08:48 Potassium 2.6 mmol/L (3.5-5.0) L 08/15/23 08:48 Glucose 147.0 mg/dL (70-115) H 08/15/23 08:48 Ionized Calcium 1.2 mmol/L (1.1-1.4) 08/15/23 08:48 O2 Delivery Device Room air 08/15/23 08:48 FiO2 21.0 % 08/15/23 08:48 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2) 08/15/23 15:18 Calcium 8.9 mg/dL (8.5-10.5) 08/17/23 06:02 Phosphorus 2.3 mg/dL (2.5-4.5) L 08/17/23 06:02 Magnesium 1.8 mg/dL (1.7-2.3) 08/17/23 06:02 Iron 15 ug/dL (59-158) L 08/16/23 05:55 Ferritin 33 ng/mL (30-400) 08/16/23 05:55 Total Bilirubin 0.5 mg/dL (0.15-1.2) 08/17/23 06:02 AST 17 U/L (0-40) 08/17/23 06:02 ALT 10 U/L (0-41) 08/17/23 06:02 Alkaline Phosphatase 57 U/L (40-130) 08/17/23 06:02 Troponin T 5th Gen ng/L 18 ng/L (0-15) H 08/16/23 05:55 C-Reactive Protein 33.3 mg/L (0.0-4.9) H 08/17/23 06:02 Total Protein 6.1 g/dL (6.6-8.7) L 08/17/23 06:02 Albumin 3.1 g/dL (3.5-5.2) L 08/17/23 06:02 Globulin 3.0 g/dL (1.3-4.6) 08/17/23 06:02 Lipase 23 U/L (13-60) 08/15/23 08:51 Tumor Marker AFP 1.9 ng/mL (0-8.3) 08/16/23 05:55 Procalcitonin 0.08 ng/mL (0-0.5) 08/17/23 06:02 Salicylates 0.6 mg/dL (3-10) L 08/15/23 08:51 Acetaminophen < 5.0 ug/mL (10-30) L 08/15/23 08:51 Ethyl Alcohol < 10 mg/dL (0-10) 08/15/23 08:51 Vitals Last Vital Signs Temp 97.6 F 08/17/23 09:50 Pulse 71 08/17/23 09:50 Resp 18 08/17/23 09:50 BP 165/92 08/17/23 09:50 Pulse Ox 98 08/17/23 09:50 O2 Del Method Room Air 08/17/23 07:43 Discharge Plan Discharge Patient Disposition: Home Condition: Stable Prescriptions: Continued lansoprazole [Prevacid 24Hr] 15 mg capsule,delayed release(DR/EC) 15 mg PO QAM propranolol 40 mg tablet 20 mg PO BID Qty: 60 0RF Goody's Extra Strength 520-260-32.5 mg Powder In Packet 1 packet PO DAILY PRN (Reason: Pain) citalopram 10 mg tablet 10 mg PO DAILY amlodipine 5 mg tablet 5 mg PO QAM gabapentin 300 mg capsule 300 mg PO BEDTIME Discontinued ibuprofen 200 mg Tablet 600 mg PO Q6H PRN (Reason: Pain) Discharge Orders: Discharge Order (Routine); Ordered 08/17/23 Ordered By: Lavelle Benton Referrals: Chey Rae MD [Primary Care Provider] - 08/23/23 12:00 pm Matt Wilson MD [Hospitalist] - 1-3 days (sent referral for appointment ,DR WILSON OFFICE WILL CALL WITH APPOINTMENT) Discharge Diet: Usual diet Discharge Activity: Increase activity as tolerated Patient Instructions: Generalized Anxiety Disorder, Hypokalemia (GEN), Acute Abdominal Pain (GEN), Leukocytosis (GEN), Opioid Safety, Pain Management Activity Restrictions/Additional Instructions: Thank you for choosing [facility]! If you have any questions, concerns, or worsening symptoms, please call the Med/Surg floor and ask to speak with the Charge Nurse at the following number: . Please present to the ER with any severe symptoms. Discharge Attestations Time Spent in Discharge Care*: greater than 30 min Status at Discharge: Cognitive status at discharge: cognitively intact, Behavioral status at discharge: cooperative, Quality Metrics Clinical Quality Measures [ No reported AMI, CVA or VTE this stay] Coding Level of Care Code Acute Code for Chg Fwd Diagnoses Hypokalemia E87.6 Generalized abdominal pain R10.84 Abdominal location: generalized Leukocytosis D72.829 Hyperventilation R06.4 Essential hypertension I10 Generalized anxiety disorder F41.1 Iron deficiency anemia due to chronic blood loss D50.0 Iron deficiency anemia type: chronic blood loss GERD (gastroesophageal reflux disease) K21.9 Stage 2 chronic kidney disease N18.2 Chronic kidney disease stage: stage 2 (mild) Hep C w/o coma, chronic B18.2 Cannabis use disorder F12.90 Tobacco use disorder, moderate, dependence F17.200 Alcohol use disorder in remission F10.91
== END 2023-08-17 09:55 | disposition home or self-care (01) ==
LOC: ER 10:54 → MEDSURG 16:52 → ER IP 08-16 10:39
PROVIDERS: Admitting Provider Hospitalist; Emergency Provider Family Medicine; PCP Family Medicine; Visit Provider Family Medicine
DX: E87.6 Hypokalemia (principal); R10.84 Generalized abdominal pain; D72.829 Elevated white blood cell count, unspecified; R06.4 Hyperventilation; I12.9 Hypertensive chronic kidney disease with stage 1 through stage 4 chronic kidney disease, or unspecified chronic kidney disease; N18.2 Chronic kidney disease, stage 2 (mild); F41.1 Generalized anxiety disorder; D50.0 Iron deficiency anemia secondary to blood loss (chronic); K21.9 Gastro-esophageal reflux disease without esophagitis; F12.90 Cannabis use, unspecified, uncomplicated; F10.91 Alcohol use, unspecified, in remission; F17.210 Nicotine dependence, cigarettes, uncomplicated; Z86.19 Personal history of other infectious and parasitic diseases; R73.9 Hyperglycemia, unspecified
CPT/HCPCS: 36415; 36600; 71045; 74176; 76705; 80048; 80051; 80053; 80307; 82105; 82330; 82728; 82805; 83036; 83540; 83605; 83690; 83735; 84100; 84132; 84145; 84484; 85025; 85610; 85651; 85730; 86140; 93005; 96361; 96374; 96376; 99285; C9113; G0378; J2060; J2405; J3480; J7030; J8498

== ENCOUNTER 2023-08-19 11:53 | Outpatient (CLI) | payer OTHER, MEDICAID, SELFPAY ==
--- NOTE | 2023-08-19 11:45 | MR_ITS ---
WS: [id number] MRI LUMBAR SPINE NONCONTRAST TECHNIQUE: Sagittal T1, T2 and STIR imaging. Axial T1 and T2 imaging. CLINICAL INFORMATION: M54.9 - Dorsalgia, unspecified COMPARISON: None. FINDINGS: Mild lumbar curve. No acute compression. Slight retrolisthesis L1 on L2 and L2 on L3. L1-L2: Mild annular bulging with slight narrowing LEFT subarticular recess. Mild facet arthropathy. S andrew canal and foramen are patent. L2-L3: Slight retrolisthesis. Mild disc bulging with osteophytic ridging. Slight impingement LEFT sub articular recess. Mild facet arthropathy. LEFT foraminal protrusion with mild LEFT foraminal narrowin g. RIGHT foramen is patent. Mild facet arthropathy. L3-L4: Mild disc bulging with slight impingement on the traversing RIGHT L4 nerve root in the subarti cular recess. Small RIGHT subarticular protrusion. Mild facet arthropathy. Mild LEFT foraminal narrow ing. L4-L5: Shallow central disc protrusion. Slight impingement traversing L5 nerve roots bilaterally. Mil d facet arthropathy. Small bilateral foraminal protrusions with moderate RIGHT greater than LEFT fora tommie narrowing. L5-S1: Mild disc bulging with a tiny annular fissure. Spinal canal is patent. Mild facet arthropathy. Moderate to severe RIGHT foraminal narrowing impinges the exiting RIGHT L5 nerve root. Mild LEFT for aminal narrowing. Mild facet arthropathy. Visualized pelvic bony structures: Normal. Paravertebral soft tissues: Normal. Adrenal glands are normal. Mild central canal stenosis in the cervical spine on the chute operator imaging at C4-C6. IMPRESSION: 1. Mild lumbar curve. No acute compression. 2. Moderate to severe RIGHT L5-S1 foraminal narrowing impinges the exiting RIGHT L5 nerve root. 3. Moderate RIGHT L4-5 foraminal narrowing impinges the exiting RIGHT L4 nerve root. 4. Shallow RIGHT paracentral protrusion L3-4 impinges the traversing L4 nerve root in the subarticul ar recess. 5. Narrowing of the LEFT L2-3 subarticular recess with mild LEFT foraminal narrowing. 6. Mild to moderate facet arthropathy L4-L5 and L5-S1.
== END 2023-08-19 11:54 | disposition home or self-care (01) ==
LOC: RAD 11:53
PROVIDERS: PCP Family Medicine; Visit Provider Anesthesiology Pain Medicine
DX: M54.9 Dorsalgia, unspecified (principal); M47.817 Spondylosis without myelopathy or radiculopathy, lumbosacral region; M43.16 Spondylolisthesis, lumbar region; M51.36 Other intervertebral disc degeneration, lumbar region
CPT/HCPCS: 72148

== ENCOUNTER 2023-09-07 15:44 | Oncology outpatient (recurring) (ONCR) | payer OTHER, MEDICAID, SELFPAY ==
[2023-08-24 10:23] LABS: Basophils # 0.1 10^3/uL (0.0-0.1); Basophils % 1.4 %; Eosinophils # 0.2 10^3/uL (0.0-0.8); Eosinophils % 3.5 %; Hematocrit 31.5 % (37-53); Lymphocytes # 1.9 10^3/uL (0.8-4.8); Lymphocytes % 36.6 %; Mean Corpuscular HGB Conc 30.8 g/dL (30-55); Mean Corpuscular Hemoglobin 23.4 pg (27-33); Mean Corpuscular Volume 76.1 fl (82-101); Mean Platelet Volume 8.9 fL (7.4-10.4); Monocytes # 0.4 10^3/uL (0.2-0.9); Monocytes % 8.1 %; Neutrophils # 2.54 10^3/uL (1.8-7.7); Nucleated Red Blood Cells % 0 %; Platelet Count 408 10^3/cmm (157-399); Red Blood Count 4.14 10^6/uL (3.85-5.65); Reticulocyte % 1.6 % (0.5-2.0); White Blood Count 5.08 10^3/uL (3.29-11.43)
[2023-08-24 10:44] LABS: Alanine Aminotransferase 10 U/L (0-41); Albumin Level 3.6 g/dL (3.5-5.2); Alkaline Phosphatase 72 U/L (40-130); Anion Gap 14.1 (5-19); Aspartate Amino Transferase 14 U/L (0-40); Blood Urea Nitrogen 6 mg/dL (8-23); Calcium 9.2 mg/dL (8.5-10.5); Carbon Dioxide 27 mmol/L (22-29); Chloride 98 mmol/L (98-107); Ferritin 26 ng/mL (30-400); Globulin 3.7 g/dL (1.3-4.6); Glucose 136 mg/dL (65-115); Iron 16 ug/dL (59-158); Lactate Dehydrogenase 166 U/L (135-225); Osmolality Calculated 282 mOsm/kg (285-295); Potassium 3.1 mmol/L (3.5-5.1); Sodium 136 mmol/L (136-145); Total Bilirubin 0.3 mg/dL (0.15-1.2); Total Iron Binding Capacity 318 mcg/dl; Total Protein 7.3 g/dL (6.6-8.7); Unsaturated Iron Binding 302 ug/dL (112-347)
[2023-08-24 11:00] LABS: Vitamin B12 329 pg/mL (232-1245)
[2023-08-24 11:25] LABS: Folate Level 4.7 ng/mL (4.5-32.2)
[2023-09-02 08:26] VITALS: BP 133/85; PULSE 80; RESP 17; TEMP 36.3; O2SAT 100
[2023-09-02] MEDS: sodium chloride 0.9% 250 ML 75 ML IV (08:32)
[2023-09-02] MEDS: iron sucrose 200 MG in sodium chloride 0.9% (100 ml) 100 ML 220 MG IV (08:53)
[2023-09-02 09:47] VITALS: BP 150/90; PULSE 64; RESP 17; TEMP 36; O2SAT 100
[2023-09-06] MEDS: iron sucrose 200 MG in sodium chloride 0.9% (100 ml) 100 ML 220 MG IV (09:12)
[2023-09-06 09:19] VITALS: BP 142/88; PULSE 68; RESP 18; TEMP 36.4; O2SAT 99
[2023-09-06 09:57] VITALS: BP 149/81; PULSE 60; RESP 18; TEMP 36.6; O2SAT 99
== END 2023-09-11 23:59 | disposition home or self-care (01) ==
PROVIDERS: PCP Family Medicine; Visit Provider Internal Medicine Hematology & Oncology
DX: E87.6 Hypokalemia (principal); D50.8 Other iron deficiency anemias; R16.0 Hepatomegaly, not elsewhere classified; Z79.899 Other long term (current) drug therapy
CPT/HCPCS: 80053; 82378; 82607; 82728; 82746; 83540; 83550; 83615; 85025; 85045; 96365; J1756; J7050

== ENCOUNTER 2023-09-14 14:09 | Outpatient (CLI) | payer OTHER, MEDICAID, SELFPAY ==
--- NOTE | 2023-09-14 14:30 | MRR_ITS ---
PROCEDURE INFORMATION: Exam: MR Abdomen Without Contrast Exam date and time: 09/14/2023 2:41 PM Age: 62 years old Clinical indication: Condition or disease; Liver condition; Hepatomegaly or mass; Additional info: Mass on the liver TECHNIQUE: Imaging protocol: Magnetic resonance imaging of the abdomen without contrast. COMPARISON: 1. CT abdomen pelvis wo con [id number] 08/16/2023 10:25 AM 2. US liver [id number] 08/16/2023 11:[address] angio abdomen pelvis [id number] 01/05/2021 12:[address] abdomen pelvis w con* [id number] 05/19/2020 8:05 AM FINDINGS: Liver: Mass in the posterior right liver with circumscribed border measures 3.0 cm x 2.8 cm. There is a T1 hypointense signal intensity rim on T1 weighted noncontrast imaging which may represent encapsulation. The lesion is heterogeneous, predominantly hyperintense on T2 weighted imaging. The lesion is relatively isointense on precontrast T1 weighted imaging with early enhancement features showing a large degree of washout on the delayed contrast enhanced sequences with some remaining peripheral rim enhancement. Negative for hepatomegaly. Gallbladder and bile ducts: Unremarkable. No stones. No ductal dilation. Pancreas: Unremarkable. No ductal dilation. Spleen: Unremarkable. No splenomegaly. Adrenal glands: Unremarkable. No mass. Kidneys and ureters: Unremarkable. No solid mass. No hydronephrosis. Stomach and bowel: Visualized stomach and intestines are unremarkable. Intraperitoneal space: Negative for intraperitoneal fluid. Vasculature: Hepatic veins are patent. Portal venous system patent and unremarkable. Normal abdominal aorta. Patent IVC. Bones/joints: Unremarkable bone marrow signal. Soft tissues: Unremarkable. MR/MR abdomen wo/w con* [id number] IMPRESSION: Circumscribed enhancing right hepatic lobe mass is new from the multiple remote contrast-enhanced comparison imaging studies raising suspicion for neoplasm such as hepatocellular carcinoma.
[2023-09-14] MEDS: gadobenate dimeglumine 20 mL vial IV (15:25)
== END 2023-09-14 14:10 | disposition home or self-care (01) ==
PROVIDERS: PCP Family Medicine; Visit Provider Internal Medicine Hematology & Oncology
DX: R16.0 Hepatomegaly, not elsewhere classified (principal)
CPT/HCPCS: 74183; A9577

== ENCOUNTER 2023-09-20 11:03 | Outpatient (CLI) | payer OTHER, MEDICAID, SELFPAY ==
[2023-09-20 11:50] VITALS: BP 157/101; PULSE 67; RESP 16; TEMP 36.1; O2SAT 99; BMI 22.7
[2023-09-20] MEDS: sodium chloride 0.9% 1,000 ML 30 ML IV (11:55)
[2023-09-20 12:05] LABS: INR 0.93 (0.8-1.2)
--- NOTE | 2023-09-20 12:45 | US_ITS ---
WS: [id number] RIGHT UPPER QUADRANT ULTRASOUND HISTORY: Mass on the liver, patient presents for biopsy of liver mass. COMPARISON: 08/16/2023 and 09/14/2023 MRI. The hypoechoic mass in the superior RIGHT lobe of the liver is identified by ultrasound. This mass is encased by the hepatic vein and the portal vein. Despite numerous attempts to avoid these larger ves sels it was not possible. I did explain this to the patient. IMPRESSION: 1. Unsuccessful attempt at ultrasound-guided biopsy of the liver mass. This mass is encased by the po rtal vein and hepatic veins. Hepatic surgical evaluation or interventional radiology may provide sandra tional help with biopsy. Notified Dr. Lau at 09/20/2023 1:46 PM.
[2023-09-20 12:49] VITALS: BP 167/90; PULSE 68; RESP 22; TEMP 36.8; O2SAT 100
[2023-09-20] MEDS: fentaNYL 50 mcg/mL INJ 2mL 25 MCG IVP (12:49)
[2023-09-20] MEDS: midazolam 1 mg/mL INJ 2 mL IVP (12:50)
[2023-09-20 12:54] VITALS: BP 157/91; PULSE 65; RESP 20; O2SAT 100
[2023-09-20 12:59] VITALS: BP 153/87; PULSE 67; RESP 18; O2SAT 100
[2023-09-20 13:04] VITALS: BP 156/95; PULSE 63; RESP 22; O2SAT 100
[2023-09-20 13:06] VITALS: BP 159/91; PULSE 63; RESP 18; TEMP 37.1; O2SAT 100
== END 2023-09-20 13:28 | disposition home or self-care (01) ==
LOC: GILAB 11:03
PROVIDERS: Radiology Diagnostic Radiology; PCP Family Medicine; Visit Provider Internal Medicine Hematology & Oncology
DX: R16.0 Hepatomegaly, not elsewhere classified (principal)
CPT/HCPCS: 36415; 47000; 76705; 76942; 85610; 96374; 96375; 99152; J2250; J3010; J7030

== ENCOUNTER 2023-10-11 13:00 | Oncology outpatient (recurring) (ONCR) | payer OTHER, MEDICAID, SELFPAY ==
[2023-09-13] MEDS: iron sucrose 200 MG in sodium chloride 0.9% (100 ml) 100 ML 220 MG IV (08:55)
[2023-09-13 09:37] VITALS: BP 155/87; PULSE 57; RESP 18; TEMP 36.6; O2SAT 92
[2023-09-15 09:01] VITALS: BP 149/85; PULSE 68; RESP 18; TEMP 36.1; O2SAT 99
[2023-09-15] MEDS: iron sucrose 200 MG in sodium chloride 0.9% (100 ml) 100 ML 220 MG IV (09:07)
[2023-09-15 09:42] VITALS: BP 147/89; PULSE 59; RESP 18; TEMP 36.6; O2SAT 99
[2023-09-19 08:09] VITALS: BP 147/90; PULSE 75; RESP 16; TEMP 36.7; O2SAT 97
[2023-09-19] MEDS: sodium chloride 0.9% 250 ML 75 ML IV (08:44)
[2023-09-19] MEDS: iron sucrose 200 MG in sodium chloride 0.9% (100 ml) 100 ML 220 MG IV (08:47)
[2023-09-19 09:49] VITALS: BP 160/85; PULSE 63; RESP 17; TEMP 36.2; O2SAT 97
[2023-10-11 13:19] LABS: Basophils # 0.1 10^3/uL (0.0-0.1); Basophils % 1.2 %; Eosinophils # 0.1 10^3/uL (0.0-0.8); Eosinophils % 2.5 %; Hematocrit 40.2 % (37-53); Lymphocytes # 1.6 10^3/uL (0.8-4.8); Lymphocytes % 35.7 %; Mean Corpuscular HGB Conc 33.3 g/dL (30-55); Mean Corpuscular Hemoglobin 28.3 pg (27-33); Mean Corpuscular Volume 84.8 fl (82-101); Mean Platelet Volume 9.5 fL (7.4-10.4); Monocytes # 0.5 10^3/uL (0.2-0.9); Monocytes % 11.5 %; Neutrophils # 2.12 10^3/uL (1.8-7.7); Neutrophils % 48.9 %; Nucleated Red Blood Cells % 0 %; Platelet Count 184 10^3/cmm (157-399); Red Blood Count 4.74 10^6/uL (3.85-5.65); White Blood Count 4.34 10^3/uL (3.29-11.43)
[2023-10-11 13:35] LABS: Alanine Aminotransferase 7 U/L (0-41); Albumin Level 3.9 g/dL (3.5-5.2); Alkaline Phosphatase 79 U/L (40-130); Anion Gap 11.6 (5-19); Aspartate Amino Transferase 17 U/L (0-40); Blood Urea Nitrogen 9 mg/dL (8-23); Calcium 9.1 mg/dL (8.5-10.5); Carbon Dioxide 28 mmol/L (22-29); Chloride 105 mmol/L (98-107); Glucose 99 mg/dL (65-115); Iron 61 ug/dL (59-158); Osmolality Calculated 291 mOsm/kg (285-295); Potassium 3.6 mmol/L (3.5-5.1); Sodium 141 mmol/L (136-145); Total Bilirubin 0.5 mg/dL (0.15-1.2); Total Iron Binding Capacity 321 mcg/dl; Total Protein 6.9 g/dL (6.6-8.7); Unsaturated Iron Binding 260 ug/dL (112-347)
[2023-10-11 13:50] LABS: Slide Review Slide Review Perform
== END 2023-10-12 23:59 | disposition home or self-care (01) ==
PROVIDERS: Internal Medicine Medical Oncology; PCP Family Medicine; Visit Provider Internal Medicine Hematology & Oncology
DX: Z53.9 Procedure and treatment not carried out, unspecified reason (principal); R16.0 Hepatomegaly, not elsewhere classified; D50.9 Iron deficiency anemia, unspecified
CPT/HCPCS: 36415; 80053; 83540; 83550; 85025; 96365; J1756; J7050

== ENCOUNTER 2024-01-10 12:56 | Oncology outpatient (recurring) (ONCR) | payer MEDICARE, OTHER, MEDICAID, SELFPAY ==
[2024-01-10 13:29] LABS: Basophils % 0.6 %; Eosinophils # 0.2 10^3/uL (0.0-0.8); Eosinophils % 3.7 %; Lymphocytes # 1.2 10^3/uL (0.8-4.8); Lymphocytes % 18.6 %; Mean Corpuscular HGB Conc 34.3 g/dL (30-55); Mean Corpuscular Volume 93.3 fl (82-101); Mean Platelet Volume 8.9 fL (7.4-10.4); Monocytes # 0.7 10^3/uL (0.2-0.9); Monocytes % 11.2 %; Neutrophils # 4.19 10^3/uL (1.8-7.7); Neutrophils % 65.1 %; Nucleated Red Blood Cells % 0 %; Platelet Count 343 10^3/cmm (157-399); Red Blood Count 3.75 10^6/uL (3.85-5.65); Red Cell Distribution Width 16.2 % (12.1-15.1); White Blood Count 6.44 10^3/uL (3.29-11.43)
[2024-01-10 13:44] LABS: Alanine Aminotransferase 17 U/L (0-41); Albumin Level 3.4 g/dL (3.5-5.2); Alkaline Phosphatase 205 U/L (40-130); Anion Gap 13.1 (5-19); Aspartate Amino Transferase 26 U/L (0-40); Blood Urea Nitrogen 7 mg/dL (8-23); Calcium 8.5 mg/dL (8.5-10.5); Carbon Dioxide 28 mmol/L (22-29); Chloride 103 mmol/L (98-107); Ferritin 68 ng/mL (30-400); Globulin 3.1 g/dL (1.3-4.6); Glomerular Filtration Rate 84.7 mL/min (90-130); Glucose 178 mg/dL (65-115); Iron 37 ug/dL (59-158); Osmolality Calculated 294 mOsm/kg (285-295); Percent Saturation 14.3 % (20-50); Potassium 3.1 mmol/L (3.5-5.1); Sodium 141 mmol/L (136-145); Total Bilirubin 0.3 mg/dL (0.15-1.2); Total Iron Binding Capacity 257 mcg/dl; Total Protein 6.5 g/dL (6.6-8.7); Unsaturated Iron Binding 220 ug/dL (112-347)
== END 2024-01-10 23:59 | disposition home or self-care (01) ==
PROVIDERS: Internal Medicine Medical Oncology; PCP Family Medicine; Visit Provider Internal Medicine Hematology & Oncology
DX: D50.8 Other iron deficiency anemias
CPT/HCPCS: 36415; 80053; 82728; 83540; 83550; 85025

== ENCOUNTER 2024-02-20 10:55 | Oncology outpatient (recurring) (ONCR) | payer MEDICARE, MEDICAID, SELFPAY ==
[2024-02-20 11:35] LABS: Basophils # 0.1 10^3/uL (0.0-0.1); Basophils % 1.3 %; Eosinophils # 0.1 10^3/uL (0.0-0.8); Eosinophils % 2.9 %; Hematocrit 38.4 % (37-53); Lymphocytes # 1.8 10^3/uL (0.8-4.8); Lymphocytes % 37.3 %; Mean Corpuscular HGB Conc 33.6 g/dL (30-55); Mean Corpuscular Hemoglobin 30.8 pg (27-33); Mean Corpuscular Volume 91.6 fl (82-101); Mean Platelet Volume 9.6 fL (7.4-10.4); Monocytes # 0.5 10^3/uL (0.2-0.9); Monocytes % 11.3 %; Neutrophils # 2.23 10^3/uL (1.8-7.7); Neutrophils % 46.8 %; Nucleated Red Blood Cells % 0 %; Platelet Count 224 10^3/cmm (157-399); Red Blood Count 4.19 10^6/uL (3.85-5.65); Red Cell Distribution Width 14.7 % (12.1-15.1); White Blood Count 4.77 10^3/uL (3.29-11.43)
[2024-02-20 11:54] LABS: Alanine Aminotransferase 22 U/L (0-41); Albumin Level 3.7 g/dL (3.5-5.2); Alkaline Phosphatase 214 U/L (40-130); Anion Gap 13.3 (5-19); Aspartate Amino Transferase 38 U/L (0-40); Blood Urea Nitrogen 11 mg/dL (8-23); Calcium 9.1 mg/dL (8.5-10.5); Carbon Dioxide 28 mmol/L (22-29); Chloride 100 mmol/L (98-107); Glucose 105 mg/dL (65-115); Iron 27 ug/dL (59-158); Osmolality Calculated 286 mOsm/kg (285-295); Percent Saturation 9.7 % (20-50); Potassium 3.3 mmol/L (3.5-5.1); Sodium 138 mmol/L (136-145); Total Bilirubin 0.3 mg/dL (0.15-1.2); Total Iron Binding Capacity 276 mcg/dl; Total Protein 6.7 g/dL (6.6-8.7); Unsaturated Iron Binding 249 ug/dL (112-347)
[2024-02-20 13:25] LABS: Tumor Marker Alpha Fetoprotein 2.8 ng/mL (0-8.3)
== END 2024-03-11 23:59 | disposition home or self-care (01) ==
PROVIDERS: PCP Family Medicine; Visit Provider Internal Medicine Medical Oncology
DX: C22.9 Malignant neoplasm of liver, not specified as primary or secondary (principal); D50.8 Other iron deficiency anemias; R16.0 Hepatomegaly, not elsewhere classified
CPT/HCPCS: 36415; 80053; 82105; 83540; 83550; 85025; 99214

== ENCOUNTER → 2024-05-30 12:59 | Outpatient (BNVA) | payer MEDICARE, MEDICAID, OTHER, SELFPAY | PROVIDERS: PCP Family Medicine; Visit Provider Family Medicine | DX: D50.8 Other iron deficiency anemias (principal); C22.9 Malignant neoplasm of liver, not specified as primary or secondary; R60.9 Edema, unspecified | CPT/HCPCS: 80053; 82105; 82728; 83550; 83880; 84443; 85025 ==

== ENCOUNTER → 2024-06-13 15:36 | Outpatient (BNVA) | payer MEDICARE, MEDICAID, OTHER, SELFPAY | PROVIDERS: PCP Family Medicine; Visit Provider Nurse Practitioner Psychiatric/Mental Health | DX: Z79.899 Other long term (current) drug therapy (principal) | CPT/HCPCS: 80307 ==

== ENCOUNTER 2024-06-14 09:15 | Oncology outpatient (recurring) (ONCR) | payer MEDICARE, MEDICAID, SELFPAY ==
--- NOTE | 2024-06-26 08:00 | CT_ITS ---
WS: [id number] LDCT LUNG CANCER SCREENING HISTORY: lung cancer screening TECHNIQUE: Axial imaging performed from the apices to 1 cm below the costophrenic angles. Coronal and sagittal reformats are submitted with axial MIP series. All CT scans at [facility] use at least one of these dose optimization techniques: automated exposure control; mA and/or kV adjustment per patient size (includes targeted exams where dose is matched to clinical indication); or iterativ e reconstruction. DLP: 64.97 mGy.cm DIvol: Mean CTDIvol: 1.10 (mGy) COMPARISON: None available. Diagnostic quality: Limited by breathing motion artifact. Lungs: Slightly spiculated solid mass measuring 7 mm in the central RIGHT upper lobe. Subpleural 3 mm tag RIGHT upper lobe. No groundglass attenuation. Heart: Normal size heart with no pericardial effusion.. Other findings: Minimal atherosclerosis aorta. Normal size pulmonary artery. No mediastinal or hilar adenopathy identified. Small hiatal hernia. Stable LEFT adrenal gland nodule since 2019. Variable den sity within the liver may be related to motion artifact. Noncontrast evaluation of the liver is very limited. Prior rib fracture with healing on the RIGHT. CT/CT lung screening [id number] IMPRESSION: LUNG-RADS: 3-Probably Benign FOLLOW UP: 6 Month LDCT OTHER FINDINGS (S MODIFIER): None.
== END 2024-07-12 23:59 | disposition home or self-care (01) ==
PROVIDERS: PCP Family Medicine; Visit Provider Family Medicine
DX: Z87.891 Personal history of nicotine dependence (principal); R91.8 Other nonspecific abnormal finding of lung field; R91.1 Solitary pulmonary nodule; I70.0 Atherosclerosis of aorta; K46.9 Unspecified abdominal hernia without obstruction or gangrene; K76.89 Other specified diseases of liver; S22.31XD Fracture of one rib, right side, subsequent encounter for fracture with routine healing; X58.XXXD Exposure to other specified factors, subsequent encounter
CPT/HCPCS: 71271

== ENCOUNTER 2024-06-14 10:41 | Oncology outpatient (recurring) (ONCR) | payer MEDICARE, MEDICAID, SELFPAY | END 2024-07-12 23:59 | disposition home or self-care (01) | PROVIDERS: PCP Family Medicine; Visit Provider Internal Medicine Hematology & Oncology | DX: C22.0 Liver cell carcinoma (principal); D50.8 Other iron deficiency anemias | CPT/HCPCS: 99213 ==

== ENCOUNTER → 2024-07-02 11:09 | Outpatient (BNVA) | payer MEDICARE, MEDICAID, SELFPAY | PROVIDERS: PCP Family Medicine; Visit Provider Family Medicine | DX: L29.9 Pruritus, unspecified (principal) | CPT/HCPCS: 80053; 84443 ==

== ENCOUNTER 2024-10-02 13:05 | Outpatient (CLI) | payer MEDICARE, MEDICAID, SELFPAY ==
--- NOTE | 2024-10-02 13:08 | CT_ITS ---
WS: [id number] CT CHEST, ABDOMEN AND PELVIS WITH AND WITHOUT CONTRAST HISTORY: LIVER CELL CARCINOMA TECHNIQUE: Contiguous 5 mm axial imaging performed through the chest, abdomen and pelvis with and wit hout IV contrast, oral contrast has not been provided. Coronal and sagittal reformats chest. Coronal and sagittal reformats through the abdomen and pelvis. All CT scans at [facility] use at leas t one of these dose optimization techniques: automated exposure control; mA and/or kV adjustment per patient size (includes targeted exams where dose is matched to clinical indication); or iterative rec onstruction. CONTRAST: Omnipaque 350; 100 mL IV. DLP: 968.46 mGy.cm COMPARISON: 06/26/2024, 08/16/2023, MRI 09/14/[address]: Micronodule at the LEFT lung base was probably present on 06/26/2024 but not as well visual ized due to breathing motion artifact. No RIGHT upper lobe nodule is identified on today's exam. No m ass or pneumonia. No pericardial or pleural effusions. Heart size is normal. Mild atherosclerosis aor ta. No mediastinal or hilar or axillary adenopathy. Abdomen CT: Heterogeneous liver. Previously described mass in the RIGHT lobe of the liver that was or iginally described on 09/14/2023 is reidentified. Mass measures 2.6 x 3.5 cm and does not significantly enhance. This mass has been treated by ablation as previously indicated. There are several new perip heral areas of scattered decreased attenuation throughout the liver. These are predominantly in the p eriphery of the RIGHT lobe of the liver. Some of these are too small to characterize. There may be mi ld enhancement. No interval exams for comparison since the prior MRI of 09/14/2023. Normal portal vein. Jose Armando hepatis lymph nodes measuring 1.7 cm at its maximum. Normal gallbladder. Normal spleen with granulomata. Normal pancreas. Normal RIGHT adrenal gland. New mass in the LEFT adrenal gland measures 2.6 x 2.6 cm. No renal obstruction. Mild atherosclerosis aort a. No mesenteric artery thrombus. Nondistended stomach. No GI tract obstruction. Distal colon diverticulosis without acute diverticulit is. Pelvic CT: No free fluid. Normally distended urinary bladder. Scoliosis thoracolumbar spine. No destructive bone lesions are identified. CT/CT ch abdpel wo/w [id number] IMPRESSION: 1. RIGHT hepatic mass previously treated by ablation is reidentified measuring 2.6 x 3.5 cm with no enhancement. 2. Numerous new small peripheral low-attenuation masses in the RIGHT lobe of t he liver. There is mild scarring and traction on the liver capsule. Cannot excl ude recurrent metastatic disease to the liver. Consider follow-up PET/CT imagin g. No recent prior imaging studies since 09/14/2023 for comparison. 3. New LEFT adrenal mass measures 2.6 x 2.6 cm suspicious for metastatic disea se. 4. LEFT jose armando hepatis lymph nodes with the largest measuring 1.7 cm. 5. No ascites. 6. No suspicious mediastinal or hilar lymphadenopathy or pulmonary metastatic nodules.
[2024-10-02 13:36] LABS: Blood Urea Nitrogen 7 mg/dL (8-23); Glomerular Filtration Rate 84.7 mL/min (90-130)
[2024-10-02] MEDS: iohexol 350 mg/mL 500 mL Btl (per mL) IV (13:48)
== END 2024-10-02 13:06 | disposition home or self-care (01) ==
LOC: RAD 13:06
PROVIDERS: PCP Family Medicine; Visit Provider Nurse Practitioner
DX: C22.0 Liver cell carcinoma (principal); Z86.19 Personal history of other infectious and parasitic diseases; R16.0 Hepatomegaly, not elsewhere classified; R93.2 Abnormal findings on diagnostic imaging of liver and biliary tract; R59.0 Localized enlarged lymph nodes; R93.89 Abnormal findings on diagnostic imaging of other specified body structures; I70.0 Atherosclerosis of aorta; D73.89 Other diseases of spleen; K57.30 Diverticulosis of large intestine without perforation or abscess without bleeding; M41.85 Other forms of scoliosis, thoracolumbar region
CPT/HCPCS: 71260; 74178; 82565; 84520

== ENCOUNTER 2024-10-11 08:10 | Oncology outpatient (recurring) (ONCR) | payer MEDICARE, MEDICAID, SELFPAY ==
[2024-10-11 08:44] LABS: Basophils # 0.1 10^3/uL (0.0-0.1); Basophils % 1.2 %; Eosinophils # 0.4 10^3/uL (0.0-0.8); Eosinophils % 6.1 %; Hematocrit 37.1 % (37-53); Lymphocytes # 1.4 10^3/uL (0.8-4.8); Lymphocytes % 23.4 %; Mean Corpuscular HGB Conc 32.6 g/dL (30-55); Mean Corpuscular Hemoglobin 29.6 pg (27-33); Mean Corpuscular Volume 90.7 fl (82-101); Mean Platelet Volume 8.8 fL (7.4-10.4); Monocytes # 0.6 10^3/uL (0.2-0.9); Monocytes % 10.1 %; Neutrophils # 3.58 10^3/uL (1.8-7.7); Nucleated Red Blood Cells % 0 %; Platelet Count 346 10^3/cmm (157-399); Red Blood Count 4.09 10^6/uL (3.85-5.65); Red Cell Distribution Width 15.4 % (12.1-15.1); White Blood Count 6.06 10^3/uL (3.29-11.43)
[2024-10-11 09:09] LABS: Tumor Marker Alpha Fetoprotein 2.1 ng/mL (0-8.3)
[2024-10-11 09:20] LABS: Alanine Aminotransferase 8 U/L (0-41); Albumin Level 3.2 g/dL (3.5-5.2); Alkaline Phosphatase 162 U/L (40-130); Anion Gap 14.6 (5-19); Aspartate Amino Transferase 13 U/L (0-40); Blood Urea Nitrogen 10 mg/dL (8-23); Calcium 8.7 mg/dL (8.5-10.5); Carbon Dioxide 25 mmol/L (22-29); Chloride 102 mmol/L (98-107); Creatinine Clr Calc Pharmacy 85.7639; Globulin 3.6 g/dL (1.3-4.6); Glomerular Filtration Rate 84.7 mL/min (90-130); Glucose 130 mg/dL (65-115); Osmolality Calculated 287 mOsm/kg (285-295); Potassium 3.6 mmol/L (3.5-5.1); Sodium 138 mmol/L (136-145); Total Bilirubin 0.3 mg/dL (0.15-1.2); Total Protein 6.8 g/dL (6.6-8.7)
[2024-10-11 09:41] LABS: Ferritin 45 ng/mL (30-400); Iron 35 ug/dL (59-158); Percent Saturation 13.1 % (20-50); Total Iron Binding Capacity 266 mcg/dl; Unsaturated Iron Binding 231 ug/dL (112-347)
== END 2024-10-12 23:59 | disposition home or self-care (01) ==
PROVIDERS: Internal Medicine; PCP Family Medicine; Visit Provider Internal Medicine Hematology & Oncology
DX: C22.0 Liver cell carcinoma (principal); C79.72 Secondary malignant neoplasm of left adrenal gland; C77.2 Secondary and unspecified malignant neoplasm of intra-abdominal lymph nodes; E80.20 Unspecified porphyria; F17.210 Nicotine dependence, cigarettes, uncomplicated; Z86.19 Personal history of other infectious and parasitic diseases; D50.8 Other iron deficiency anemias; I10 Essential (primary) hypertension; N18.9 Chronic kidney disease, unspecified; K21.9 Gastro-esophageal reflux disease without esophagitis; G31.89 Other specified degenerative diseases of nervous system; M54.2 Cervicalgia; M54.9 Dorsalgia, unspecified; G89.29 Other chronic pain; F41.8 Other specified anxiety disorders
CPT/HCPCS: 36415; 80053; 82105; 82728; 83540; 83550; 85025; 99214

== ENCOUNTER 2024-11-02 09:34 | Outpatient (CLI) | payer MEDICARE, MEDICAID, SELFPAY ==
--- NOTE | 2024-11-02 09:37 | XR_ITS ---
WS: [id number] Exam: XR cervical spine 4-5V [id number] Date/Time of Exam: 11/02/2024 9:37 AM Reason For Exam: M54.2 - Cervicalgia Comparison 05/11/2023. 3 mm degenerative anterolisthesis of C3 on C4. 3 mm degenerative retrolisthesis of C5 on C6. Prominent posterior bone spur projects along the lower endplate of C5. Facet arthropathy at all levels. Narrowing of the LEFT neural foramen at C6- 7 and C5-6 secondary to bone spurring. Narrowing of the right neural foramina at C3-4, C5-6 and C6-7 secondary to uncovertebral bone spurring. Straightening and reversal of the normal cervical C curve. The odontoid is intact. Bilateral carotid artery calcifications. Partially visualized right-sided Chemo-Port. XR/XR cervical spine 4-5V [id number] IMPRESSION: 1. Moderately advanced degenerative changes as detailed above. 2. No fracture.
== END 2024-11-02 09:35 | disposition home or self-care (01) ==
LOC: RAD 09:36
PROVIDERS: PCP Family Medicine; Visit Provider Anesthesiology Pain Medicine
DX: M47.892 Other spondylosis, cervical region (principal); M54.9 Dorsalgia, unspecified; G89.29 Other chronic pain; R93.7 Abnormal findings on diagnostic imaging of other parts of musculoskeletal system; M77.8 Other enthesopathies, not elsewhere classified; M46.02 Spinal enthesopathy, cervical region; M48.02 Spinal stenosis, cervical region; I65.23 Occlusion and stenosis of bilateral carotid arteries; Z96.89 Presence of other specified functional implants
CPT/HCPCS: 72050

== ENCOUNTER → 2024-11-05 13:43 | Outpatient (BNVA) | payer MEDICARE, MEDICAID, SELFPAY | PROVIDERS: PCP Family Medicine; Visit Provider Anesthesiology Pain Medicine | DX: M51.16 Intervertebral disc disorders with radiculopathy, lumbar region (principal); M54.2 Cervicalgia; G89.29 Other chronic pain | CPT/HCPCS: 99214 ==

== ENCOUNTER 2024-11-27 08:15 | Oncology outpatient (recurring) (ONCR) | payer MEDICARE, MEDICAID, SELFPAY ==
[2024-11-14 09:31] LABS: Reticulocyte % 1.8 % (0.5-2.0)
[2024-11-14 09:32] LABS: Basophils # 0.1 10^3/uL (0.0-0.1); Basophils % 1.1 %; Eosinophils # 0.4 10^3/uL (0.0-0.8); Eosinophils % 6.7 %; Hematocrit 37.8 % (37-53); Lymphocytes # 1.6 10^3/uL (0.8-4.8); Lymphocytes % 30.7 %; Mean Corpuscular HGB Conc 32.5 g/dL (30-55); Mean Corpuscular Hemoglobin 28.8 pg (27-33); Mean Corpuscular Volume 88.5 fl (82-101); Mean Platelet Volume 8.7 fL (7.4-10.4); Monocytes # 0.8 10^3/uL (0.2-0.9); Monocytes % 14.4 %; Neutrophils # 2.44 10^3/uL (1.8-7.7); Neutrophils % 46.7 %; Nucleated Red Blood Cells % 0 %; Platelet Count 317 10^3/cmm (157-399); Red Blood Count 4.27 10^6/uL (3.85-5.65); Red Cell Distribution Width 14.3 % (12.1-15.1); White Blood Count 5.22 10^3/uL (3.29-11.43)
[2024-11-14 09:42] LABS: Erythrocyte Sedimentation Rate 41 mm/hr (0-10)
[2024-11-14 09:47] LABS: INR 0.93 (0.8-1.2); Partial Thromboplastin Time 32.4 SECONDS (23.9-36.7)
[2024-11-14 09:52] LABS: Ferritin 34 ng/mL (30-400); Iron 30 ug/dL (59-158); Percent Saturation 7.8 % (20-50); Total Iron Binding Capacity 382 mcg/dl; Unsaturated Iron Binding 352 ug/dL (112-347)
[2024-11-14 10:06] LABS: Vitamin B12 342 pg/mL (232-1245)
[2024-11-14 10:12] LABS: Folate Level 11.6 ng/mL (4.5-32.2)
[2024-11-14 10:50] LABS: Tumor Marker Alpha Fetoprotein 1.9 ng/mL (0-8.3)
[2024-11-14 11:32] LABS: Lactate Dehydrogenase 203 U/L (135-225)
[2024-11-15] MEDS: iron sucrose 300 MG in sodium chloride 0.9% (100 ml) 100 ML 200 MG IV (09:47)
[2024-11-15 10:40] VITALS: BP 112/78; PULSE 78; RESP 17; TEMP 36.6; O2SAT 97
[2024-11-22] MEDS: iron sucrose 300 MG in sodium chloride 0.9% (100 ml) 100 ML 200 MG IV (08:54)
[2024-11-22 09:43] VITALS: BP 151/99; PULSE 101; RESP 20; TEMP 36.6; O2SAT 94
[2024-11-27 08:55] LABS: Basophils # 0.1 10^3/uL (0.0-0.1); Basophils % 0.9 %; Eosinophils # 0.4 10^3/uL (0.0-0.8); Eosinophils % 7.4 %; Hematocrit 40.9 % (37-53); Lymphocytes # 1.6 10^3/uL (0.8-4.8); Lymphocytes % 27.5 %; Mean Corpuscular HGB Conc 32.3 g/dL (30-55); Mean Corpuscular Hemoglobin 28.9 pg (27-33); Mean Corpuscular Volume 89.7 fl (82-101); Mean Platelet Volume 9.5 fL (7.4-10.4); Monocytes # 0.6 10^3/uL (0.2-0.9); Monocytes % 9.8 %; Neutrophils # 3.14 10^3/uL (1.8-7.7); Neutrophils % 54.2 %; Nucleated Red Blood Cells % 0 %; Platelet Count 286 10^3/cmm (157-399); Red Blood Count 4.56 10^6/uL (3.85-5.65); Red Cell Distribution Width 15.4 % (12.1-15.1); White Blood Count 5.79 10^3/uL (3.29-11.43)
[2024-11-27 09:08] LABS: INR 0.91 (0.8-1.2)
[2024-11-27 09:09] LABS: Partial Thromboplastin Time 32.1 SECONDS (23.9-36.7)
[2024-11-27 09:22] LABS: Alanine Aminotransferase 14 U/L (0-41); Albumin Level 3.8 g/dL (3.5-5.2); Alkaline Phosphatase 152 U/L (40-130); Anion Gap 13.4 (5-19); Aspartate Amino Transferase 18 U/L (0-40); Blood Urea Nitrogen 10 mg/dL (8-23); Calcium 9.1 mg/dL (8.5-10.5); Carbon Dioxide 25 mmol/L (22-29); Chloride 105 mmol/L (98-107); Creatinine Clr Calc Pharmacy 83.9565; Globulin 3.9 g/dL (1.3-4.6); Glomerular Filtration Rate 84.7 mL/min (90-130); Glucose 141 mg/dL (65-115); Osmolality Calculated 291 mOsm/kg (285-295); Potassium 3.4 mmol/L (3.5-5.1); Sodium 140 mmol/L (136-145); Thyroid Stimulating Hormone 0.71 uIU/mL (0.27-4.20); Total Bilirubin 0.3 mg/dL (0.15-1.2); Total Protein 7.7 g/dL (6.6-8.7)
[2024-11-27] MEDS: durvalumab 1,500 MG in sodium chloride 0.9% 250 ML 280 MG IV (11:40)
[2024-11-27] MEDS: sodium chloride 0.9% 250 ML 75 ML IV (12:58)
[2024-11-27] MEDS: SODIUM CHLORIDE 0.9% IV (13:05)
[2024-11-27] MEDS: [UNRECOGNIZED DRUG - OTHER] IV (13:05)
[2024-11-27 15:16] VITALS: BP 136/90; PULSE 79; RESP 17; TEMP 36.3; O2SAT 98
== END 2024-11-27 23:59 | disposition home or self-care (01) ==
PROVIDERS: Internal Medicine; PCP Family Medicine; Visit Provider Internal Medicine Medical Oncology
DX: Z53.9 Procedure and treatment not carried out, unspecified reason; Z51.11 Encounter for antineoplastic chemotherapy; Z51.12 Encounter for antineoplastic immunotherapy; C22.0 Liver cell carcinoma; C78.7 Secondary malignant neoplasm of liver and intrahepatic bile duct; C79.72 Secondary malignant neoplasm of left adrenal gland; I12.9 Hypertensive chronic kidney disease with stage 1 through stage 4 chronic kidney disease, or unspecified chronic kidney disease; D50.8 Other iron deficiency anemias; N18.9 Chronic kidney disease, unspecified; E80.20 Unspecified porphyria; K21.9 Gastro-esophageal reflux disease without esophagitis; K58.9 Irritable bowel syndrome, unspecified; G62.9 Polyneuropathy, unspecified; G31.89 Other specified degenerative diseases of nervous system; G89.29 Other chronic pain; Z79.891 Long term (current) use of opiate analgesic; Z79.899 Other long term (current) drug therapy
CPT/HCPCS: 36591; 80053; 82105; 82607; 82728; 82746; 83010; 83540; 83550; 83615; 84443; 85025; 85045; 85610; 85651; 85730; 96365; 96413; 96417; 99213; 99215; A4222; J1756; J7050; J9173; J9347; J9999

== ENCOUNTER 2024-12-07 09:30 | Oncology outpatient (recurring) (ONCR) | payer MEDICARE, MEDICAID, SELFPAY ==
[2024-11-29] MEDS: iron sucrose 300 MG in sodium chloride 0.9% (100 ml) 100 ML 200 MG IV (09:15)
[2024-11-29 09:52] VITALS: BP 158/94; PULSE 85; TEMP 36.8
[2024-12-07] MEDS: iron sucrose 100 MG in sodium chloride 0.9% (100 ml) 100 ML 200 MG IV (09:45)
[2024-12-07 09:49] VITALS: BP 108/69; PULSE 74; RESP 17; TEMP 36.6; O2SAT 96
[2024-12-07 10:17] VITALS: BP 130/77; PULSE 76; RESP 17; TEMP 36.8; O2SAT 98
== END 2024-12-10 23:59 | disposition home or self-care (01) ==
PROVIDERS: PCP Family Medicine; Visit Provider Internal Medicine Medical Oncology
DX: Z53.9 Procedure and treatment not carried out, unspecified reason; C22.0 Liver cell carcinoma; D50.8 Other iron deficiency anemias; Z79.899 Other long term (current) drug therapy
CPT/HCPCS: 96365; J1756; J9999

== ENCOUNTER 2024-12-25 09:00 | Oncology outpatient (recurring) (ONCR) | payer MEDICARE, MEDICAID, SELFPAY ==
[2024-12-11 13:58] LABS: Basophils # 0.1 10^3/uL (0.0-0.1); Basophils % 0.9 %; Hematocrit 43.5 % (37-53); Lymphocytes # 2.1 10^3/uL (0.8-4.8); Lymphocytes % 27.5 %; Mean Corpuscular HGB Conc 32.2 g/dL (30-55); Mean Corpuscular Volume 90.1 fl (82-101); Mean Platelet Volume 9.3 fL (7.4-10.4); Monocytes # 0.7 10^3/uL (0.2-0.9); Monocytes % 9.2 %; Neutrophils # 3.72 10^3/uL (1.8-7.7); Neutrophils % 49.1 %; Nucleated Red Blood Cells % 0 %; Platelet Count 268 10^3/cmm (157-399); Red Blood Count 4.83 10^6/uL (3.85-5.65); Red Cell Distribution Width 17.2 % (12.1-15.1); White Blood Count 7.59 10^3/uL (3.29-11.43)
[2024-12-11 14:13] LABS: Alanine Aminotransferase 22 U/L (0-41); Albumin Level 3.8 g/dL (3.5-5.2); Alkaline Phosphatase 159 U/L (40-130); Anion Gap 13.2 (5-19); Aspartate Amino Transferase 27 U/L (0-40); Blood Urea Nitrogen 13 mg/dL (8-23); Carbon Dioxide 24 mmol/L (22-29); Chloride 105 mmol/L (98-107); Globulin 3.8 g/dL (1.3-4.6); Glomerular Filtration Rate 84.7 mL/min (90-130); Glucose 116 mg/dL (65-115); Osmolality Calculated 287 mOsm/kg (285-295); Potassium 4.2 mmol/L (3.5-5.1); Sodium 138 mmol/L (136-145); Total Bilirubin 0.4 mg/dL (0.15-1.2); Total Protein 7.6 g/dL (6.6-8.7)
[2024-12-25 09:14] LABS: Basophils # 0.1 10^3/uL (0.0-0.1); Basophils % 1.6 %; Hematocrit 44.2 % (37-53); Lymphocytes % 31.7 %; Mean Corpuscular HGB Conc 32.8 g/dL (30-55); Mean Corpuscular Hemoglobin 29.6 pg (27-33); Mean Corpuscular Volume 90.2 fl (82-101); Mean Platelet Volume 9.3 fL (7.4-10.4); Monocytes # 0.8 10^3/uL (0.2-0.9); Monocytes % 12.7 %; Neutrophils # 2.48 10^3/uL (1.8-7.7); Neutrophils % 38.7 %; Nucleated Red Blood Cells % 0 %; Platelet Count 247 10^3/cmm (157-399); Red Cell Distribution Width 18.3 % (12.1-15.1)
[2024-12-25 09:40] LABS: Alanine Aminotransferase 44 U/L (0-41); Albumin Level 3.8 g/dL (3.5-5.2); Alkaline Phosphatase 197 U/L (40-130); Aspartate Amino Transferase 44 U/L (0-40); Blood Urea Nitrogen 16 mg/dL (8-23); Calcium 8.8 mg/dL (8.5-10.5); Carbon Dioxide 22 mmol/L (22-29); Chloride 104 mmol/L (98-107); Creatinine Clr Calc Pharmacy 62.7496; Globulin 3.5 g/dL (1.3-4.6); Glomerular Filtration Rate 60.6 mL/min (90-130); Glucose 119 mg/dL (65-115); Osmolality Calculated 288 mOsm/kg (285-295); Sodium 138 mmol/L (136-145); Thyroid Stimulating Hormone 0.03 uIU/mL (0.27-4.20); Total Bilirubin 0.4 mg/dL (0.15-1.2); Total Protein 7.3 g/dL (6.6-8.7)
[2024-12-25] MEDS: durvalumab 1,500 MG in sodium chloride 0.9% 250 ML 280 MG IV (11:38)
[2024-12-25 12:22] LABS: Free T4 Free Thyroxine 2.69 ng/dL (0.82-1.77); T3 Free 6.6 PG/ML (2.0-4.4)
[2024-12-25 12:40] VITALS: BP 136/85; PULSE 69; TEMP 36.4; O2SAT 98
== END 2024-12-25 23:59 | disposition home or self-care (01) ==
PROVIDERS: Nurse Practitioner Family; PCP Family Medicine; Visit Provider Internal Medicine
DX: Z53.9 Procedure and treatment not carried out, unspecified reason; Z51.12 Encounter for antineoplastic immunotherapy; C22.0 Liver cell carcinoma; C79.72 Secondary malignant neoplasm of left adrenal gland; R79.89 Other specified abnormal findings of blood chemistry; D50.8 Other iron deficiency anemias; F17.210 Nicotine dependence, cigarettes, uncomplicated; R07.89 Other chest pain; I12.9 Hypertensive chronic kidney disease with stage 1 through stage 4 chronic kidney disease, or unspecified chronic kidney disease; N18.9 Chronic kidney disease, unspecified; K21.9 Gastro-esophageal reflux disease without esophagitis; K58.9 Irritable bowel syndrome, unspecified; G62.9 Polyneuropathy, unspecified; F41.9 Anxiety disorder, unspecified; G31.89 Other specified degenerative diseases of nervous system; Z86.19 Personal history of other infectious and parasitic diseases; Z79.891 Long term (current) use of opiate analgesic; Z79.899 Other long term (current) drug therapy
CPT/HCPCS: 36591; 80053; 84439; 84443; 84481; 85025; 96413; 99214; A4222; J7050; J9173

== ENCOUNTER 2025-01-08 13:45 | Oncology outpatient (recurring) (ONCR) | payer MEDICARE, MEDICAID, SELFPAY ==
[2025-01-01 13:56] LABS: Basophils # 0.1 10^3/uL (0.0-0.1); Basophils % 1.5 %; Eosinophils # 0.8 10^3/uL (0.0-0.8); Eosinophils % 11.5 %; Hematocrit 45.2 % (37-53); Lymphocytes # 2.1 10^3/uL (0.8-4.8); Lymphocytes % 31.5 %; Mean Corpuscular HGB Conc 32.7 g/dL (30-55); Mean Corpuscular Hemoglobin 29.2 pg (27-33); Mean Corpuscular Volume 89.2 fl (82-101); Mean Platelet Volume 9.6 fL (7.4-10.4); Monocytes # 0.9 10^3/uL (0.2-0.9); Monocytes % 13.5 %; Neutrophils # 2.81 10^3/uL (1.8-7.7); Neutrophils % 41.9 %; Nucleated Red Blood Cells % 0 %; Platelet Count 235 10^3/cmm (157-399); Red Blood Count 5.07 10^6/uL (3.85-5.65); Red Cell Distribution Width 17.8 % (12.1-15.1); White Blood Count 6.72 10^3/uL (3.29-11.43)
[2025-01-01 14:16] LABS: Alanine Aminotransferase 105 U/L (0-41); Alkaline Phosphatase 179 U/L (40-130); Anion Gap 18.3 (5-19); Aspartate Amino Transferase 87 U/L (0-40); Blood Urea Nitrogen 24 mg/dL (8-23); Calcium 9.4 mg/dL (8.5-10.5); Carbon Dioxide 22 mmol/L (22-29); Chloride 106 mmol/L (98-107); Globulin 3.9 g/dL (1.3-4.6); Glucose 101 mg/dL (65-115); Osmolality Calculated 298 mOsm/kg (285-295); Potassium 4.3 mmol/L (3.5-5.1); Sodium 142 mmol/L (136-145); Total Bilirubin 0.6 mg/dL (0.15-1.2); Total Protein 7.9 g/dL (6.6-8.7)
[2025-01-08 14:08] LABS: Basophils # 0.1 10^3/uL (0.0-0.1); Basophils % 1.1 %; Eosinophils # 0.8 10^3/uL (0.0-0.8); Hematocrit 44.3 % (37-53); Lymphocytes # 1.9 10^3/uL (0.8-4.8); Mean Corpuscular HGB Conc 32.7 g/dL (30-55); Mean Corpuscular Hemoglobin 29.3 pg (27-33); Mean Corpuscular Volume 89.5 fl (82-101); Mean Platelet Volume 9.8 fL (7.4-10.4); Monocytes # 0.8 10^3/uL (0.2-0.9); Monocytes % 13.5 %; Neutrophils # 2.51 10^3/uL (1.8-7.7); Neutrophils % 41.2 %; Nucleated Red Blood Cells % 0 %; Platelet Count 260 10^3/cmm (157-399); Red Blood Count 4.95 10^6/uL (3.85-5.65); Red Cell Distribution Width 16.9 % (12.1-15.1); White Blood Count 6.09 10^3/uL (3.29-11.43)
[2025-01-08 14:34] LABS: Alanine Aminotransferase 81 U/L (0-41); Albumin Level 3.6 g/dL (3.5-5.2); Alkaline Phosphatase 180 U/L (40-130); Anion Gap 13.3 (5-19); Aspartate Amino Transferase 60 U/L (0-40); Blood Urea Nitrogen 19 mg/dL (8-23); Calcium 9.7 mg/dL (8.5-10.5); Carbon Dioxide 22 mmol/L (22-29); Chloride 109 mmol/L (98-107); Globulin 3.8 g/dL (1.3-4.6); Glomerular Filtration Rate 84.4 mL/min (90-130); Glucose 108 mg/dL (65-115); Osmolality Calculated 293 mOsm/kg (285-295); Potassium 4.3 mmol/L (3.5-5.1); Sodium 140 mmol/L (136-145); Thyroid Stimulating Hormone 0.01 uIU/mL (0.27-4.20); Total Bilirubin 0.4 mg/dL (0.15-1.2); Total Protein 7.4 g/dL (6.6-8.7)
== END 2025-01-09 23:59 | disposition home or self-care (01) ==
PROVIDERS: Nurse Practitioner Family; PCP Family Medicine; Visit Provider Internal Medicine Medical Oncology
DX: Z53.9 Procedure and treatment not carried out, unspecified reason; C22.0 Liver cell carcinoma; D50.8 Other iron deficiency anemias; I10 Essential (primary) hypertension; Z79.899 Other long term (current) drug therapy
CPT/HCPCS: 36591; 80053; 84443; 85025

== ENCOUNTER 2025-01-22 09:15 | Oncology outpatient (recurring) (ONCR) | payer MEDICARE, MEDICAID, SELFPAY ==
[2025-01-15 14:00] LABS: Basophils # 0.1 10^3/uL (0.0-0.1); Basophils % 0.9 %; Eosinophils # 0.8 10^3/uL (0.0-0.8); Eosinophils % 9.6 %; Hematocrit 44.2 % (37-53); Lymphocytes % 23.3 %; Mean Corpuscular HGB Conc 32.6 g/dL (30-55); Mean Corpuscular Hemoglobin 28.7 pg (27-33); Mean Corpuscular Volume 88.2 fl (82-101); Mean Platelet Volume 9.4 fL (7.4-10.4); Monocytes % 11.7 %; Neutrophils # 4.62 10^3/uL (1.8-7.7); Nucleated Red Blood Cells % 0 %; Platelet Count 307 10^3/cmm (157-399); Red Blood Count 5.01 10^6/uL (3.85-5.65); Red Cell Distribution Width 16.7 % (12.1-15.1); White Blood Count 8.55 10^3/uL (3.29-11.43)
[2025-01-15 14:26] LABS: Alanine Aminotransferase 53 U/L (0-41); Albumin Level 3.3 g/dL (3.5-5.2); Alkaline Phosphatase 189 U/L (40-130); Anion Gap 15.2 (5-19); Aspartate Amino Transferase 41 U/L (0-40); Blood Urea Nitrogen 28 mg/dL (8-23); Calcium 9.2 mg/dL (8.5-10.5); Carbon Dioxide 21 mmol/L (22-29); Chloride 107 mmol/L (98-107); Globulin 4.1 g/dL (1.3-4.6); Glomerular Filtration Rate 60.6 mL/min (90-130); Glucose 119 mg/dL (65-115); Osmolality Calculated 295 mOsm/kg (285-295); Potassium 4.2 mmol/L (3.5-5.1); Sodium 139 mmol/L (136-145); Thyroid Stimulating Hormone 0.01 uIU/mL (0.27-4.20); Total Bilirubin 0.3 mg/dL (0.15-1.2); Total Protein 7.4 g/dL (6.6-8.7)
[2025-01-22 09:56] LABS: Basophils # 0.1 10^3/uL (0.0-0.1); Basophils % 1.1 %; Eosinophils # 1.1 10^3/uL (0.0-0.8); Eosinophils % 14.3 %; Hematocrit 44.9 % (37-53); Lymphocytes # 1.8 10^3/uL (0.8-4.8); Lymphocytes % 24.2 %; Mean Corpuscular HGB Conc 33.4 g/dL (30-55); Mean Corpuscular Hemoglobin 29.3 pg (27-33); Mean Corpuscular Volume 87.7 fl (82-101); Mean Platelet Volume 9.3 fL (7.4-10.4); Monocytes # 0.8 10^3/uL (0.2-0.9); Monocytes % 10.7 %; Neutrophils # 3.67 10^3/uL (1.8-7.7); Neutrophils % 49.2 %; Nucleated Red Blood Cells % 0 %; Platelet Count 290 10^3/cmm (157-399); Red Blood Count 5.12 10^6/uL (3.85-5.65); Red Cell Distribution Width 16.7 % (12.1-15.1); White Blood Count 7.47 10^3/uL (3.29-11.43)
[2025-01-22 10:39] LABS: Alanine Aminotransferase 54 U/L (0-41); Albumin Level 3.6 g/dL (3.5-5.2); Alkaline Phosphatase 192 U/L (40-130); Anion Gap 16.2 (5-19); Aspartate Amino Transferase 39 U/L (0-40); Blood Urea Nitrogen 24 mg/dL (8-23); Calcium 9.6 mg/dL (8.5-10.5); Carbon Dioxide 20 mmol/L (22-29); Chloride 108 mmol/L (98-107); Creatinine Clr Calc Pharmacy 67.0978; Globulin 3.8 g/dL (1.3-4.6); Glucose 117 mg/dL (65-115); Osmolality Calculated 295 mOsm/kg (285-295); Potassium 4.2 mmol/L (3.5-5.1); Sodium 140 mmol/L (136-145); Thyroid Stimulating Hormone 0.04 uIU/mL (0.27-4.20); Total Bilirubin 0.2 mg/dL (0.15-1.2); Total Protein 7.4 g/dL (6.6-8.7)
[2025-01-22] MEDS: durvalumab 1,500 MG in sodium chloride 0.9% 250 ML 280 MG IV (12:11)
[2025-01-22 13:30] VITALS: BP 132/85; PULSE 72; RESP 17; TEMP 36.4; O2SAT 98
== END 2025-01-22 23:59 | disposition home or self-care (01) ==
PROVIDERS: Nurse Practitioner; Nurse Practitioner Family; PCP Family Medicine; Visit Provider Internal Medicine Medical Oncology
DX: Z53.9 Procedure and treatment not carried out, unspecified reason (principal); Z51.12 Encounter for antineoplastic immunotherapy; C22.0 Liver cell carcinoma; Z79.899 Other long term (current) drug therapy; F17.210 Nicotine dependence, cigarettes, uncomplicated; C79.72 Secondary malignant neoplasm of left adrenal gland; C77.2 Secondary and unspecified malignant neoplasm of intra-abdominal lymph nodes; D64.9 Anemia, unspecified
CPT/HCPCS: 36591; 80053; 84443; 85025; 96413; 99214; A4222; J7050; J9173

== ENCOUNTER 2025-02-19 08:22 | Oncology outpatient (recurring) (ONCR) | payer MEDICARE, MEDICAID, SELFPAY ==
[2025-02-19 08:52] LABS: Basophils # 0.1 10^3/uL (0.0-0.1); Basophils % 1.4 %; Eosinophils % 15.4 %; Hematocrit 46.6 % (37-53); Lymphocytes # 2.1 10^3/uL (0.8-4.8); Lymphocytes % 32.9 %; Mean Corpuscular HGB Conc 33.9 g/dL (30-55); Mean Corpuscular Hemoglobin 29.9 pg (27-33); Mean Corpuscular Volume 88.3 fl (82-101); Mean Platelet Volume 9.2 fL (7.4-10.4); Monocytes # 0.7 10^3/uL (0.2-0.9); Monocytes % 11.1 %; Neutrophils # 2.53 10^3/uL (1.8-7.7); Neutrophils % 38.9 %; Nucleated Red Blood Cells % 0 %; Platelet Count 248 10^3/cmm (157-399); Red Blood Count 5.28 10^6/uL (3.85-5.65); Red Cell Distribution Width 17.8 % (12.1-15.1)
[2025-02-19 09:12] LABS: Alanine Aminotransferase 27 U/L (0-41); Albumin Level 3.8 g/dL (3.5-5.2); Alkaline Phosphatase 146 U/L (40-130); Anion Gap 14.9 (5-19); Aspartate Amino Transferase 34 U/L (0-40); Blood Urea Nitrogen 9 mg/dL (8-23); Calcium 9.2 mg/dL (8.5-10.5); Carbon Dioxide 22 mmol/L (22-29); Chloride 103 mmol/L (98-107); Creatinine Clr Calc Pharmacy 82.6301; Globulin 3.7 g/dL (1.3-4.6); Glomerular Filtration Rate 84.4 mL/min (90-130); Glucose 121 mg/dL (65-115); Osmolality Calculated 282 mOsm/kg (285-295); Potassium 3.9 mmol/L (3.5-5.1); Sodium 136 mmol/L (136-145); Thyroid Stimulating Hormone 33.16 uIU/mL (0.27-4.20); Total Protein 7.5 g/dL (6.6-8.7)
[2025-02-19 09:26] LABS: Total Bilirubin 0.5 mg/dL (0.15-1.2)
[2025-02-19] MEDS: durvalumab 1,500 MG in sodium chloride 0.9% 250 ML 280 MG IV (10:10)
[2025-02-19 11:16] VITALS: BP 141/88; PULSE 64; RESP 17; TEMP 37; O2SAT 97
== END 2025-02-19 23:59 | disposition home or self-care (01) ==
PROVIDERS: Nurse Practitioner; PCP Family Medicine; Visit Provider Internal Medicine Medical Oncology
DX: Z51.12 Encounter for antineoplastic immunotherapy (principal); C22.0 Liver cell carcinoma; Z79.899 Other long term (current) drug therapy; C79.72 Secondary malignant neoplasm of left adrenal gland; D50.8 Other iron deficiency anemias
CPT/HCPCS: 80053; 84443; 85025; 96413; 99214; A4222; J7050; J9173

== ENCOUNTER → 2025-02-21 13:48 | Outpatient (BNVA) | payer MEDICARE, MEDICAID, SELFPAY | PROVIDERS: PCP Family Medicine; Visit Provider Internal Medicine | DX: R07.9 Chest pain, unspecified (principal); I10 Essential (primary) hypertension; C22.0 Liver cell carcinoma; F17.210 Nicotine dependence, cigarettes, uncomplicated; R06.02 Shortness of breath | CPT/HCPCS: 93005; 99204 ==

== ENCOUNTER 2025-03-06 10:31 | Oncology outpatient (recurring) (ONCR) | payer MEDICARE, SELFPAY ==
[2025-03-05 12:51] LABS: Free T4 Free Thyroxine 0.56 ng/dL (0.82-1.77); Thyroid Stimulating Hormone 27.64 uIU/mL (0.27-4.20)
[2025-03-05] MEDS: iohexol 350 mg/mL 500 mL Btl (per mL) PO (16:39)
--- NOTE | 2025-03-05 17:00 | CT_ITS ---
WS: [id number] CT CHEST, ABDOMEN AND PELVIS WITH CONTRAST HISTORY: Follow-up liver and adrenal gland cancer. TECHNIQUE: Contiguous 5 mm axial imaging performed through the chest, abdomen and pelvis with IV contrast, oral contrast has been provided. Coronal and sagittal reformats chest. Coronal and sagittal reformats through the abdomen and pelvis. All CT scans at [facility] use at least one of these dose optimization techniques: automated exposure control; mA and/or kV adjustment per patient size (includes targeted exams where dose is matched to clinical indication); or iterative reconstruction. CONTRAST: Omnipaque 350; 100 mL IV. DLP: 811.92 mGy.cm COMPARISON: 10/02/2024, 08/16/2023, Chest CT: Mild hyperexpansion of the lungs. There is a new 10 mm groundglass nodule inferior segment of the RIGHT upper lobe. New LEFT upper lobe ill-defined 4 mm nodule. There is also a 2 mm nodule in the RIGHT upper lobe just above the fissure. No pleural effusions or pericardial effusions. Heart size is normal. No mediastinal or hilar adenopathy. Mild atherosclerosis aorta. Mild pulmonary enlargement. RIGHT IJ Mediport. Abdomen CT: Reidentified is the treated RIGHT hepatic liver lesion measuring 2.3 x 3.0 cm with no increase in size. Reidentified are multiple peripheral liver masses greatest towards the diaphragmatic surface and involving the hepatic capsule. The largest nodule measures 3.2 x 2.0 cm and is very highly positioned near the diaphragm. Multiple additional smaller enhancing liver lesions are identified highly suspicious for metastatic disease with minimal progression since 10/02/2024. Normal portal vein. Negative gallbladder. Normal spleen with granulomata. Negative pancreas. No pancreatic duct dilatation. Normal RIGHT adrenal gland. LEFT adrenal metastatic nodule has significantly decreased in size now measuring 1.5 x 1.2 cm. No renal obstruction or mass. Normal GI tract. No obstruction. No colitis. Moderate sigmoid diverticulosis. Reidentified are lymph nodes near the laly hepatis of the liver with the largest measuring 1.7 cm which is unchanged. No ascites. Pelvic CT: No free fluid. Urinary bladder is not distended. There is diffuse bladder wall thickening due to the under distention. Increase in lumbar lordosis. Advanced degenerative disc disease in the thoracic and lumbar spines. No destructive bone lesions. CT/CT chest abdpel w/*[id number] IMPRESSION: 1. New, 10 mm groundglass nodule RIGHT upper lobe. Additional 2 mm nodule is n ew RIGHT upper lobe and a 4 mm new LEFT upper lobe nodule. Postinflammatory ashu faina early metastatic sites. Recommend short-term chest CT follow-up, 3 months. 2. Reidentified are the multiple peripheral hepatic masses suspicious for prog ression of known neoplastic disease within the liver. Only minimal progression since 10/02/2024. Largest lesion is subcapsular towards the diaphragmatic surfac e measuring 3.2 x 2.0 cm. Multiple additional smaller peripherally enhancing le sions within the liver. 3. Stable previously treated neoplasm RIGHT hepatic lobe. 4. Stable laly hepatis lymph nodes. 5. No ascites. 6. Significant decrease in size of the LEFT adrenal metastatic nodule now edna uring 1.5 x 1.2 cm.
[2025-03-05] MEDS: iohexol 350 mg/mL 500 mL Btl (per mL) IV (17:01)
--- NOTE | 2025-03-06 | ECG_ITS ---
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 Interpretive Statements LEXISCAN SESTAMIBI STRESS TEST Procedure: At the baseline, the blood pressure was 141/102 mmHg with a heart rate of 66 bpm. The electrocardiogram showed normal sinus rhythm, normal axis with normal ST and T's. The Lexiscan was infused over a period of 20 seconds. A total of 0.4 mg of Lexiscan was infused. The stress phase was continued for a total of 5 minutes. Heart rate was at the end of stress phase was 84 bpm and a blood pressure of 127/107 mmHg. The EKG at the peak infusion revealed normal sinus rhythm with no significant ST-T wave changes. Sestamibi was injected 20 seconds after the Lexiscan infusion. Blood pressure at the end of recovery phase was 146/114 mmHg with a heart rate of 82 bpm. Conclusion: 1. Normal EKG response to Lexiscan infusion 2. No Lexiscan induced chest pain or cardiac arrhythmia. 3. Normal blood pressure and heart rate response. 4. Sestamibi/sestamibi perfusion scan pending; see separate report. Electronically Signed On 03-23-2025 13:36:12 CDT by Bentley Haynes M.D. [email or web address]
--- NOTE | 2025-03-06 10:55 | NMCV_ITS ---
NM chad perf SPECT r/s* [id number] Jack Dhaliwal Age: 64 Gender: M : 1960 Exam Date: 03/06/2025 11:28 Ordering Phys: Tevin Zazueta MD Technologist: MAXINE Clemons Exam Location: [facility] Indications: cp STRESS TEST Please see separate stress test report in [facility] for full findings IMAGE PROTOCOL Rest/Stress 1 Lexiscan Day Radiopharmaceutical Dose (mCi) Administration Site Administered by Rest: Tc-99m 10.7 IV Supriya Goss, BATTERYMAN Sestamibi Stress:Tc-99m 32.6 IV Supriya Goss, BATTERYMAN Sestamibi Rest: 06-Mar-2025 60 Discovery 630 Stress: 06-Mar-2025 30 Discovery 630 0.4mg Lexiscan. Images obtained in supine and prone position. SPECT RESULTS Technical Quality: Good Raw Data Analysis: Normal Image Corrections: No attenuation or motion correction applied Summed Stress Score: 0 Summed Rest Score: 1 Summed Difference Score: 0 PERFUSION FINDINGS SPECT images demonstrate homogeneous tracer distribution throughout the myocardium. FUNCTIONAL RESULTS (calculated via Gated SPECT) Stress Image LV EF (%): 68 Stress EDV (mL):77 TID: 1.07 Stress ESV (mL):25 FUNCTIONAL FINDINGS: There is normal left ventricular systolic function. IMPRESSIONS 1. Normal myocardial perfusion imaging with no evidence of ischemia. 2. LV systolic function is normal. Bentley Haynes MD (Electronically Signed) Final Date: 09 March 2025 12:20 S
[2025-03-06 10:57] VITALS: BMI 24.5
[2025-03-06 12:13] VITALS: BP 146/114; PULSE 82
[2025-03-07 09:54] LABS: Thyroid Peroxidase Antobodies 7 IU/mL (<9)
[2025-03-13 18:04] LABS: TSH Receptor Binding Antibody 1.14 IU/L (< OR = 2.00)
== END 2025-03-13 10:48 | disposition home or self-care (01) ==
LOC: ONCMED 03-07 09:03
PROVIDERS: Internal Medicine; PCP Family Medicine; Visit Provider Internal Medicine Medical Oncology
DX: C22.0 Liver cell carcinoma (principal); Z79.899 Other long term (current) drug therapy; C78.7 Secondary malignant neoplasm of liver and intrahepatic bile duct; C79.72 Secondary malignant neoplasm of left adrenal gland; R06.02 Shortness of breath; R07.9 Chest pain, unspecified; I10 Essential (primary) hypertension; R16.0 Hepatomegaly, not elsewhere classified
CPT/HCPCS: 36415; 71260; 74177; 78452; 83516; 84439; 84443; 84480; 86376; 86800; 93017; 99204; A9500; J2785

== ENCOUNTER 2025-04-02 11:15 | Oncology outpatient (recurring) (ONCR) | payer MEDICARE, SELFPAY ==
[2025-03-19 07:47] LABS: Hematocrit 44.2 % (37-53); Hemoglobin 15.00 g/dL (11.27-16.99); Mean Corpuscular HGB Conc 33.9 g/dL (30-55); Mean Corpuscular Hemoglobin 31.3 pg (27-33); Mean Corpuscular Volume 92.1 fl (82-101); Nucleated Red Blood Cells % 0 %; Platelet Count 210 10^3/cmm (157-399); Red Blood Count 4.80 10^6/uL (3.85-5.65); White Blood Count 6.57 10^3/uL (3.29-11.43)
[2025-03-19 08:22] LABS: Alanine Aminotransferase 16 U/L (0-41); Albumin Level 3.5 g/dL (3.5-5.2); Alkaline Phosphatase 138 U/L (40-130); Blood Urea Nitrogen 13 mg/dL (8-23); Calcium 9.1 mg/dL (8.5-10.5); Carbon Dioxide 23 mmol/L (22-29); Chloride 104 mmol/L (98-107); Creatinine Clr Calc Pharmacy 83.6661; Globulin 3.8 g/dL (1.3-4.6); Glucose 141 mg/dL (65-115); Osmolality Calculated 288 mOsm/kg (285-295); Sodium 138 mmol/L (136-145); Thyroid Stimulating Hormone 30.26 uIU/mL (0.27-4.20); Total Protein 7.3 g/dL (6.6-8.7)
[2025-03-19 08:23] LABS: Anion Gap 14.6 (5-19); Aspartate Amino Transferase 24 U/L (0-40); Potassium 3.6 mmol/L (3.5-5.1)
[2025-03-19] MEDS: durvalumab 1,500 MG in sodium chloride 0.9% 250 ML 280 MG IV (09:31)
[2025-03-19 10:50] VITALS: BP 158/93; PULSE 60; RESP 17; TEMP 36.6; O2SAT 99
--- NOTE | 2025-03-29 11:15 | USCV_ITS ---
Jack Dhaliwal Age: 64 Gender: M : 1960 Exam Date: 03/29/2025 11:57 Ordering Phys: Bentley Haynes M.D ([email or web address]) Technologist: Bubba Srinivasan [place] [facility] [place]: sob BP: 158 / 93 HR: 72 Rhythm: Sinus Technical Quality: Adequate MEASUREMENTS (Male / Female) Normal Values 2D ECHO LV Diastolic Diameter PLAX 4.7 cm 4.2 - 5.9 / 3.9 - 5.3 cm IVS Diastolic Thickness 1.1 cm 0.6 - 1.0 / 0.6 - 0.9 cm IVS Systolic Thickness 1.5 cm LVPW Diastolic Thickness 1.3 cm 0.6 - 1.0 / 0.6 - 0.9 cm LVPW Systolic Thickness 1.7 cm LVOT Diameter 2.1 cm LV Ejection Fraction 2D Teich 69.4 % LV Ejection Fraction MOD 4C 59.1 % LV Ejection Fraction MOD 2C 61.9 % LV Ejection Fraction 2C AL 63.2 % LA Diameter 3.5 cm RA Systolic Volume 4C AL 53.4 ml RA Systolic Volume 4C MOD 45.5 ml LA Sys Volume AL 46.4 cm cubed LA Sys Volume Index AL 23.8 cm cubed/m squared Aorta at Sinotubular Diameter 2.8 cm IVC Diameter 1.7 cm M-MODE LA Ao Ratio MM 1.3 AV Cusp Separation MM 2.3 cm DOPPLER AV Peak Velocity 138.0 cm/s LVOT Peak Velocity 129.0 cm/s AV Area Cont Eq vti 3.4 cm squared AV Area Cont Eq pk 3.2 cm squared MV Peak Velocity 86.0 cm/s MV Area PHT 3.3 cm squared Mitral E to A Ratio 0.7 TR Peak Velocity 362.0 cm/s TR Peak Gradient 52.4 mmHg TR Mean Velocity 302.0 cm/s TR Mean Gradient 38.1 mmHg TR Velocity Time Integral 95.5 cm PV Peak Velocity 81.7 cm/s RV Ejection Time 0.3 s FINDINGS Left Ventricle Left ventricle is normal in size. LV systolic function is normal with EF of 60-65%. No regional wall motion abnormalities are seen. Mild left ventricular hypertrophy noted. Grade 1 diastolic dysfunction. Right Ventricle Normal in size and function Right Atrium Normal in size Left Atrium Normal in size Mitral Valve Structurally normal mitral valve. Mild mitral regurgitation. Aortic Valve Structurally normal aortic valve. No significant stenosis. Mild aortic regurgitation Tricuspid Valve Insufficient TR jet to calculate RVSP Pulmonic Valve Not well visualized Pericardium Normal Aorta Normal in size IVC Appears to be normal CONCLUSIONS LV systolic function is normal with EF of 60 to 65%. Mild left ventricular hypertrophy. Grade 1 diastolic dysfunction. Mild mitral regurgitation. Mild aortic regurgitation. No comparison studies are available. Bentley Haynes MD (Electronically Signed) Final Date: 01 April 2025 17:06 S
--- NOTE | 2025-04-02 11:15 | US_ITS ---
WS: [id number] THYROID ULTRASOUND HISTORY: Hyperthyroidism. COMPARISON: None available. Right lobe: 1.3 cm x 1.7 cm x 3.7 cm (w x ap x l). Volume: 4.1 cm3. Normal sized gland. Mild coarse echotexture and lobulated peripheral thyroid. No increased vascularity. There are a few scattered calcifications. No mass. Left lobe: 1.1 cm x 1.8 cm x 3.9 cm (w x ap x l). Volume: 3.8 cm3. Normal sized gland with mild heterogeneity. No mass. Normal vascularity. Isthmus: 0.3 cm. US/US thyroid [id number] IMPRESSION: Mildly heterogeneous thyroid gland. No mass.
== END 2025-04-09 06:35 | disposition home or self-care (01) ==
LOC: RAD 04-03 → ONCMED 04-03 09:00
PROVIDERS: PCP Family Medicine; Visit Provider Internal Medicine Medical Oncology
DX: E05.90 Thyrotoxicosis, unspecified without thyrotoxic crisis or storm; R93.89 Abnormal findings on diagnostic imaging of other specified body structures; Z53.9 Procedure and treatment not carried out, unspecified reason
CPT/HCPCS: 76536; 80053; 84443; 85025; 93306; 96413; 99214; A4222; J7050; J9173

== ENCOUNTER 2025-04-16 07:15 | Oncology outpatient (recurring) (ONCR) | payer MEDICARE, SELFPAY ==
[2025-04-16 07:40] LABS: Hematocrit 41.1 % (37-53); Hemoglobin 14.00 g/dL (11.27-16.99); Mean Corpuscular HGB Conc 34.1 g/dL (30-55); Mean Corpuscular Hemoglobin 31.8 pg (27-33); Mean Corpuscular Volume 93.4 fl (82-101); Nucleated Red Blood Cells % 0 %; Platelet Count 237 10^3/cmm (157-399); Red Blood Count 4.40 10^6/uL (3.85-5.65); White Blood Count 7.22 10^3/uL (3.29-11.43)
[2025-04-16 08:07] LABS: Alanine Aminotransferase 12 U/L (0-41); Albumin Level 3.7 g/dL (3.5-5.2); Alkaline Phosphatase 136 U/L (40-130); Anion Gap 13.9 (5-19); Aspartate Amino Transferase 19 U/L (0-40); Blood Urea Nitrogen 17 mg/dL (8-23); Calcium 8.9 mg/dL (8.5-10.5); Carbon Dioxide 24 mmol/L (22-29); Chloride 107 mmol/L (98-107); Free T4 Free Thyroxine 0.90 ng/dL (0.82-1.77); Globulin 3.8 g/dL (1.3-4.6); Glucose 136 mg/dL (65-115); Osmolality Calculated 296 mOsm/kg (285-295); Potassium 3.9 mmol/L (3.5-5.1); Sodium 141 mmol/L (136-145); Thyroid Stimulating Hormone 18.71 uIU/mL (0.27-4.20); Total Protein 7.5 g/dL (6.6-8.7)
[2025-04-16] MEDS: durvalumab 1,500 MG in sodium chloride 0.9% 250 ML 280 MG IV (09:30)
[2025-04-16 10:47] VITALS: BP 146/83; PULSE 66; RESP 16; TEMP 36.8; O2SAT 94
== END 2025-04-16 23:59 | disposition home or self-care (01) ==
PROVIDERS: PCP Family Medicine; Visit Provider Internal Medicine Medical Oncology
DX: Z51.12 Encounter for antineoplastic immunotherapy (principal); C22.0 Liver cell carcinoma; C79.72 Secondary malignant neoplasm of left adrenal gland; E05.90 Thyrotoxicosis, unspecified without thyrotoxic crisis or storm; R93.89 Abnormal findings on diagnostic imaging of other specified body structures; R06.02 Shortness of breath; R93.1 Abnormal findings on diagnostic imaging of heart and coronary circulation; I34.0 Nonrheumatic mitral (valve) insufficiency; I35.1 Nonrheumatic aortic (valve) insufficiency; F17.200 Nicotine dependence, unspecified, uncomplicated; D50.8 Other iron deficiency anemias; Z79.899 Other long term (current) drug therapy
CPT/HCPCS: 80053; 84439; 84443; 84481; 85025; 96413; 99214; 99215; A4222; J7050; J9173

== ENCOUNTER 2025-04-24 08:52 | Outpatient (CLI) | payer MEDICARE, MEDICAID, SELFPAY ==
--- NOTE | 2025-04-24 09:15 | FL_ITS ---
WS: [id number] Barium swallow and esophagram, 04/24/2025 Clinical Data: Pressure in mid chest with 1 month history of cough. Comparison: None. Fluoroscopy time: 1min [id number] # of spot films: 29 Findings: The patient swallowed the thick and thin barium, and it flowed through the hypopharynx without hesitation. No stricture, mass, polyp or erosion was seen. No penetration or aspiration occurred. There is minimal impingement onto the posterior hypopharynx by osteoarthritis of the cervical vertebral bodies. The barium entered the esophagus and there was normal motility throughout. No reflux, stricture, polyp, mass, erosion or ulcer was noted. There was a small sliding hiatal hernia. The barium passed normally into the stomach. There is a right infusion catheter. FL/FL barium swallow [id number] Impression: 1. Minimal impingement on the posterior hypopharynx by cervical osteoarthritis. 2. Small hiatal hernia without significant reflux.
== END 2025-04-24 08:53 | disposition home or self-care (01) ==
LOC: RAD 08:52
PROVIDERS: PCP Family Medicine; Visit Provider Nurse Practitioner
DX: R13.10 Dysphagia, unspecified (principal); F17.200 Nicotine dependence, unspecified, uncomplicated; C22.0 Liver cell carcinoma; C79.72 Secondary malignant neoplasm of left adrenal gland; E03.9 Hypothyroidism, unspecified; K44.9 Diaphragmatic hernia without obstruction or gangrene; M47.812 Spondylosis without myelopathy or radiculopathy, cervical region
CPT/HCPCS: 74220

== ENCOUNTER 2025-05-14 07:49 | Oncology outpatient (recurring) (ONCR) | payer MEDICARE, MEDICAID, SELFPAY ==
[2025-05-14 08:25] LABS: Hematocrit 39.8 % (37-53); Hemoglobin 14.10 g/dL (11.27-16.99); Mean Corpuscular HGB Conc 35.4 g/dL (30-55); Mean Corpuscular Hemoglobin 33.1 pg (27-33); Mean Corpuscular Volume 93.4 fl (82-101); Nucleated Red Blood Cells % 0 %; Platelet Count 217 10^3/cmm (157-399); Red Blood Count 4.26 10^6/uL (3.85-5.65); White Blood Count 5.58 10^3/uL (3.29-11.43)
[2025-05-14 08:59] LABS: Alanine Aminotransferase 11 U/L (0-41); Albumin Level 3.8 g/dL (3.5-5.2); Alkaline Phosphatase 120 U/L (40-130); Anion Gap 12.1 (5-19); Aspartate Amino Transferase 25 U/L (0-40); Blood Urea Nitrogen 13 mg/dL (8-23); Calcium 9.2 mg/dL (8.5-10.5); Carbon Dioxide 26 mmol/L (22-29); Chloride 101 mmol/L (98-107); Creatinine Clr Calc Pharmacy 84.4948; Free T4 Free Thyroxine 1.06 ng/dL (0.82-1.77); Globulin 4.0 g/dL (1.3-4.6); Glucose 141 mg/dL (65-115); Osmolality Calculated 282 mOsm/kg (285-295); Potassium 4.1 mmol/L (3.5-5.1); Sodium 135 mmol/L (136-145); Thyroid Stimulating Hormone 9.81 uIU/mL (0.27-4.20); Total Protein 7.8 g/dL (6.6-8.7)
[2025-05-14] MEDS: durvalumab 1,500 MG in sodium chloride 0.9% 250 ML 280 MG IV (09:25)
[2025-05-14 10:39] VITALS: BP 142/94; TEMP 36.1
== END 2025-05-14 23:59 | disposition home or self-care (01) ==
PROVIDERS: Nurse Practitioner; PCP Family Medicine; Visit Provider Internal Medicine Medical Oncology
DX: Z51.12 Encounter for antineoplastic immunotherapy (principal); C22.0 Liver cell carcinoma; C79.72 Secondary malignant neoplasm of left adrenal gland; I10 Essential (primary) hypertension; F17.200 Nicotine dependence, unspecified, uncomplicated; D50.8 Other iron deficiency anemias; Z79.899 Other long term (current) drug therapy
CPT/HCPCS: 80053; 84439; 84443; 85025; 96413; 99214; A4222; J7050; J9173

== ENCOUNTER → 2025-05-20 13:33 | Outpatient (BNVA) | payer MEDICARE, MEDICAID, SELFPAY | PROVIDERS: PCP Family Medicine; Visit Provider Internal Medicine | DX: I13.10 Hypertensive heart and chronic kidney disease without heart failure, with stage 1 through stage 4 chronic kidney disease, or unspecified chronic kidney disease (principal); F17.210 Nicotine dependence, cigarettes, uncomplicated; N18.9 Chronic kidney disease, unspecified | CPT/HCPCS: 99213 ==

== ENCOUNTER 2025-06-11 09:30 | Oncology outpatient (recurring) (ONCR) | payer MEDICARE, SELFPAY ==
--- NOTE | 2025-06-04 13:00 | CTR_ITS ---
PROCEDURE INFORMATION: Exam: CT Chest With Contrast; Diagnostic Exam date and time: 06/04/2025 1:17 PM Age: 64 years old Clinical indication: Condition or disease; Cancer; Other: Hepatocellular carcinoma; Prior surgery; Surgery date: 6+ months; Surgery type: Port TECHNIQUE: Imaging protocol: Diagnostic computed tomography of the chest with contrast. Radiation optimization: All CT scans at this facility use at least one of these dose optimization techniques: automated exposure control; mA and/or kV adjustment per patient size (includes targeted exams where dose is matched to clinical indication); or iterative reconstruction. Contrast material: OMNI 350; Contrast volume: 100 ml; Contrast route: INTRAVENOUS (IV); COMPARISON: CT chest abdpel w/*[id number] 03/05/2025 4:58 PM RADIATION DOSE METRICS: Total DLP (mGy-cm): 962.9 FINDINGS: Tubes, catheters and devices: Right-sided Port-A-Cath is present with the tip in the SVC. Lungs: No consolidation. Prior ground-glass nodule is no longer identified. No pulmonary nodules are identified. Pleural spaces: Unremarkable. No pneumothorax. No pleural effusion. Heart: Unremarkable. No cardiomegaly. No pericardial effusion. Coronary arteries: There are no coronary artery calcifications. Lymph nodes: Unremarkable. No enlarged lymph nodes. Vasculature: Unremarkable. No aortic aneurysm. Bones/joints: Old right rib fractures are present. Mild degenerative changes of the lower thoracic spine is noted. Soft tissues: Unremarkable. IMPRESSION: No evidence of metastatic disease to the chest. PROCEDURE INFORMATION: Exam: CT Abdomen And Pelvis With Contrast Exam date and time: 06/04/2025 1:17 PM Age: 64 years old Clinical indication: Condition or disease; Cancer; Other: Hepatocellular carcinoma; Prior surgery; Surgery date: 6+ months; Surgery type: Port TECHNIQUE: Imaging protocol: Computed tomography of the abdomen and pelvis with contrast. Radiation optimization: All CT scans at this facility use at least one of these dose optimization techniques: automated exposure control; mA and/or kV adjustment per patient size (includes targeted exams where dose is matched to clinical indication); or iterative reconstruction. Contrast material: OMNI 350; Contrast volume: 100 ml; Contrast route: INTRAVENOUS (IV); COMPARISON: CT chest abdpel w/*[id number] 03/05/2025 4:58 PM RADIATION DOSE METRICS: Total DLP (mGy-cm): 962.9 FINDINGS: Lungs: Visualized portions of the lungs are clear. No effusions. Liver: Circumscribed hypoattenuating mass in the right lobe of the liver is unchanged in size. It measures roughly 3 point 3 x 2.4 cm. Along the right lobe of the liver laterally and along the dome there are multiple low-attenuation lesions. One subcapsular lesion has increased in size measuring 2.6 x 4.0 cm compared to the prior study when it measured 1.7 x 2.9 cm. Gallbladder and biliary ducts: Normal. No calcified stones. No ductal dilation. Pancreas: Normal. No ductal dilation. Spleen: Granulomas are present in the spleen. Adrenal glands: There is mild nodularity of the left adrenal gland. This is decreased since the prior examination. Kidneys and ureters: Normal. No hydronephrosis. Stomach and bowel: Colonic diverticulosis is present without diverticulitis. Appendix: No evidence of appendicitis. Intraperitoneal space: Unremarkable. No free air. No significant fluid collection. Vasculature: Unremarkable. No abdominal aortic aneurysm. Lymph nodes: Periportal lymph nodes are noted with maximum AP diameter of 1.1 cm. They appear stable. No enlarged lymph nodes. Urinary bladder: There is thickening of the wall of the bladder concerning for inflammation and/or infection. Reproductive: Unremarkable as visualized. Bones/joints: There are degenerative changes of the spine especially from L1-L3. Impression: Soft tissues: Unremarkable. CT/CT chest abdpel w/*[id number] IMPRESSION: 1. Stable lesion right lobe of the liver . 2. Increasing low-attenuation lesion along the hepatic capsule with multiple ill-defined adjacent low attenuation and heterogeneous lesions. 3. Slight decrease in the nodularity of the left adrenal gland. 4. Stable Genie portal lymph nodes. 5. Colonic diverticulosis is present without diverticulitis.
[2025-06-04] MEDS: iohexol 350 mg/mL 500 mL Btl (per mL) PO (13:20)
[2025-06-04] MEDS: iohexol 350 mg/mL 500 mL Btl (per mL) IV (13:21)
[2025-06-11 09:22] LABS: Hematocrit 41.3 % (37-53); Hemoglobin 14.70 g/dL (11.27-16.99); Mean Corpuscular HGB Conc 35.6 g/dL (30-55); Mean Corpuscular Hemoglobin 33.8 pg (27-33); Mean Corpuscular Volume 94.9 fl (82-101); Nucleated Red Blood Cells % 0 %; Platelet Count 221 10^3/cmm (157-399); Red Blood Count 4.35 10^6/uL (3.85-5.65); White Blood Count 6.42 10^3/uL (3.29-11.43)
[2025-06-11 09:50] LABS: Alanine Aminotransferase 12 U/L (0-41); Albumin Level 3.9 g/dL (3.5-5.2); Alkaline Phosphatase 124 U/L (40-130); Anion Gap 16.6 (5-19); Aspartate Amino Transferase 18 U/L (0-40); Blood Urea Nitrogen 12 mg/dL (8-23); Calcium 9.1 mg/dL (8.5-10.5); Carbon Dioxide 23 mmol/L (22-29); Chloride 103 mmol/L (98-107); Globulin 4.0 g/dL (1.3-4.6); Glucose 157 mg/dL (65-115); Osmolality Calculated 291 mOsm/kg (285-295); Potassium 3.6 mmol/L (3.5-5.1); Sodium 139 mmol/L (136-145); Thyroid Stimulating Hormone 12.91 uIU/mL (0.27-4.20); Total Protein 7.9 g/dL (6.6-8.7)
[2025-06-11] MEDS: durvalumab 1,500 MG in sodium chloride 0.9% 250 ML 280 MG IV (11:31)
[2025-06-11 13:12] VITALS: BP 157/96; PULSE 94; RESP 17; TEMP 36.5; O2SAT 94
== END 2025-06-11 23:59 | disposition home or self-care (01) ==
PROVIDERS: Internal Medicine Medical Oncology; PCP Family Medicine; Visit Provider Nurse Practitioner
DX: Z53.9 Procedure and treatment not carried out, unspecified reason (principal); Z51.12 Encounter for antineoplastic immunotherapy; C22.0 Liver cell carcinoma; C79.72 Secondary malignant neoplasm of left adrenal gland; D50.8 Other iron deficiency anemias; F17.210 Nicotine dependence, cigarettes, uncomplicated; Z79.899 Other long term (current) drug therapy
CPT/HCPCS: 71260; 74177; 80053; 84443; 85025; 96413; 99214; A4222; J7050; J9173

== ENCOUNTER → 2025-06-18 11:40 | Outpatient (BNVA) | payer MEDICARE, MEDICAID, OTHER, SELFPAY | PROVIDERS: PCP Family Medicine; Visit Provider Internal Medicine | DX: E03.9 Hypothyroidism, unspecified (principal); C22.9 Malignant neoplasm of liver, not specified as primary or secondary | CPT/HCPCS: 99214 ==

== ENCOUNTER 2025-06-28 12:46 | Outpatient (CLI) | payer MEDICARE, MEDICAID, SELFPAY ==
--- NOTE | 2025-06-28 13:00 | MRR_ITS ---
PROCEDURE INFORMATION: Exam: MR Abdomen Without and With Contrast Exam date and time: 06/28/2025 1:06 PM Age: 64 years old Clinical indication: Abnormal findings; Abnormal radiologic finding of the abdomen; Radiologic exam and body structure: Liver CT abd/pel; Prior surgery; Surgery date: 6+ months; Surgery type: Port; History of liver cancer with mets/ increasing low-attenuation lesion along the hepatic capsule with multiple. Ill-defined adjacent low attenuation and heterogeneous lesions; This was noted on a recent CT abd/pel w(06-04-25); Additional info: See 06/04/25 CT c/a/p re: Liver TECHNIQUE: Imaging protocol: Magnetic resonance imaging of the abdomen without and with contrast. COMPARISON: 1. CT chest abdpel w/*[id number] 03/05/2025 4:[address] chest abdpel w/*[id number] 06/04/2025 1:17 PM 3. MR abdomen wo/w con* [id number] 09/14/2023 2:41 PM FINDINGS: Limitations: Image quality is degraded by patient motion. Liver: Stable 4.0 cm oval subcapsular lesion in the right liver lobe along the anterior dome, which is of increased T2 signal. No central enhancement with a thin rim of enhancement. Stable 3.0 cm oval lesion in the central right liver lobe which shows mild early enhancement and washout on the delayed phase. There are multiple tiny subcapsular rim enhancing lesions in the dome of the right liver lobe. Multiple small nonenhancing subcapsular lesions in the right liver lobe adjacent to the gallbladder. Gallbladder and biliary ducts: Multiple small stones in the gallbladder. The gallbladder is partially contracted without wall thickening. The common bile duct is mildly dilated measuring 9 mm with a 4 mm distal filling defect. Pancreas: Unremarkable. No ductal dilation. Spleen: Unremarkable. No splenomegaly. Adrenal glands: Unremarkable. No mass. Kidneys: Unremarkable. No solid mass. No hydronephrosis. Stomach and bowel: Visualized stomach and intestines are unremarkable. Intraperitoneal space: No free fluid. Vasculature: No abdominal aortic aneurysm. Lymph nodes: No enlarged nodes. Bones/joints: Unremarkable. No suspicious lesions. Soft tissues: Unremarkable. MR/MR abdomen wo/w con* [id number] IMPRESSION: 1. 4.0 cm subcapsular rim enhancing lesion in the dome of the right liver lobe with multiple small adjacent rim enhancing lesions. Metastatic malignancy can not be excluded.. 2. 3.0 cm oval lesion in the central right liver lobe with mild enhancement and washout. This is suspicious for residual malignant neoplasm. 3. Multiple tiny nonenhancing subcapsular lesions in the right liver lobe, adjacent to the gallbladder. This could represent previously treated disease. 4. Mild dilatation of the common bile duct with a 4 mm distal intraductal calculus. 5. Cholelithiasis.
== END 2025-06-28 12:47 | disposition home or self-care (01) ==
LOC: RAD 12:48
PROVIDERS: PCP Family Medicine; Visit Provider Nurse Practitioner
DX: C22.0 Liver cell carcinoma (principal); Q44.5 Other congenital malformations of bile ducts; K80.20 Calculus of gallbladder without cholecystitis without obstruction
CPT/HCPCS: 74183

== ENCOUNTER 2025-07-09 09:31 | Oncology outpatient (recurring) (ONCR) | payer MEDICARE, MEDICAID, SELFPAY ==
[2025-07-09] MEDS: alteplase 1 mg/mL SDV 2 mL 2 MG INTRACATH (10:03)
[2025-07-09 10:18] LABS: Hematocrit 42.5 % (37-53); Hemoglobin 14.60 g/dL (11.27-16.99); Mean Corpuscular HGB Conc 34.4 g/dL (30-55); Mean Corpuscular Hemoglobin 33.5 pg (27-33); Mean Corpuscular Volume 97.5 fl (82-101); Nucleated Red Blood Cells % 0 %; Platelet Count 249 10^3/cmm (157-399); Red Blood Count 4.36 10^6/uL (3.85-5.65); White Blood Count 6.30 10^3/uL (3.29-11.43)
[2025-07-09 10:41] LABS: Alanine Aminotransferase 12 U/L (0-41); Albumin Level 3.9 g/dL (3.5-5.2); Alkaline Phosphatase 132 U/L (40-130); Anion Gap 17.0 (5-19); Aspartate Amino Transferase 17 U/L (0-40); Blood Urea Nitrogen 15 mg/dL (8-23); Calcium 9.2 mg/dL (8.5-10.5); Carbon Dioxide 23 mmol/L (22-29); Chloride 104 mmol/L (98-107); Globulin 3.5 g/dL (1.3-4.6); Glucose 121 mg/dL (65-115); Osmolality Calculated 292 mOsm/kg (285-295); Potassium 4.0 mmol/L (3.5-5.1); Sodium 140 mmol/L (136-145); Thyroid Stimulating Hormone 8.16 uIU/mL (0.27-4.20); Total Protein 7.4 g/dL (6.6-8.7)
[2025-07-09 11:24] VITALS: BP 129/80; PULSE 63; RESP 17; TEMP 36.3; O2SAT 98
[2025-07-09] MEDS: durvalumab 1,500 MG in sodium chloride 0.9% 250 ML 280 MG IV (12:22)
[2025-07-09 13:27] VITALS: BP 147/85; PULSE 72
== END 2025-07-09 23:59 | disposition home or self-care (01) ==
PROVIDERS: PCP Family Medicine; Visit Provider Nurse Practitioner
DX: Z51.12 Encounter for antineoplastic immunotherapy (principal); C22.0 Liver cell carcinoma; C79.72 Secondary malignant neoplasm of left adrenal gland; C77.2 Secondary and unspecified malignant neoplasm of intra-abdominal lymph nodes; F17.200 Nicotine dependence, unspecified, uncomplicated; D50.8 Other iron deficiency anemias; K80.20 Calculus of gallbladder without cholecystitis without obstruction; Z79.899 Other long term (current) drug therapy; Z95.828 Presence of other vascular implants and grafts
CPT/HCPCS: 36593; 80053; 84443; 85025; 96413; 99214; A4222; J2997; J7050; J9173

== ENCOUNTER 2025-08-06 09:22 | Oncology outpatient (recurring) (ONCR) | payer MEDICARE, MEDICAID, SELFPAY ==
[2025-08-06 09:46] LABS: Hematocrit 42.5 % (37-53); Hemoglobin 14.70 g/dL (11.27-16.99); Mean Corpuscular HGB Conc 34.6 g/dL (30-55); Mean Corpuscular Hemoglobin 33.0 pg (27-33); Mean Corpuscular Volume 95.3 fl (82-101); Nucleated Red Blood Cells % 0 %; Platelet Count 201 10^3/cmm (157-399); Red Blood Count 4.46 10^6/uL (3.85-5.65); White Blood Count 5.17 10^3/uL (3.29-11.43)
[2025-08-06 10:17] LABS: Thyroid Stimulating Hormone 3.91 uIU/mL (0.27-4.20); Tumor Marker Alpha Fetoprotein 1.8 ng/mL (0-8.3)
[2025-08-06 10:28] LABS: Alanine Aminotransferase 10 U/L (0-41); Albumin Level 4.0 g/dL (3.5-5.2); Alkaline Phosphatase 123 U/L (40-130); Anion Gap 13.9 (5-19); Aspartate Amino Transferase 16 U/L (0-40); Blood Urea Nitrogen 13 mg/dL (8-23); Calcium 9.2 mg/dL (8.5-10.5); Carbon Dioxide 26 mmol/L (22-29); Chloride 105 mmol/L (98-107); Creatinine Clr Calc Pharmacy 76.2319; Globulin 3.3 g/dL (1.3-4.6); Glucose 124 mg/dL (65-115); Osmolality Calculated 294 mOsm/kg (285-295); Potassium 3.9 mmol/L (3.5-5.1); Sodium 141 mmol/L (136-145); Total Protein 7.3 g/dL (6.6-8.7)
[2025-08-06] MEDS: durvalumab 1,500 MG in sodium chloride 0.9% 250 ML 280 MG IV (11:30)
[2025-08-06 12:45] VITALS: BP 126/85; PULSE 60; RESP 17; TEMP 36.2
== END 2025-08-06 23:59 | disposition home or self-care (01) ==
PROVIDERS: Internal Medicine Medical Oncology; PCP Family Medicine; Visit Provider Nurse Practitioner
DX: Z53.9 Procedure and treatment not carried out, unspecified reason; Z51.12 Encounter for antineoplastic immunotherapy; C22.0 Liver cell carcinoma; D50.8 Other iron deficiency anemias; Z79.899 Other long term (current) drug therapy
CPT/HCPCS: 80053; 82105; 84443; 85025; 96413; 99214; A4222; J7050; J9173

== ENCOUNTER 2025-09-03 09:24 | Oncology outpatient (recurring) (ONCR) | payer MEDICARE, MEDICAID, SELFPAY ==
[2025-09-03 09:59] LABS: Hematocrit 43.5 % (37-53); Hemoglobin 14.80 g/dL (11.27-16.99); Mean Corpuscular HGB Conc 34.0 g/dL (30-55); Mean Corpuscular Hemoglobin 33.0 pg (27-33); Mean Corpuscular Volume 97.1 fl (82-101); Nucleated Red Blood Cells % 0 %; Platelet Count 252 10^3/cmm (157-399); Red Blood Count 4.48 10^6/uL (3.85-5.65); White Blood Count 6.16 10^3/uL (3.29-11.43)
[2025-09-03 10:31] LABS: Alanine Aminotransferase 11 U/L (0-41); Albumin Level 3.9 g/dL (3.5-5.2); Alkaline Phosphatase 122 U/L (40-130); Anion Gap 16.1 (5-19); Aspartate Amino Transferase 20 U/L (0-40); Blood Urea Nitrogen 14 mg/dL (8-23); Calcium 9.1 mg/dL (8.5-10.5); Carbon Dioxide 24 mmol/L (22-29); Chloride 104 mmol/L (98-107); Globulin 3.3 g/dL (1.3-4.6); Glucose 111 mg/dL (65-115); Osmolality Calculated 291 mOsm/kg (285-295); Potassium 4.1 mmol/L (3.5-5.1); Sodium 140 mmol/L (136-145); Thyroid Stimulating Hormone 7.46 uIU/mL (0.27-4.20); Total Protein 7.2 g/dL (6.6-8.7)
[2025-09-03] MEDS: durvalumab 1,500 MG in sodium chloride 0.9% 250 ML 280 MG IV (11:40)
[2025-09-03 12:57] VITALS: BP 131/82; PULSE 67; RESP 16; TEMP 36.4; O2SAT 100
== END 2025-09-03 23:59 | disposition home or self-care (01) ==
PROVIDERS: PCP Family Medicine; Visit Provider Nurse Practitioner
DX: Z51.12 Encounter for antineoplastic immunotherapy (principal); C22.0 Liver cell carcinoma; C79.72 Secondary malignant neoplasm of left adrenal gland; D50.8 Other iron deficiency anemias; K76.89 Other specified diseases of liver; Z79.899 Other long term (current) drug therapy
CPT/HCPCS: 80053; 84443; 85025; 96413; 99214; A4222; J7050; J9173